=== PATIENT | female | born 1955 | race Caucasian/White ===

== ENCOUNTER → 2018-04-02 09:08 | Outpatient (CLI) | payer OTHER, SELFPAY ==
--- NOTE | 2018-04-02 09:13 | DI.RAD.S_ITS ---
PROCEDURE: [place] CATHETER PATENCY COMPARISON: [facility], , [place] CATHETER PATENCY, 03/19/2018, 10:13. INDICATIONS: MALIGNANT NEOPLASM OF BRONCHUS OR LUNG FINDINGS: Following administration of Isovue-300 into the patient's left chest port, there is redemonstration of large fibrin sheath measuring at least 8-9 cm in length along the distal catheter which projects within a persistent left SVC. This appears unchanged since the prior study dated 03/19/18. No evidence of catheter leakage IMPRESSION: Large fibrin sheath, as before with no definite interval change Dictated by: Joey Ramon M.D. on 04/02/2018 at 10:29 Approved by: Joey Ramon M.D. on 04/02/2018 at 10:31
== END ==
PROVIDERS: Family Provider Family Medicine; PCP Family Medicine; Visit Provider Nurse Practitioner Gerontology
DX: Z45.2 Encounter for adjustment and management of vascular access device (principal); C34.90 Malignant neoplasm of unspecified part of unspecified bronchus or lung
CPT/HCPCS: 76000

== ENCOUNTER 2018-04-21 11:19 | Day surgery (SDC) | payer OTHER, SELFPAY ==
[2018-04-14 10:21] VITALS: BMI 30.7
[2018-04-21] VITALS (8 sets, daily range): BP systolic 119–166; BP diastolic 69–84; PULSE 82–103; RESP 13–20; TEMP 35.9–36.2; O2SAT 94–97; BMI 30.7
[2018-04-21] MEDS: LACTATED RINGERS 1,000 ML 42 ML IV (11:50)
--- NOTE | 2018-04-21 12:31 | SUR.PREOP ---
Pt is ready for OR at this time. PIV in place, IVF at [facility], Nursing Admission Database is complete, and INFORMATION ASSISTANT and Dr Sofia have seen Pt. Anesthesia will see Pt prior to going back to the OR. Pt will have assistance at home from housemate and daughter will be staying with her for while today.
--- NOTE | 2018-04-21 12:33 | PM.PREOP ---
Pre-operative Note Interval Note Pre-op Check: History & Physical Reviewed by Physician
[2018-04-21] MEDS: CEFAZOLIN 2 GM/100 ML FROZ.PIGGY IV (12:55)
[2018-04-21] MEDS: SODIUM CHLORIDE 0.9% FLUSH 10 ML IV (13:11)
[2018-04-21] MEDS: LIDOCAINE 1% W/EPI INJ 20 ML INJ (13:11)
[2018-04-21] MEDS: BUPIVACAINE 0.5% (PF) 30 ML VIAL INJ (13:12)
--- NOTE | 2018-04-21 13:15 | SUR.OPER ---
Supine on padded OR bed, head on gel donut, right arm padded and tucked at side, left arm secured on padded armboard legs uncrossed, safety belt at thigh, tape over blanket over lower legs .
--- NOTE | 2018-04-21 13:46 | P.OP_ITS ---
Operative Date/Time/Diagnoses - Date of procedure: 04/21/18 Time of procedure: 13:41 Pre-op diagnosis: Power port in the left arm in the setting of a left arm DVT. Port no longer functioning for hematology due to fibrin sheath. Post-op diagnosis: same Procedure & Clinicians Procedure: Right subclavian power port placement and removal of left subclavian power port Same procedure as scheduled: Yes Indications: Nonfunctioning left subclavian PowerPort in the setting of a left arm DVT. The patient has stage IV malignancy and requires ongoing central chemotherapy as well as frequent hematologic studies. Surgeon: Abi Sofia Anesthesia Type: General and Local Operative Notes Findings: 1. Very minimal bleeding at either site-either insertion or removal site 2. Right subclavian power port in good position in the superior vena cava Closure Type: primary Specimen(s): none sent Applied: implant(s) (Low profile right subclavian power port) Estimated Blood Loss (mL): 10 Procedure in detail: After obtaining informed consent, the patient was brought to the operating room and placed in the supine position on the operating table. Following successful induction of general endotracheal anesthesia, appropriate padding of all bony prominences, and placement of appropriate monitors, the right chest was prepped and draped in a standard surgical fashion. A timeout was held per SCOAP protocol. A mixture of local anesthetics was infiltrated in the deltopectoral groove on the right side. The right subclavian vein was accessed via the Seldinger technique and a wire was gently placed into the vein. Fluoroscopy was used to verify position of the wire in the subclavian vein. We next created a pocket of approximately 2 cm inferior to the access site of the vein. This was checked for size and found to fit the port nicely. The included tunneling device was used to place the tubing and the pocket connecting it to the access site of the subclavian vein. The tubing was trimmed to an appropriate length and connected to the Port-A-Cath. The Port-A-Cath was sewn into place in the pocket using interrupted Prolene sutures. The pocket was closed in 2 layers. The dilator and introducer were then gently passed over the wire and into the subclavian vein. The wire and dilator were removed leaving only the introducer. The tubing was then placed in the introducer and the introducer removed per group leader semiconductor processing's directions. The port was then flushed with saline solution and found to be functional and in good position. It was then hep- locked with 2000 units of heparin. The incision was closed in 2 layers with Vicryl and Monocryl sutures. Dermabond was applied to the skin. We now turned our attention to removal of the left subclavian port. Following infiltration with local anesthetic to create a field block, the existing healed incision on the left side was repeated. This was carried down through the skin and subcutaneous tissue to reveal the tubing of the implanted central venous device. The tubing was carefully dissected free from surrounding structures and delivered into the field. Pressure was held at the deltopectoral groove to prevent air embolus and backbleeding. After 5 minutes time, we continued with dissection of the remaining portion of the port. The reservoir itself remained in the pocket and has been incorporated into the tissue. This was carefully dissected free with judicious use of a scalpel. It was delivered into the field as a single piece with tubing attached. The incision was checked for hemostasis and irrigated with warm saline solution. Once we were satisfied that all was clean and dry, it was closed in 2 layers with Vicryl Monocryl sutures. Dermabond was applied to the skin incision. All sponge, needle, and instrument counts were correct at the conclusion of the case. The patient was allowed to awaken from sedation without difficulty and taken to the post anesthesia care unit in good condition. Complications: none Condition: stable Disposition: PACU Plan for aftercare: 1. Discharge to home 2. The port is ready for use
--- NOTE | 2018-04-21 14:00 | DI.RAD.S_ITS ---
PROCEDURE: XR CHEST 1V INDICATIONS: 62-year-old female with Port-A-Cath replacement. TECHNIQUE: One view of the chest was acquired. COMPARISON: [facility], CT, PE STUDY (CTA CHEST), 02/10/2018, 11:45. [facility], CR, XR CHEST 1V, 03/16/2018, 16:41. [facility], CR, CHEST 2 VIEW, 02/15/2018, 16:29. [facility], CR, CHEST 2 VIEW, 02/09/2018, 11:54. FINDINGS: Surgical changes and devices: Left chest wall Port-A-Cath has been removed. Right chest wall Port-A-Cath is now present, with tip in the upper superior vena cava. Lungs and pleura: No pleural effusions or pneumothorax. Left upper lung nodule now measures 2.4 cm (previously 1.9 cm). Mediastinum: Mediastinal contours appear normal. Heart size is normal. Bones and chest wall: No suspicious bony lesions. Overlying soft tissues appear unremarkable. IMPRESSION: 1. New right chest wall Port-A-Cath is in expected position. No pneumothorax. 2. Apparent size increase of left upper lung nodule up to 2.4 cm may reflect magnification differences between AP and PA projections. As such, consider more accurate confirmation of any interval size change with chest CT. Dictated by: David Crenshaw M.D. on 04/21/2018 at 14:10 Approved by: David Crenshaw M.D. on 04/21/2018 at 14:13
--- NOTE | 2018-04-21 14:14 | SUR.PHASEI ---
PT TRANSFERED TO OPD IN STABLE CONDITION, VSS. BEDSIDE REPORT GIVEN TO BENNY ESPARZA. TRANSFERED CARE OF PT TO BENNY ESPARZA AT THIS TIME. PT ALERT AND TALKING TO RN.
== END 2018-04-21 14:53 | disposition home or self-care (01) ==
PROVIDERS: PCP Family Medicine; Visit Provider Surgery
PROC: (CPT 36590; principal; 2018-04-21 12:45)
PROC: (CPT 36561; 2018-04-21 12:45)
DX: Z45.2 Encounter for adjustment and management of vascular access device (principal); C34.90 Malignant neoplasm of unspecified part of unspecified bronchus or lung; I82.722 Chronic embolism and thrombosis of deep veins of left upper extremity; E03.9 Hypothyroidism, unspecified; E78.00 Pure hypercholesterolemia, unspecified; I10 Essential (primary) hypertension; F41.9 Anxiety disorder, unspecified
CPT/HCPCS: 36561; 36590; 71045; 76001; C1788; J0690; J1100; J1644; J2250; J2405; J2704; J3010

== ENCOUNTER → 2018-05-07 12:32 | Outpatient (CLI) | payer OTHER, SELFPAY ==
--- NOTE | 2018-05-07 12:34 | DI.MRI.S_ITS ---
PROCEDURE: MR HEAD/BRAIN WO/W CON INDICATIONS: METASTATIC LUNG CANCER TECHNIQUE: Noncontrast axial T1 spin echo, axial T2 fast spin echo, sagittal and axial FLAIR, coronal T2 fast spin echo, axial gradient echo, axial diffusion and ADC through the brain. After the administration of contrast, axial and coronal T1 spin echo with fat saturation through the brain. COMPARISON: [facility], CR, XR CHEST 1V, 04/21/2018, 13:53. [facility], CT, HEAD WITHOUT CONTRAST, 11/10/2017, 15:37. FINDINGS: Image quality: Excellent. CSF spaces: Basal cisterns are patent. No extra-axial fluid collections. Ventricles are normal in size and shape. Brain: The previously seen right parieto-occipital mass has been resected. A resection cavity is seen, which demonstrates mild gliotic change and hemosiderin deposition along its margins. There is a minimal to mild amount of enhancement seen along the resection cavity margins. No midline shift. There is cerebral volume loss for age. There is periventricular white matter chronic small vessel ischemic change. The brainstem appears normal. Diffusion-weighted images demonstrate no acute ischemic insults. No chronic ischemic insults. Normal intravascular flow voids are present. Skull and face: Right posterior craniotomy changes are seen. Calvarial marrow is normal in signal. Orbits appear normal. Sinuses: Moderate to prominent bilateral vascular spots can be seen. No significant paranasal sinus disease is seen. IMPRESSION: Right parieto-occipital resection cavity, with minimal to mild enhancement seen along the resection cavity bed. This is felt most likely to be within postoperative limits. However, please consider a short term followup study in 3-6 months for further evaluation. Dictated by: Gennaro Castanon M.D. on 05/07/2018 at 13:40 Approved by: Gennaro Castanon M.D. on 05/07/2018 at 13:45
== END ==
PROVIDERS: PCP Family Medicine; Visit Provider Nurse Practitioner Gerontology
DX: C79.9 Secondary malignant neoplasm of unspecified site (principal); C34.90 Malignant neoplasm of unspecified part of unspecified bronchus or lung
CPT/HCPCS: 70553; A9579

== ENCOUNTER → 2018-07-01 06:27 | Outpatient (CLI) | payer OTHER, SELFPAY ==
--- NOTE | 2018-07-01 08:27 | DI.CT.S_ITS ---
PROCEDURE: CT SOFT TISSUE NECK W CON INDICATIONS: follow up NSLC TECHNIQUE: After the administration of intravenous contrast, 3.0 mm axial sections acquired from the sella to the aortic arch. Additional oblique axial 3.0 mm sections acquired through the pharynx. 3 mm thick coronal and sagittal reformats were generated. For radiation dose reduction, the following was used: automated exposure control. COMPARISON: [facility], CT, CHEST/ABD/PEL WITH CONTRAST, 02/01/2018, 10:02. [facility], CT, PE STUDY (CTA CHEST), 02/10/2018, 11:45. FINDINGS: Image quality: Excellent. Lymph nodes: Borderline enlarged lymph node measures 0.9 x 1.2 cm in size is seen in left supraclavicular region. Prominent 2.2 x 1.7 x 2.8 cm lymph node is noted in left infraclavicular region posterior to the level of sternoclavicular junction, not seen on previous chest CT. No other enlarged lymph nodes seen throughout the neck. Vessels: Visualized vasculature appears patent. Neck spaces: The oropharynx, nasopharynx, and pharynx demonstrate no mucosal lesions. The vocal cords, false vocal cords, pyriform sinuses, epiglottis, vallecula, and tongue base all appear normal. Extramucosal spaces appear unremarkable. Glands: The parotid and submandibular glands appear normal. Mildly enlarged right thyroid lobe with mildly heterogeneous contrast enhancement and coarse calcification is seen, which may represent nodular goiter. Miscellaneous: Visualized brain and orbits appear normal. Right chest wall Port-A-Cath tip is seen in the region of SVC. Previously described 1.6 cm lobulated left upper lobe mass with spiculated margin has increased in size, now measures approximately 2.1 x 1.7 cm in size. Right lung apex is clear. Bones: No suspicious bony lesions. Visualized sinuses and mastoids appear unremarkable. Postsurgical changes in left occipital calvarium are seen. IMPRESSION: 1. Prominent 2.2 x 1.7 x 2.8 cm lymph nodes seated left infraclavicular space posterior to the level of left sternoclavicular junction and left anterior first rib. This is new since previous CT angiogram of chest study dated 2017. Borderline enlarged left supraclavicular lymph node measures 9 x 12 mm in size. No other enlarged lymph nodes are seen in bilateral neck soft tissue. 2. Airway is patent. Normal appearing bilateral parotid glands and submandibular glands. 3. Mildly enlarged right thyroid lobe with heterogeneous enhancement and a benign appearing calcification which may represent nodular goiter. 4. Suggestion of interval increase in size of patient's known left upper lobe nodule, please correlate with CT of chest, abdomen and pelvis findings. Dictated by: Gian Costa M.D. on 07/01/2018 at 9:14 Approved by: Gian Costa M.D. on 07/01/2018 at 9:32
--- NOTE | 2018-07-01 08:27 | DI.CT.S_ITS ---
PROCEDURE: CT CHEST ABD PEL W CON INDICATIONS: follow up NSLC TECHNIQUE: After the administration of oral and intravenous contrast, 5 mm thick sections acquired from the lung apices to the symphysis. 5 mm coronal and sagittal reformats were performed, with additional 7 mm coronal MIP reformats through the lungs. For radiation dose reduction, the following was used: automated exposure control, adjustment of mA and/or kV according to patient size. COMPARISON: [facility], CT, CHEST/ABD/PEL WITH CONTRAST, 02/01/2018, 10:02. FINDINGS: Image quality: Excellent. CHEST: Lungs and pleura: Biapical scarring is seen. Patient is known lobulated 1.5 cm mass seen on previous studies now measures 2.4 x 2.3 cm in size and with spiculated margin. No other pulmonary nodule or mass is seen. No pleural effusions or pneumothorax. Central and peripheral airways appear patent and normal in caliber. Mediastinum: Heart size is normal. No pericardial effusion. Enlarged left infraclavicular lymph node posterior to left sternoclavicular junction and left anterior first rib is noted and measures 1.6 x 2.1 x 2.6 cm in its largest AP, transverse, and craniocaudal dimensions. Multiple enlarged superior mediastinal lymph nodes are again seen, now measures up to 3.3 x 3.4 x 2.9 cm in its largest AP, transverse, and clinical dimensions. This has increased in size compared to 2.8 x 1.5 cm on the previous study. Mildly prominent precarinal lymph node measures 1 cm in size is seen. Prominent left hilar lymph node measures 1.1 cm in short axis diameter is also noted. Both nodes are unchanged or slightly smaller in size compared to previous study. Thoracic aorta and central pulmonary arteries are normal in size. Esophagus is normal in caliber. There is a small hiatal hernia. Chest wall: Right chest wall Port-A-Cath tip is in the region of SVC. 1 cm left axillary lymph node is seen. A mildly prominent left supraclavicular lymph node is noted and measures up to 9 mm in short axis diameter. Thyroid gland is not well evaluated on the current study. Please refer to CT of neck soft tissue findings. ABDOMEN: Solid organs: Liver is normal in size and enhancement. Gallbladder is within normal limits. Biliary system is non dilated. Pancreas enhances normally. Spleen is normal in size and enhancement. No adrenal nodules. Kidneys demonstrate normal size and enhancement, without hydronephrosis. Left renal cyst is unchanged in size and appearance. Peritoneum and bowel: Bowel loops demonstrate normal wall thickness and caliber. No free fluid or air. Nodes and vessels: No retroperitoneal or mesenteric adenopathy by size criteria. Aorta and inferior vena cava are normal in size. Miscellaneous: No ventral hernias. There is 1.2 x 0.8 cm nodular thickening of left diaphragmatic crura, not seen on previous study. Focal 1 x 1.4 cm area of nodular thickening involving right diaphragmatic crura is also seen. PELVIS: Genitourinary: Bladder wall thickness is normal. Previously described soft tissue fullness involving left adnexal region is again seen, now measures up to 5.1 x 4.9 x 4 cm in its largest transverse, AP, and craniocaudal dimensions, increased in size compared to previous study which measured approximately 4 x 3.5 cm in size. Heterogeneous contrast enhancement in this lesion is seen. There is also suggestion of multiple uterine fibroids, not significantly changed from prior study. Miscellaneous: No inguinal hernias or adenopathy. Bones: No suspicious bony lesions. No vertebral body compression fractures. IMPRESSION: 1. Interval increase in size of patient's known left upper lobe nodule, now measures 2.3 x 2.4 cm in size with spiculated margins, which may indicate progression of disease. 2. Interval development of borderline enlarged left axillary lymph node, left supraclavicular lymph node as well as a markedly enlarged left infraclavicular lymph node suspicious for metastatic lymphadenopathy. 3. Interval increase in size of patient's known left superior mediastinum adenopathy. Mildly prominent mediastinal and left hilar lymph nodes are also seen. 4. Interval development of nonspecific nodular thickening involving bilateral diaphragmatic crura. No gross abdominal or pelvic adenopathy. 5. Interval increase in size of patient's known left adnexal mass with similar enhancement appearance. Consider ultrasound of pelvis for further evaluation. Dictated by: Gian Costa M.D. on 07/01/2018 9:33 Approved by: Gian Costa M.D. on 07/01/2018 at 11:22
--- NOTE | 2018-07-05 11:40 | ONC.NAV ---
Description: Patient Temporary Transfer Activity: PERSONNEL RESEARCH PSYCHOLOGIST called patient to explain that we do not have an Oncologist provider that can take [place] at this time, and that this is being actively worked on by the hospital, that we should have this in place within the next few weeks. Explained our need to transfer her care temporarily, and that she could see Dr. Flores or Dr. Sawyer at [facility], then continue on with the same physician here once we have [place] again. She expressed understanding and was okay with this. Notified Sakina (pharmacy scheduler) and Suad at [facility] via secure email, faxed ONC records to [facility].
== END ==
PROVIDERS: Family Provider Family Medicine; PCP Family Medicine; Visit Provider Nurse Practitioner Gerontology
DX: C34.90 Malignant neoplasm of unspecified part of unspecified bronchus or lung (principal); R59.0 Localized enlarged lymph nodes
CPT/HCPCS: 70491; 71260; 74177; Q9967

== ENCOUNTER → 2018-07-14 11:14 | Outpatient (CLI) | payer OTHER, SELFPAY ==
[2018-07-14 11:40] LABS: INR 2.6 (0.9-1.3); Prothrombin Time 28.4 SECONDS (10.1-12.7)
[2018-07-14] MEDS: SODIUM CHLORIDE 0.9% 1,000 ML 1000 ML IV (11:51)
[2018-07-14 12:20] VITALS: BP 120/59; PULSE 91; RESP 18; TEMP 36.5; O2SAT 97
--- NOTE | 2018-07-14 12:21 | PC.NURSE ---
Pt seen in clinic today, received IV fluids. Reports diarrhea for two weeks now. Cdiff pending. Denies N/V. Reports good appetite, I eat good, everything just goes right through me. Denies pain. Denies SOB and chest discomfort. PT tearful at times, states they switched my anti depressant medication and I don't think the new one is working. Pt see Dr. Leong tomorrow states I'm going to talk to him about it. Listen to pt voice concerns, provided reassurance. RR equal and unlabored.
[2018-07-14 13:13] LABS: Clostridium Difficile Tox PCR Negative for C. diff
== END ==
PROVIDERS: Family Provider Family Medicine; PCP Family Medicine; Visit Provider Nurse Practitioner Gerontology
DX: C34.90 Malignant neoplasm of unspecified part of unspecified bronchus or lung (principal); R19.7 Diarrhea, unspecified; Z79.01 Long term (current) use of anticoagulants
CPT/HCPCS: 36415; 85610; 87493; 96360

== ENCOUNTER → 2018-07-28 08:33 | Outpatient (CLI) | payer MEDICARE, OTHER, SELFPAY ==
--- NOTE | 2018-07-28 08:35 | DI.MRI.S_ITS ---
PROCEDURE: MR BRAIN (IAC) WWO CON INDICATIONS: LUNG CANCER TECHNIQUE: Noncontrast sagittal T1 spin echo, axial FLAIR, axial gradient echo, axial diffusion and ADC through the brain. Axial thin-slice 3D CISS, coronal TruFISP, axial T1 spin echo with fat saturation through the internal auditory canals. After the administration of contrast, thin slice axial and coronal T1 spin echo with fat saturation through the internal auditory canals, and axial T1 spin echo with fat saturation through the brain. COMPARISON: [facility], MR, MR HEAD/BRAIN WO/W CON, 05/07/2018, 12:39. [facility], CT, CT SOFT TISSUE NECK W CON, 07/01/2018, 7:49. FINDINGS: Image quality: Excellent. Cerebellopontine angles: No cerebellopontine angle masses. The inner ear structures appear normally formed. No suspicious enhancement in the internal auditory canal or along the courses of the 7th and 8th cranial nerves. No holly vascular loops are seen into the internal auditory canals. CSF spaces: Ventricles are normal in size and shape. No extra-axial fluid collections. Basal cisterns are patent. Brain: A right parieto-occipital resection cavity is again seen. Gliotic changes are seen along the margins of the resection cavity. Minimal enhancement can be seen along the margins of the resection cavity, which overall appear slightly less prominent than on the prior MRI dated 05/07/18. No new masses are seen. No additional abnormal enhancement can be seen. No intracranial bleeds or mass effects. Faulkner-white matter interface is intact. No abnormal intracranial enhancement. Diffusion weighted images demonstrate no acute ischemic insults. Brainstem appears normal. Normal intravascular flow voids are present. Skull and face: Calvarial marrow signal is normal. Orbits appear normal. Sinuses: Sinuses and mastoids are clear. IMPRESSION: No suspicious masses are seen. No findings of additional metastatic disease are seen. Right parieto-occipital resection cavity, with minimal enhancement along the margins of the resection cavity, which is slightly improved compared to the prior examination. Dictated by: Gennaro Castanon M.D. on 07/28/2018 at 9:54 Approved by: Gennaro Castanon M.D. on 07/28/2018 at 9:58
== END ==
PROVIDERS: Family Provider Family Medicine; PCP Family Medicine; Visit Provider Internal Medicine Hematology & Oncology
DX: C34.90 Malignant neoplasm of unspecified part of unspecified bronchus or lung (principal); C79.31 Secondary malignant neoplasm of brain
CPT/HCPCS: 36592; 70553; 80053; 84443; 85025

== ENCOUNTER 2018-07-28 10:30 | Outpatient (RCR) | payer MEDICARE, OTHER, SELFPAY ==
[2018-06-09 15:27] VITALS: BP 130/70; BP 90/70
--- NOTE | 2018-06-10 14:24 | PT.OIE ---
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) Secondary malignant neoplasm of brain (Chronic) Hyperlipidemia (Chronic) Chronic major depressive disorder (Chronic) Current smoker (Chronic 06/15/14) Essential hypertension (Chronic 01/28/17) 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) Weakness of left lower extremity (Chronic 11/25/17) Non-small cell carcinoma of lung (Chronic 02/11/18) Anxiety (Acute) Chronic back pain (Acute) Depression (Acute) Dyspnea (Acute) History of anemia (Acute) History of headache (Acute) Hypertension (Acute) Hypothyroidism (Acute) Peripheral vision loss (Acute) Port-a-cath in place (Acute) Postmenopausal (Acute) Recurrent sinusitis (Acute) Thrombus (Acute) Worsening headaches (Acute) Hyperlipidemia (Chronic) Chicken pox (Resolved) Measles (Resolved) Past Surgical History (Last Reviewed 05/12/18 @ 16:11 by Nava Sutherland LPN) Status post tubal ligation Provider Visit Care Team Role Provider Type Dank Leong MD Attending Provider Physician Primary Care Provider Specialty: [facility] Practice Address: [address] [place] [address], [facility] Email: [email or web address] Physical Therapy Initial Evaluation PT-OP-A Visit Information Start: 06/09/18 15:24 Freq: Status: Active Protocol: Document 06/09/18 15:27 EA (Rec: 06/09/18 15:47 EA [id number]) Out-Patient Physical Therapy Visit Information Visit Information Visit Type Initial Evaluation Visit Start Time 10:30 Visit Stop Time 11:15 Total Visit Minutes 45 Visit Number 1 Evaluation Information Evaluation Date 06/09/18 PT-OP-B Current Condition Start: 06/09/18 15:24 Freq: Status: Active Protocol: Document 06/09/18 15:27 EA (Rec: 06/09/18 15:47 EA [id number]) Current Condition History of Current Condition Onset Date 7 months ago Current Complaints General body weakness, balance and gait instability, multiple falls History of Current Condition Patient reports present condition started right after head surgery and cancer medical treatment. Patient states multiple falls usually happens when she abruptly stood up from sitting and as well when she is standing up with vertical head movement. Pt believes her dizziness is the reason of her fall. 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 Prior Treatments and Tests Ongoing cancer medical treatment since 10/2017. Ongoing left arm blood clots treatment. Future Testing and Treatments Planned Ongoing cancer medical treatment since 10/2017. Ongoing left arm blood clots treatment. Treatment Goals Patient/Caregiver Goals Patient wants to improve general body strength to prevent falls, improve endurance. Prior Functional Status Baseline Function- ADL's Independent Baseline Function- Mobility Independent Current Functional Impairments (Reported) Functional Limitations- ADL's Indep with moderate difficulty due to low endurance and weakness Functional Limitations- Mobility/Gait Gait intability that requires cane for out side amb Functional Limitations- Other Diffficulty of climbing stairs at home with total 19 steps Personal Factors Other Personal Factors That May Effect Current problems: Ongoing Therapy/Recovery cancer treatment, depression, multiple falls, Dizziness, sligt memory loss, vision problem. PT-OP-C Subjective Start: 06/09/18 15:24 Freq: Status: Active Protocol: Document 06/09/18 15:27 EA (Rec: 06/09/18 15:47 EA [id number]) OP-PT Subjective Patient Comments Patient Comments Patient wants to improve general body strength to prevent falls, improve endurance Patient Reported Progress Same PT-OP-D Balance Start: 06/09/18 15:24 Freq: Status: Active Protocol: Document 06/09/18 15:27 EA (Rec: 06/09/18 15:47 EA [id number]) OP-PT Balance Assessment Standing Balance Static Standing Balance Ability Normal Dynamic Standing Balance Ability Good Balance Tests Functional Reach Functional Reach Impairment Rating 1 to <20% Impaired (Score 9) Single Limb Standing Single Limb- Right <3 secs Single Limb- Left < 3 secs Tandem Tandem Standing < 5 sec Lopez Fall Scale Copyright Permission John RUANO, John RM, [place] S[place]. Development of a scale to identify the fall- prone patient. Can J Aging 1989;8;366-7. Navneet Lopez (2009). Preventing patient falls. (2nd ed). Nance: Salcedo. PT-OP-E Functional Tests Start: 06/09/18 15:24 Freq: Status: Active Protocol: Document 06/09/18 15:27 EA (Rec: 06/09/18 16:16 EA [id number]) Functional Tests Dynamic Gait Index (DGI) DGI Impairment Rating 20 to <40% Impaired (Score 15- 19) PT-OP-H Neuro Start: 06/09/18 15:24 Freq: Status: Active Protocol: Document 06/09/18 15:27 EA (Rec: 06/09/18 16:16 EA [id number]) Coordination Evaluation Upper Extremity Tests Left Finger to Nose Test Normal Performance Finger to Therapist's Finger Test Normal Performance Pronation/Supination Test Normal Performance Right Finger to Nose Test Normal Performance Finger to Therapist's Finger Test Normal Performance Finger to Finger Test Normal Performance Lower Extremity Tests Left Alternate Heel to Knee; Heel to Toe Test Normal Performance Heel on Westfall Test Normal Performance Right Alternate Heel to Knee; Heel to Toe Test Normal Performance Heel on [place]fall Test Normal Performance Deep Tendon Reflex & Clonus Assessment Deep Tendon Reflex Patellar Deep Tendon Reflex 2+ Normal Vital Signs Blood Pressure Standing Blood Pressure (90/60-120/80 mmHg) 90/70 Blood Pressure Source Manual Cuff Right Upper Extremity Sitting Blood Pressure (90/60-120/80 mmHg) 130/70 H Blood Pressure Source Manual Cuff Right Upper Extremity Comments Vital Signs Comments Blood pressure drops more 20 mmHg from sitting to abrupt standing: Patient dizzines could be realted to Orthostatic hypotension PT-OP-M Strength Start: 06/09/18 15:24 Freq: Status: Active Protocol: Document 06/09/18 15:27 EA (Rec: 06/09/18 16:16 EA [id number]) Trunk Strength Trunk Manual Muscle Testing Flexion 3+ Fair+ Extension 3+ Fair+ Rotation Left 4- Good- Rotation Right 4- Good- Lateral Flexion Left 4- Good- Lateral Flexion Right 4- Good- Shoulder Strength Shoulder Manual Muscle Testing Left Comments Both UE's major muscle group grossly graded 4/5 Hip Strength Hip Manual Muscle Testing Left Comments Both LE major muscle group grossly graded 4/5 Right Comments Both LE's shirlene muscle group grossly graded 4/5 PT-OP-Q Treatments Start: 06/09/18 15:24 Freq: Status: Active Protocol: Document 06/09/18 15:27 EA (Rec: 06/09/18 16:16 EA [id number]) Self-Care/Home Management Treatment Education Patient Education Fall Risk Safety Other Education Sitting to standing strategies to prevent hypotension; safety ambulating outside. PT-OP-T Assessment and Plan Start: 06/09/18 15:24 Freq: Status: Active Protocol: Document 06/09/18 15:27 YANET (Rec: 06/09/18 16:16 EA [id number]) Physical Therapy Assessment Rehab Potential Rehabilitation Potential Fair Evaluation Complexity Number of Personal Factors/Comorbidities 3 or More Number of Body Systems Impaired 4 or More Clinical Presentation at Evaluation Unstable Impairments Impairments Activity Tolerance Balance Gait Strength Other Concerns Fall Risk yes Barriers to Rehabilitation Orthostatic hypotension, Ongoing cancer medical treatment, Depression stage Goals Three Impairment Impaired standing dynamic balance that led to 3 falls in 1 month Shelter Goal (LTG) Patient will record no falls in 1 month LTG Duration 4 wks Two Impairment Dynamic gait index score of 18 (Fall risk) Conical Mixer Goal (LTG) Patient have DGI score of 24 to prevent falls. LTG Duration 4 wks One Impairment Increase SOB at > 200 ft Shelter Goal (LTG) Patient will ambulate > 500 ft with min to no SOB LTG Duration 4 wks Assessment Summary Assessment Pleasant 62 y/o F patient who was currently diagnosed with matastasized lung cancer with ongoing medical treatment with current problems of general body deconditioning and gait instability. Today functional test reveals that patient is fall risk. General body weakness/fatigue accompanied with SOB noted during gait tests. Due to current medical condition, patient is a fair candidate to skilled PT. Pt will benefit with skilled PT to enhance or maintain current functional level. Physical Therapy Plan Frequency and Duration Frequency of Treatment 2x/Week Plan of Care Start Date 06/09/18 Plan of Care End Date 07/28/18 Therapeutic Interventions Therapeutic Interventions Balance Training Gait Training Home Exercise Program Neuromuscular Re-education Patient/Caregiver Education Self-Care/Home Management Therapeutic Activities Therapeutic Exercises Vestibular Rehabilitation Other Referrals/Consults Referrals/Consults Recommended To refer back to Cancer doctor for left arm blood clots clearance for exercises. To refer back to her primary physician for possible medication review due unstable blood pressure. Next Visit Focus/Plan Next Note Type Treatment Note Next Visit Plan 1. cardio: light intensity 2. General Body light weight high reps resistance exercise 3. Standing dynamic balance training with head/neck challenges 4. Functional sit to stand training
--- NOTE | 2018-06-10 14:27 | PT.OPPOC ---
Current Diagnoses Weakness (06/09/18) Provider Visit Care Team Role Provider Type Dank Leong MD Attending Provider Physician Primary Care Provider Specialty: Family Practice Address: [address] [place] [address], [id number] Email: [email or web address] Plan Of Care PT-OP-T Assessment and Plan Start: 06/09/18 15:24 Freq: Status: Active Protocol: Document 06/09/18 15:27 EA (Rec: 06/09/18 16:16 EA [id number]) Physical Therapy Assessment Rehab Potential Rehabilitation Potential Fair Evaluation Complexity Number of Personal Factors/Comorbidities 3 or More Number of Body Systems Impaired 4 or More Clinical Presentation at Evaluation Unstable Impairments Impairments Activity Tolerance Balance Gait Strength Other Concerns Fall Risk yes Barriers to Rehabilitation Orthostatic hypotension, Ongoing cancer medical treatment, Depression stage Goals Three Impairment Impaired standing dynamic balance that led to 3 falls in 1 month Penitentiary Goal (LTG) Patient will record no falls in 1 month LTG Duration 4 wks Two Impairment Dynamic gait index score of 18 (Fall risk) Penitentiary Goal (LTG) Patient have DGI score of 24 to prevent falls. LTG Duration 4 wks One Impairment Increase SOB at > 200 ft Penitentiary Goal (LTG) Patient will ambulate > 500 ft with min to no SOB LTG Duration 4 wks Assessment Summary Assessment Pleasant 62 y/o F patient who was currently diagnosed with matastasized lung cancer with ongoing medical tretament with current problems of general body deconditioning and gait instability. Today functional test reveals that patient is fall risk. General body weakness/fatigue accompanied with SOB noted during gait tests. Due to current medical condition, patient is a fair candidate to skilled PT. Pt will benefit with skilled PT to enhance or maintain current functional level. Physical Therapy Plan Frequency and Duration Frequency of Treatment 2x/Week Plan of Care Start Date 06/09/18 Plan of Care End Date 07/28/18 Therapeutic Interventions Therapeutic Interventions Balance Training Gait Training Home Exercise Program Neuromuscular Re-education Patient/Caregiver Education Self-Care/Home Management Therapeutic Activities Therapeutic Exercises Vestibular Rehabilitation Other Referrals/Consults Referrals/Consults Recommended To refer back to Cancer doctor for left arm blood clots clearance for exercises. To refer back to her primary physician for possible medication review due unstabble blood pressure. Next Visit Focus/Plan Next Note Type Treatment Note Next Visit Plan 1. cardio: light intensity 2. General Body light weight high reps resistance exercise 3. Standing dynamic balance training with head/neck challenges 4. Functional sit to stand training Plan of Care Dates Plan of Care Start Date 06/09/18 Plan of Care End Date 07/28/18 Please Sign and Return: I have reviewed this Plan of Care and certify that the skilled therapy services above are required to meet the patient?s needs. Physician Signature Date Printed Name and Credentials Clinical Instructor Signature Printed Name and Credentials
--- NOTE | 2018-06-14 10:58 | PT.OTN ---
Current Diagnoses Weakness (06/14/18) Physical Therapy Treatment Note PT-OP-A Visit Information Start: 06/09/18 15:24 Freq: Status: Active Protocol: Document 06/14/18 09:50 SAK (Rec: 06/14/18 10:44 SAK [id number]) Out-Patient Physical Therapy Visit Information Visit Information Visit Type Treatment Note Visit Start Time 09:45 Visit Stop Time 10:30 Total Visit Minutes 45 Visit Number 2 Number of [employer]AM[employer] CONSULTANT Visits 0 Evaluation Information Evaluation Date 06/09/18 PT-OP-B Current Condition Start: 06/09/18 15:24 Freq: Status: Active Protocol: Document 06/09/18 15:27 EA (Rec: 06/09/18 15:47 EA [id number]) Current Condition History of Current Condition Onset Date 7 months ago Current Complaints General body weakness, balance and gait instability, multiple falls History of Current Condition Patient reports present condition started right after head surgery and cancer medical treatment. Patient states multiple falls usually happens when she abruptly stood up from sitting and as well when she is standing up with vertical head movement. Pt believes her dizziness is the reason of her fall. 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 Prior Treatments and Tests Ongoing cancer medical treatment since 10/2017. Ongoing left arm blood clots treatment. Future Testing and Treatments Planned Ongoing cancer medical treatment since 10/2017. Ongoing left arm blood clots treatment. Treatment Goals Patient/Caregiver Goals Patient wants to improve general body strength to prevent falls, improve endurance. Prior Functional Status Baseline Function- ADL's Independent Baseline Function- Mobility Independent Current Functional Impairments (Reported) Functional Limitations- ADL's Indep with moderate difficulty due to low endurance and weakness Functional Limitations- Mobility/Gait Gait intability that requires cane for out side amb Functional Limitations- Other Diffficulty of climbing stairs at home with total 19 steps Personal Factors Other Personal Factors That May Effect Current problems: Ongoing Therapy/Recovery cancer treatment, depression, multiple falls, Dizziness, sligt memory loss, vision problem. PT-OP-C Subjective Start: 06/09/18 15:24 Freq: Status: Active Protocol: Document 06/14/18 09:50 SAK (Rec: 06/14/18 10:44 SAK [id number]) OP-PT Subjective Patient Comments Patient Comments Reports feeling a little nauseous which is nbot unusual PT-OP-D Balance Start: 06/09/18 15:24 Freq: Status: Active Protocol: Document 06/09/18 15:27 EA (Rec: 06/09/18 15:47 EA [id number]) OP-PT Balance Assessment Standing Balance Static Standing Balance Ability Normal Dynamic Standing Balance Ability Good Balance Tests Functional Reach Functional Reach Impairment Rating 1 to <20% Impaired (Score 9) Single Limb Standing Single Limb- Right <3 secs Single Limb- Left < 3 secs Tandem Tandem Standing < 5 sec Lopez Fall Scale Copyright Permission John JM, John RM, Teto SJ. Development of a scale to identify the fall- prone patient. Can J Aging 1989;8;366-7. Navneet Lopez (2009). Preventing patient falls. (2nd ed). [place]: Salcedo. PT-OP-E Functional Tests Start: 06/09/18 15:24 Freq: Status: Active Protocol: Document 06/09/18 15:27 EA (Rec: 06/09/18 16:16 EA [id number]) Functional Tests Dynamic Gait Index (DGI) DGI Impairment Rating 20 to <40% Impaired (Score 15- 19) PT-OP-H Neuro Start: 06/09/18 15:24 Freq: Status: Active Protocol: Document 06/09/18 15:27 EA (Rec: 06/09/18 16:16 EA [id number]) Coordination Evaluation Upper Extremity Tests Left Finger to Nose Test Normal Performance Finger to Therapist's Finger Test Normal Performance Pronation/Supination Test Normal Performance Right Finger to Nose Test Normal Performance Finger to Therapist's Finger Test Normal Performance Finger to Finger Test Normal Performance Lower Extremity Tests Left Alternate Heel to Knee; Heel to Toe Test Normal Performance Heel on [place] Test Normal Performance Right Alternate Heel to Knee; Heel to Toe Test Normal Performance Heel on [place] Test Normal Performance Deep Tendon Reflex & Clonus Assessment Deep Tendon Reflex Patellar Deep Tendon Reflex 2+ Normal Vital Signs Blood Pressure Standing Blood Pressure (90/60-120/80 mmHg) 90/70 Blood Pressure Source Manual Cuff Right Upper Extremity Sitting Blood Pressure (90/60-120/80 mmHg) 130/70 H Blood Pressure Source Manual Cuff Right Upper Extremity Comments Vital Signs Comments Blood pressure drops more 20 mmHg from sitting to abrupt standing: Patient dizzines could be realted to Orthostatic hypotension PT-OP-M Strength Start: 06/09/18 15:24 Freq: Status: Active Protocol: Document 06/09/18 15:27 EA (Rec: 06/09/18 16:16 EA [id number]) Trunk Strength Trunk Manual Muscle Testing Flexion 3+ Fair+ Extension 3+ Fair+ Rotation Left 4- Good- Rotation Right 4- Good- Lateral Flexion Left 4- Good- Lateral Flexion Right 4- Good- Shoulder Strength Shoulder Manual Muscle Testing Left Comments Both UE's major muscle group grossly graded 4/5 Hip Strength Hip Manual Muscle Testing Left Comments Both LE major muscle group grossly graded 4/5 Right Comments Both LE's shirlene muscle group grossly graded 4/5 PT-OP-Q Treatments Start: 06/09/18 15:24 Freq: Status: Active Protocol: Document 06/14/18 09:50 SAK (Rec: 06/14/18 10:44 SAK [id number]) Cardio Equipment Recumbent Elliptical ([employer]) Duration (Minutes) 6 Resistance 2 Seat Position 10 Recumbent Bicycle Duration (Minutes) 2 Resistance 2 Therapeutic Exercises Standing Exercises 1 Standing Exercise Name heel raise, march, backwrd walk, sidestep, squat Side bilateral Reps/Minutes 10x ea Therapeutic Activity Therapeutic Activity 1 Name sit to/from stand Comments cues for alignment, sequencing . Tends to put knees together when sitting to brace. Neuro Re-Education Treatment Balance Activities 1 Details SLS, tandem stand, tiltboard fwd/bck and side to side bal and wt shift, Equipment parallel bars for UE support PRN Reps/Duration 15 min Comments also stand with EC Self-Care/Home Management Treatment Education Patient Education Home Exercise Program Other Education issued written program PT-OP-T Assessment and Plan Start: 06/09/18 15:24 Freq: Status: Active Protocol: Document 06/14/18 10:53 SAK (Rec: 06/14/18 10:57 SAK [id number]) Physical Therapy Assessment Assessment Summary Assessment Patient requires frequent rests, had 2 episodes of emesis at end of session; reports due to probably drinking too much water as offered by PT during session. Requires verbal and manual cues with ex, is not safe without UE support for ex; stressed HEP be challenging but safe with patient performing at counter for UE support. Unsteady and dizzy with head and neck movement during ex Physical Therapy Plan Frequency and Duration Frequency of Treatment 2x/Week Plan of Care Start Date 06/09/18 Plan of Care End Date 07/28/18 Therapeutic Interventions Therapeutic Interventions Balance Training Gait Training Home Exercise Program Neuromuscular Re-education Patient/Caregiver Education Self-Care/Home Management Therapeutic Activities Therapeutic Exercises Vestibular Rehabilitation Next Visit Focus/Plan Next Note Type Treatment Note Next Visit Plan Shuttle balance, shuttle leg press next session. Progress with dynamic balance activities. Encourage small sips of water throughout session
--- NOTE | 2018-06-16 12:15 | PT.OTN ---
Current Diagnoses Weakness (06/16/18) Physical Therapy Treatment Note PT-OP-A Visit Information Start: 06/09/18 15:24 Freq: Status: Active Protocol: Document 06/16/18 10:33 EA (Rec: 06/16/18 11:16 EA [id number]) Out-Patient Physical Therapy Visit Information Visit Information Visit Type Treatment Note Visit Start Time 10:30 Visit Stop Time 11:15 Total Visit Minutes 40 Visit Number 3 Number of ENVIRONMENTAL EMERGENCIES ASSISTANT Visits 0 PT-OP-B Current Condition Start: 06/09/18 15:24 Freq: Status: Active Protocol: Document 06/09/18 15:27 EA (Rec: 06/09/18 15:47 EA [id number]) Current Condition History of Current Condition Onset Date 7 months ago Current Complaints General body weakness, balance and gait instability, multiple falls History of Current Condition Patient reports present condition started right after head surgery and cancer medical treatment. Patient states multiple falls usually happens when she abruptly stood up from sitting and as well when she is standing up with vertical head movement. Pt believes her dizziness is the reason of her fall. 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 Prior Treatments and Tests Ongoing cancer medical treatment since 10/2017. Ongoing left arm blood clots treatment. Future Testing and Treatments Planned Ongoing cancer medical treatment since 10/2017. Ongoing left arm blood clots treatment. Treatment Goals Patient/Caregiver Goals Patient wants to improve general body strength to prevent falls, improve endurance. Prior Functional Status Baseline Function- ADL's Independent Baseline Function- Mobility Independent Current Functional Impairments (Reported) Functional Limitations- ADL's Indep with moderate difficulty due to low endurance and weakness Functional Limitations- Mobility/Gait Gait intability that requires cane for out side amb Functional Limitations- Other Diffficulty of climbing stairs at home with total 19 steps Personal Factors Other Personal Factors That May Effect Current problems: Ongoing Therapy/Recovery cancer treatment, depression, multiple falls, Dizziness, sligt memory loss, vision problem. PT-OP-C Subjective Start: 06/09/18 15:24 Freq: Status: Active Protocol: Document 06/16/18 10:33 EA (Rec: 06/16/18 11:16 EA [id number]) OP-PT Subjective Patient Comments Patient Comments Pt reports had emises last session;states it might be from drinking too much water. Patient also report she will be having treatment for dehydration after today's treatment. Patient Reported Progress Same PT-OP-D Balance Start: 06/09/18 15:24 Freq: Status: Active Protocol: Document 06/09/18 15:27 EA (Rec: 06/09/18 15:47 EA [id number]) OP-PT Balance Assessment Standing Balance Static Standing Balance Ability Normal Dynamic Standing Balance Ability Good Balance Tests Functional Reach Functional Reach Impairment Rating 1 to <20% Impaired (Score 9) Single Limb Standing Single Limb- Right <3 secs Single Limb- Left < 3 secs Tandem Tandem Standing < 5 sec Lopez Fall Scale Copyright Permission John RUANO, John RM, Teto SJ. Development of a scale to identify the fall- prone patient. Can J Aging 1989;8;366-7. Navneet Lopez (2009). Preventing patient falls. (2nd ed). [place]: Salcedo. PT-OP-E Functional Tests Start: 06/09/18 15:24 Freq: Status: Active Protocol: Document 06/09/18 15:27 EA (Rec: 06/09/18 16:16 EA [id number]) Functional Tests Dynamic Gait Index (DGI) DGI Impairment Rating 20 to <40% Impaired (Score 15- 19) PT-OP-H Neuro Start: 06/09/18 15:24 Freq: Status: Active Protocol: Document 06/09/18 15:27 EA (Rec: 06/09/18 16:16 EA [id number]) Coordination Evaluation Upper Extremity Tests Left Finger to Nose Test Normal Performance Finger to Therapist's Finger Test Normal Performance Pronation/Supination Test Normal Performance Right Finger to Nose Test Normal Performance Finger to Therapist's Finger Test Normal Performance Finger to Finger Test Normal Performance Lower Extremity Tests Left Alternate Heel to Knee; Heel to Toe Test Normal Performance Heel on [place] Test Normal Performance Right Alternate Heel to Knee; Heel to Toe Test Normal Performance Heel on [place] Test Normal Performance Deep Tendon Reflex & Clonus Assessment Deep Tendon Reflex Patellar Deep Tendon Reflex 2+ Normal Vital Signs Blood Pressure Standing Blood Pressure (90/60-120/80 mmHg) 90/70 Blood Pressure Source Manual Cuff Right Upper Extremity Sitting Blood Pressure (90/60-120/80 mmHg) 130/70 H Blood Pressure Source Manual Cuff Right Upper Extremity Comments Vital Signs Comments Blood pressure drops more 20 mmHg from sitting to abrupt standing: Patient dizzines could be realted to Orthostatic hypotension PT-OP-M Strength Start: 06/09/18 15:24 Freq: Status: Active Protocol: Document 06/09/18 15:27 EA (Rec: 06/09/18 16:16 EA [id number]) Trunk Strength Trunk Manual Muscle Testing Flexion 3+ Fair+ Extension 3+ Fair+ Rotation Left 4- Good- Rotation Right 4- Good- Lateral Flexion Left 4- Good- Lateral Flexion Right 4- Good- Shoulder Strength Shoulder Manual Muscle Testing Left Comments Both UE's major muscle group grossly graded 4/5 Hip Strength Hip Manual Muscle Testing Left Comments Both LE major muscle group grossly graded 4/5 Right Comments Both LE's shirlene muscle group grossly graded 4/5 PT-OP-Q Treatments Start: 06/09/18 15:24 Freq: Status: Active Protocol: Document 06/16/18 10:33 EA (Rec: 06/16/18 11:16 EA [id number]) Cardio Equipment Recumbent Stepper ([employer]) Duration (Minutes) 6 Resistance 1.5 Seat Position 13 Gym Equipment Cable Column (Body Solid) Rows Resistance x 2-3plates Reps/Time x 15 reps Leg Extension Resistance 2-3 plates Reps/Time x 15 reps x 2 Lat Pull Down Resistance 2 plates Reps/Time x 15 reps Hip Adduction Resistance 1-2 plates Reps/Time 15 reps x 2 Hip Abduction Resistance 1-2 plates Reps/Time x 15 x 2sets Shuttle Recovery Bilateral Squats Resistance 2 cords Reps/Time 15 reps x 1 Therapeutic Exercises Standing Exercises 2 Standing Exercise Name sit to stand with head turing Reps/Minutes x 10 reps x 2 Neuro Re-Education Treatment Balance Activities 2 Details Shuttle balance: NBOS/ stagarred stance 1 Details SLS, tandem stand, tiltboard fwd/bck and side to side bal and wt shift, Equipment parallel bars for UE support PRN Reps/Duration 15 min Comments also stand with EC PT-OP-T Assessment and Plan Start: 06/09/18 15:24 Freq: Status: Active Protocol: Document 06/16/18 10:33 EA (Rec: 06/16/18 11:16 EA [id number]) Physical Therapy Assessment Assessment Summary Assessment Patient tolerated treatment well. No episodes of nauseated feeling. Patient requires cues during exercises. Physical Therapy Plan Next Visit Focus/Plan Next Visit Plan Cont with current plan.
--- NOTE | 2018-06-21 10:36 | PT.OTN ---
Current Diagnoses Weakness (06/21/18) Physical Therapy Treatment Note PT-OP-A Visit Information Start: 06/09/18 15:24 Freq: Status: Active Protocol: Document 06/21/18 09:54 EA (Rec: 06/21/18 10:33 EA [id number]) Out-Patient Physical Therapy Visit Information Visit Information Visit Type Treatment Note Visit Start Time 09:45 Visit Stop Time 10:30 Total Visit Minutes 40 Visit Number 4 Number of [employer] AND FORMER Visits 0 PT-OP-B Current Condition Start: 06/09/18 15:24 Freq: Status: Active Protocol: Document 06/09/18 15:27 EA (Rec: 06/09/18 15:47 EA [id number]) Current Condition History of Current Condition Onset Date 7 months ago Current Complaints General body weakness, balance and gait instability, multiple falls History of Current Condition Patient reports present condition started right after head surgery and cancer medical treatment. Patient states multiple falls usually happens when she abruptly stood up from sitting and as well when she is standing up with vertical head movement. Pt believes her dizziness is the reason of her fall. 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 Prior Treatments and Tests Ongoing cancer medical treatment since 10/2017. Ongoing left arm blood clots treatment. Future Testing and Treatments Planned Ongoing cancer medical treatment since 10/2017. Ongoing left arm blood clots treatment. Treatment Goals Patient/Caregiver Goals Patient wants to improve general body strength to prevent falls, improve endurance. Prior Functional Status Baseline Function- ADL's Independent Baseline Function- Mobility Independent Current Functional Impairments (Reported) Functional Limitations- ADL's Indep with moderate difficulty due to low endurance and weakness Functional Limitations- Mobility/Gait Gait intability that requires cane for out side amb Functional Limitations- Other Diffficulty of climbing stairs at home with total 19 steps Personal Factors Other Personal Factors That May Effect Current problems: Ongoing Therapy/Recovery cancer treatment, depression, multiple falls, Dizziness, sligt memory loss, vision problem. PT-OP-C Subjective Start: 06/09/18 15:24 Freq: Status: Active Protocol: Document 06/21/18 09:54 EA (Rec: 06/21/18 10:33 EA [id number]) OP-PT Subjective Patient Comments Patient Comments Pt reports general body sores after 2 days after last session; states she is much feeling better at this time. PT-OP-D Balance Start: 06/09/18 15:24 Freq: Status: Active Protocol: Document 06/09/18 15:27 EA (Rec: 06/09/18 15:47 EA [id number]) OP-PT Balance Assessment Standing Balance Static Standing Balance Ability Normal Dynamic Standing Balance Ability Good Balance Tests Functional Reach Functional Reach Impairment Rating 1 to <20% Impaired (Score 9) Single Limb Standing Single Limb- Right <3 secs Single Limb- Left < 3 secs Tandem Tandem Standing < 5 sec Lopez Fall Scale Copyright Permission John RUANO, John RM, Teto SJ. Development of a scale to identify the fall- prone patient. Can J Aging 1989;8;366-7. Navneet Lopez (2009). Preventing patient falls. (2nd ed). [place]: Salcedo. PT-OP-E Functional Tests Start: 06/09/18 15:24 Freq: Status: Active Protocol: Document 06/09/18 15:27 EA (Rec: 06/09/18 16:16 EA [id number]) Functional Tests Dynamic Gait Index (DGI) DGI Impairment Rating 20 to <40% Impaired (Score 15- 19) PT-OP-H Neuro Start: 06/09/18 15:24 Freq: Status: Active Protocol: Document 06/09/18 15:27 EA (Rec: 06/09/18 16:16 EA [id number]) Coordination Evaluation Upper Extremity Tests Left Finger to Nose Test Normal Performance Finger to Therapist's Finger Test Normal Performance Pronation/Supination Test Normal Performance Right Finger to Nose Test Normal Performance Finger to Therapist's Finger Test Normal Performance Finger to Finger Test Normal Performance Lower Extremity Tests Left Alternate Heel to Knee; Heel to Toe Test Normal Performance Heel on [place] Test Normal Performance Right Alternate Heel to Knee; Heel to Toe Test Normal Performance Heel on [place] Test Normal Performance Deep Tendon Reflex & Clonus Assessment Deep Tendon Reflex Patellar Deep Tendon Reflex 2+ Normal Vital Signs Blood Pressure Standing Blood Pressure (90/60-120/80 mmHg) 90/70 Blood Pressure Source Manual Cuff Right Upper Extremity Sitting Blood Pressure (90/60-120/80 mmHg) 130/70 H Blood Pressure Source Manual Cuff Right Upper Extremity Comments Vital Signs Comments Blood pressure drops more 20 mmHg from sitting to abrupt standing: Patient dizzines could be realted to Orthostatic hypotension PT-OP-M Strength Start: 06/09/18 15:24 Freq: Status: Active Protocol: Document 06/09/18 15:27 EA (Rec: 06/09/18 16:16 EA [id number]) Trunk Strength Trunk Manual Muscle Testing Flexion 3+ Fair+ Extension 3+ Fair+ Rotation Left 4- Good- Rotation Right 4- Good- Lateral Flexion Left 4- Good- Lateral Flexion Right 4- Good- Shoulder Strength Shoulder Manual Muscle Testing Left Comments Both UE's major muscle group grossly graded 4/5 Hip Strength Hip Manual Muscle Testing Left Comments Both LE major muscle group grossly graded 4/5 Right Comments Both LE's shirlene muscle group grossly graded 4/5 PT-OP-Q Treatments Start: 06/09/18 15:24 Freq: Status: Active Protocol: Document 06/21/18 09:54 EA (Rec: 06/21/18 10:33 EA [id number]) Cardio Equipment Recumbent Bicycle Duration (Minutes) 10 Resistance 4 Seat Position 5 Other Somewhat hard RPE Gym Equipment Cable Column (Body Solid) Rows Resistance x 2-3plates Reps/Time x 15 reps Leg Extension Resistance 2-3 plates Reps/Time x 15 reps x 2 Lat Pull Down Resistance 2 plates Reps/Time x 15 reps Hip Adduction Resistance 1-2 plates Reps/Time 15 reps x 2 Hip Abduction Resistance 1-2 plates Reps/Time x 15 x 2sets Shuttle Recovery Bilateral Squats Resistance 2 cords Reps/Time 15 reps x 1 Therapeutic Exercises Standing Exercises 2 Standing Exercise Name sit to stand with head turing Reps/Minutes x 10 reps x 2 Neuro Re-Education Treatment Balance Activities 2 Details Shuttle balance: NBOS/ staggared stance 1 Details SLS, tandem stand, tiltboard fwd/bck and side to side bal and wt shift, Equipment parallel bars for UE support PRN Reps/Duration 15 min Comments also stand with EC PT-OP-T Assessment and Plan Start: 06/09/18 15:24 Freq: Status: Active Protocol: Document 06/21/18 09:54 EA (Rec: 06/21/18 10:33 EA [id number]) Physical Therapy Assessment Assessment Summary Assessment Patient tolerated treatment well. Cont with current plan Physical Therapy Plan Next Visit Focus/Plan Next Note Type Treatment Note Next Visit Plan Cont with the plan
--- NOTE | 2018-06-23 11:15 | PT.OTN ---
Current Diagnoses Weakness (06/23/18) Physical Therapy Treatment Note PT-OP-A Visit Information Start: 06/09/18 15:24 Freq: Status: Active Protocol: Document 06/23/18 10:39 EA (Rec: 06/23/18 11:14 EA [id number]) Out-Patient Physical Therapy Visit Information Visit Information Visit Type Treatment Note Visit Start Time 10:30 Visit Stop Time 11:15 Total Visit Minutes 40 Visit Number 4 Number of UNDERCOLLAR BASTER Visits 0 PT-OP-B Current Condition Start: 06/09/18 15:24 Freq: Status: Active Protocol: Document 06/09/18 15:27 EA (Rec: 06/09/18 15:47 EA [id number]) Current Condition History of Current Condition Onset Date 7 months ago Current Complaints General body weakness, balance and gait instability, multiple falls History of Current Condition Patient reports present condition started right after head surgery and cancer medical treatment. Patient states multiple falls usually happens when she abruptly stood up from sitting and as well when she is standing up with vertical head movement. Pt believes her dizziness is the reason of her fall. 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 Prior Treatments and Tests Ongoing cancer medical treatment since 10/2017. Ongoing left arm blood clots treatment. Future Testing and Treatments Planned Ongoing cancer medical treatment since 10/2017. Ongoing left arm blood clots treatment. Treatment Goals Patient/Caregiver Goals Patient wants to improve general body strength to prevent falls, improve endurance. Prior Functional Status Baseline Function- ADL's Independent Baseline Function- Mobility Independent Current Functional Impairments (Reported) Functional Limitations- ADL's Indep with moderate difficulty due to low endurance and weakness Functional Limitations- Mobility/Gait Gait intability that requires cane for out side amb Functional Limitations- Other Diffficulty of climbing stairs at home with total 19 steps Personal Factors Other Personal Factors That May Effect Current problems: Ongoing Therapy/Recovery cancer treatment, depression, multiple falls, Dizziness, sligt memory loss, vision problem. PT-OP-C Subjective Start: 06/09/18 15:24 Freq: Status: Active Protocol: Document 06/23/18 10:39 EA (Rec: 06/23/18 11:14 EA [id number]) OP-PT Subjective Patient Comments Patient Comments Pt reports able to wlak a bit more distance at this time; states instability is quite less also. Patient requested to have more visits as she feels it helping her. PT-OP-D Balance Start: 06/09/18 15:24 Freq: Status: Active Protocol: Document 06/09/18 15:27 EA (Rec: 06/09/18 15:47 EA [id number]) OP-PT Balance Assessment Standing Balance Static Standing Balance Ability Normal Dynamic Standing Balance Ability Good Balance Tests Functional Reach Functional Reach Impairment Rating 1 to <20% Impaired (Score 9) Single Limb Standing Single Limb- Right <3 secs Single Limb- Left < 3 secs Tandem Tandem Standing < 5 sec Lopez Fall Scale Copyright Permission John JM, John RM, Teto SJ. Development of a scale to identify the fall- prone patient. Can J Aging 1989;8;366-7. Navneet Lopez (2009). Preventing patient falls. (2nd ed). [place]: [place]. PT-OP-E Functional Tests Start: 06/09/18 15:24 Freq: Status: Active Protocol: Document 06/09/18 15:27 EA (Rec: 06/09/18 16:16 EA [id number]) Functional Tests Dynamic Gait Index (DGI) DGI Impairment Rating 20 to <40% Impaired (Score 15- 19) PT-OP-H Neuro Start: 06/09/18 15:24 Freq: Status: Active Protocol: Document 06/09/18 15:27 EA (Rec: 06/09/18 16:16 EA [id number]) Coordination Evaluation Upper Extremity Tests Left Finger to Nose Test Normal Performance Finger to Therapist's Finger Test Normal Performance Pronation/Supination Test Normal Performance Right Finger to Nose Test Normal Performance Finger to Therapist's Finger Test Normal Performance Finger to Finger Test Normal Performance Lower Extremity Tests Left Alternate Heel to Knee; Heel to Toe Test Normal Performance Heel on [place]fall Test Normal Performance Right Alternate Heel to Knee; Heel to Toe Test Normal Performance Heel on [place] Test Normal Performance Deep Tendon Reflex & Clonus Assessment Deep Tendon Reflex Patellar Deep Tendon Reflex 2+ Normal Vital Signs Blood Pressure Standing Blood Pressure (90/60-120/80 mmHg) 90/70 Blood Pressure Source Manual Cuff Right Upper Extremity Sitting Blood Pressure (90/60-120/80 mmHg) 130/70 H Blood Pressure Source Manual Cuff Right Upper Extremity Comments Vital Signs Comments Blood pressure drops more 20 mmHg from sitting to abrupt standing: Patient dizzines could be realted to Orthostatic hypotension PT-OP-M Strength Start: 06/09/18 15:24 Freq: Status: Active Protocol: Document 06/09/18 15:27 EA (Rec: 06/09/18 16:16 EA [id number]) Trunk Strength Trunk Manual Muscle Testing Flexion 3+ Fair+ Extension 3+ Fair+ Rotation Left 4- Good- Rotation Right 4- Good- Lateral Flexion Left 4- Good- Lateral Flexion Right 4- Good- Shoulder Strength Shoulder Manual Muscle Testing Left Comments Both UE's major muscle group grossly graded 4/5 Hip Strength Hip Manual Muscle Testing Left Comments Both LE major muscle group grossly graded 4/5 Right Comments Both LE's shirlene muscle group grossly graded 4/5 PT-OP-Q Treatments Start: 06/09/18 15:24 Freq: Status: Active Protocol: Document 06/23/18 10:39 EA (Rec: 06/23/18 11:14 EA [id number]) Cardio Equipment Recumbent Bicycle Duration (Minutes) 10 Resistance 4 Seat Position 5 Other Somewhat hard RPE Gym Equipment Cable Column (Body Solid) Rows Resistance x 2-3plates Reps/Time x 15 reps Leg Extension Resistance 2-3 plates Reps/Time x 15 reps x 2 Lat Pull Down Resistance 2 plates Reps/Time x 15 reps Hip Adduction Resistance 1-2 plates Reps/Time 15 reps x 2 Hip Abduction Resistance 1-2 plates Reps/Time x 15 x 2sets Therapeutic Exercises Standing Exercises 2 Standing Exercise Name sit to stand with head turning Reps/Minutes x 10 reps x 2 1 Standing Exercise Name heel raise, march, backward walk, sidestep, squat Side bilateral Reps/Minutes 10x ea Neuro Re-Education Treatment Balance Activities 2 Details Shuttle balance: NBOS/ stagarred stance PT-OP-T Assessment and Plan Start: 06/09/18 15:24 Freq: Status: Active Protocol: Document 06/23/18 10:39 EA (Rec: 06/23/18 11:14 EA [id number]) Physical Therapy Assessment Assessment Summary Assessment Patient has improved endurance today. cont. with current plan. Physical Therapy Plan Next Visit Focus/Plan Next Visit Plan Cont with current plan.
--- NOTE | 2018-06-28 12:12 | PT.OTN ---
Current Diagnoses Weakness (06/28/18) Physical Therapy Treatment Note PT-OP-A Visit Information Start: 06/09/18 15:24 Freq: Status: Active Protocol: Document 06/28/18 09:54 EA (Rec: 06/28/18 10:28 EA [id number]) Out-Patient Physical Therapy Visit Information Visit Information Visit Type Treatment Note Visit Start Time 09:45 Visit Stop Time 10:30 Total Visit Minutes 40 Visit Number 6 Number of TRACK MECHANIC Visits 0 PT-OP-B Current Condition Start: 06/09/18 15:24 Freq: Status: Active Protocol: Document 06/09/18 15:27 EA (Rec: 06/09/18 15:47 EA [id number]) Current Condition History of Current Condition Onset Date 7 months ago Current Complaints General body weakness, balance and gait instability, multiple falls History of Current Condition Patient reports present condition started right after head surgery and cancer medical treatment. Patient states multiple falls usually happens when she abruptly stood up from sitting and as well when she is standing up with vertical head movement. Pt believes her dizziness is the reason of her fall. 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 Prior Treatments and Tests Ongoing cancer medical treatment since 10/2017. Ongoing left arm blood clots treatment. Future Testing and Treatments Planned Ongoing cancer medical treatment since 10/2017. Ongoing left arm blood clots treatment. Treatment Goals Patient/Caregiver Goals Patient wants to improve general body strength to prevent falls, improve endurance. Prior Functional Status Baseline Function- ADL's Independent Baseline Function- Mobility Independent Current Functional Impairments (Reported) Functional Limitations- ADL's Indep with moderate difficulty due to low endurance and weakness Functional Limitations- Mobility/Gait Gait intability that requires cane for out side amb Functional Limitations- Other Diffficulty of climbing stairs at home with total 19 steps Personal Factors Other Personal Factors That May Effect Current problems: Ongoing Therapy/Recovery cancer treatment, depression, multiple falls, Dizziness, sligt memory loss, vision problem. PT-OP-C Subjective Start: 06/09/18 15:24 Freq: Status: Active Protocol: Document 06/28/18 09:54 EA (Rec: 06/28/18 10:28 EA [id number]) OP-PT Subjective Patient Comments Patient Comments Pty reports no fatigue but a little tired; states no falls in the past. Reports initial standing dizziness is less frequent at this time. Denies fall in the past. PT-OP-D Balance Start: 06/09/18 15:24 Freq: Status: Active Protocol: Document 06/09/18 15:27 EA (Rec: 06/09/18 15:47 EA [id number]) OP-PT Balance Assessment Standing Balance Static Standing Balance Ability Normal Dynamic Standing Balance Ability Good Balance Tests Functional Reach Functional Reach Impairment Rating 1 to <20% Impaired (Score 9) Single Limb Standing Single Limb- Right <3 secs Single Limb- Left < 3 secs Tandem Tandem Standing < 5 sec Lopez Fall Scale Copyright Permission John RUANO, John RM, Teto SJ. Development of a scale to identify the fall- prone patient. Can J Aging 1989;8;366-7. Navneet Lopez (2009). Preventing patient falls. (2nd ed). [place]: [place]. PT-OP-E Functional Tests Start: 06/09/18 15:24 Freq: Status: Active Protocol: Document 06/09/18 15:27 EA (Rec: 06/09/18 16:16 EA [id number]) Functional Tests Dynamic Gait Index (DGI) DGI Impairment Rating 20 to <40% Impaired (Score 15- 19) PT-OP-H Neuro Start: 06/09/18 15:24 Freq: Status: Active Protocol: Document 06/09/18 15:27 EA (Rec: 06/09/18 16:16 EA [id number]) Coordination Evaluation Upper Extremity Tests Left Finger to Nose Test Normal Performance Finger to Therapist's Finger Test Normal Performance Pronation/Supination Test Normal Performance Right Finger to Nose Test Normal Performance Finger to Therapist's Finger Test Normal Performance Finger to Finger Test Normal Performance Lower Extremity Tests Left Alternate Heel to Knee; Heel to Toe Test Normal Performance Heel on [place] Test Normal Performance Right Alternate Heel to Knee; Heel to Toe Test Normal Performance Heel on [place] Test Normal Performance Deep Tendon Reflex & Clonus Assessment Deep Tendon Reflex Patellar Deep Tendon Reflex 2+ Normal Vital Signs Blood Pressure Standing Blood Pressure (90/60-120/80 mmHg) 90/70 Blood Pressure Source Manual Cuff Right Upper Extremity Sitting Blood Pressure (90/60-120/80 mmHg) 130/70 H Blood Pressure Source Manual Cuff Right Upper Extremity Comments Vital Signs Comments Blood pressure drops more 20 mmHg from sitting to abrupt standing: Patient dizzines could be realted to Orthostatic hypotension PT-OP-M Strength Start: 06/09/18 15:24 Freq: Status: Active Protocol: Document 06/09/18 15:27 EA (Rec: 06/09/18 16:16 EA [id number]) Trunk Strength Trunk Manual Muscle Testing Flexion 3+ Fair+ Extension 3+ Fair+ Rotation Left 4- Good- Rotation Right 4- Good- Lateral Flexion Left 4- Good- Lateral Flexion Right 4- Good- Shoulder Strength Shoulder Manual Muscle Testing Left Comments Both UE's major muscle group grossly graded 4/5 Hip Strength Hip Manual Muscle Testing Left Comments Both LE major muscle group grossly graded 4/5 Right Comments Both LE's shirlene muscle group grossly graded 4/5 PT-OP-Q Treatments Start: 06/09/18 15:24 Freq: Status: Active Protocol: Document 06/28/18 09:54 EA (Rec: 06/28/18 10:28 EA [id number]) Cardio Equipment Recumbent Bicycle Duration (Minutes) 10 Resistance 4 Seat Position 5 Other Somewhat hard RPE Gym Equipment Cable Column (Body Solid) Leg Extension Resistance 2-3 plates Reps/Time x 15 reps x 2 Lat Pull Down Resistance 2 plates Reps/Time x 15 reps Hip Adduction Resistance 1-2 plates Reps/Time 15 reps x 2 Shuttle Recovery Bilateral Squats Resistance 2 cords Reps/Time 15 reps x 1 Therapeutic Exercises Standing Exercises 2 Standing Exercise Name sit to stand with head turing Reps/Minutes x 10 reps x 2 Neuro Re-Education Treatment Balance Activities 2 Details Shuttle balance: NBOS/ stagarred stance PT-OP-T Assessment and Plan Start: 06/09/18 15:24 Freq: Status: Active Protocol: Document 06/28/18 09:54 EA (Rec: 06/28/18 10:28 EA [id number]) Physical Therapy Assessment Assessment Summary Assessment Tolerated treatment well; requires cues during side step squat as patient tends to bend on the spine. BP taken from seating to abrupt quick standing and 20mmHG dropped noted. Advised patient to stand still or waiting before walking when abrupt standing is made. Physical Therapy Plan Next Visit Focus/Plan Next Note Type Treatment Note Next Visit Plan Progress as tolerated.
--- NOTE | 2018-07-07 14:25 | PT.OTN ---
Current Diagnoses Weakness (07/07/18) Physical Therapy Treatment Note PT-OP-A Visit Information Start: 06/09/18 15:24 Freq: Status: Active Protocol: Document 07/07/18 10:42 EA (Rec: 07/07/18 11:12 EA [id number]) Out-Patient Physical Therapy Visit Information Visit Information Visit Type Treatment Note Visit Start Time 10:30 Visit Stop Time 11:15 Total Visit Minutes 40 Visit Number 7 Number of FISH FARMER Visits 0 PT-OP-B Current Condition Start: 06/09/18 15:24 Freq: Status: Active Protocol: Document 06/09/18 15:27 EA (Rec: 06/09/18 15:47 EA [id number]) Current Condition History of Current Condition Onset Date 7 months ago Current Complaints General body weakness, balance and gait instability, multiple falls History of Current Condition Patient reports present condition started right after head surgery and cancer medical treatment. Patient states multiple falls usually happens when she abruptly stood up from sitting and as well when she is standing up with vertical head movement. Pt believes her dizziness is the reason of her fall. 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 Prior Treatments and Tests Ongoing cancer medical treatment since 10/2017. Ongoing left arm blood clots treatment. Future Testing and Treatments Planned Ongoing cancer medical treatment since 10/2017. Ongoing left arm blood clots treatment. Treatment Goals Patient/Caregiver Goals Patient wants to improve general body strength to prevent falls, improve endurance. Prior Functional Status Baseline Function- ADL's Independent Baseline Function- Mobility Independent Current Functional Impairments (Reported) Functional Limitations- ADL's Indep with moderate difficulty due to low endurance and weakness Functional Limitations- Mobility/Gait Gait intability that requires cane for out side amb Functional Limitations- Other Diffficulty of climbing stairs at home with total 19 steps Personal Factors Other Personal Factors That May Effect Current problems: Ongoing Therapy/Recovery cancer treatment, depression, multiple falls, Dizziness, sligt memory loss, vision problem. PT-OP-C Subjective Start: 06/09/18 15:24 Freq: Status: Active Protocol: Document 07/07/18 10:42 EA (Rec: 07/07/18 11:12 EA [id number]) OP-PT Subjective Patient Comments Patient Comments Pt reports unable to come last session sched due to LBM. Pt reports quite a bit dehydrated today. PT-OP-D Balance Start: 06/09/18 15:24 Freq: Status: Active Protocol: Document 06/09/18 15:27 EA (Rec: 06/09/18 15:47 EA [id number]) OP-PT Balance Assessment Standing Balance Static Standing Balance Ability Normal Dynamic Standing Balance Ability Good Balance Tests Functional Reach Functional Reach Impairment Rating 1 to <20% Impaired (Score 9) Single Limb Standing Single Limb- Right <3 secs Single Limb- Left < 3 secs Tandem Tandem Standing < 5 sec Lopez Fall Scale Copyright Permission John RUANO, John RM, [place] S[place]. Development of a scale to identify the fall- prone patient. Can J Aging 1989;8;366-7. Navneet Lopez (2009). Preventing patient falls. (2nd ed). [place]: [place]. PT-OP-E Functional Tests Start: 06/09/18 15:24 Freq: Status: Active Protocol: Document 06/09/18 15:27 EA (Rec: 06/09/18 16:16 EA [id number]) Functional Tests Dynamic Gait Index (DGI) DGI Impairment Rating 20 to <40% Impaired (Score 15- 19) PT-OP-H Neuro Start: 06/09/18 15:24 Freq: Status: Active Protocol: Document 06/09/18 15:27 EA (Rec: 06/09/18 16:16 EA [id number]) Coordination Evaluation Upper Extremity Tests Left Finger to Nose Test Normal Performance Finger to Therapist's Finger Test Normal Performance Pronation/Supination Test Normal Performance Right Finger to Nose Test Normal Performance Finger to Therapist's Finger Test Normal Performance Finger to Finger Test Normal Performance Lower Extremity Tests Left Alternate Heel to Knee; Heel to Toe Test Normal Performance Heel on Westfall Test Normal Performance Right Alternate Heel to Knee; Heel to Toe Test Normal Performance Heel on Westfall Test Normal Performance Deep Tendon Reflex & Clonus Assessment Deep Tendon Reflex Patellar Deep Tendon Reflex 2+ Normal Vital Signs Blood Pressure Standing Blood Pressure (90/60-120/80 mmHg) 90/70 Blood Pressure Source Manual Cuff Right Upper Extremity Sitting Blood Pressure (90/60-120/80 mmHg) 130/70 H Blood Pressure Source Manual Cuff Right Upper Extremity Comments Vital Signs Comments Blood pressure drops more 20 mmHg from sitting to abrupt standing: Patient dizzines could be realted to Orthostatic hypotension PT-OP-M Strength Start: 06/09/18 15:24 Freq: Status: Active Protocol: Document 06/09/18 15:27 EA (Rec: 06/09/18 16:16 EA [id number]) Trunk Strength Trunk Manual Muscle Testing Flexion 3+ Fair+ Extension 3+ Fair+ Rotation Left 4- Good- Rotation Right 4- Good- Lateral Flexion Left 4- Good- Lateral Flexion Right 4- Good- Shoulder Strength Shoulder Manual Muscle Testing Left Comments Both UE's major muscle group grossly graded 4/5 Hip Strength Hip Manual Muscle Testing Left Comments Both LE major muscle group grossly graded 4/5 Right Comments Both LE's shirlene muscle group grossly graded 4/5 PT-OP-Q Treatments Start: 06/09/18 15:24 Freq: Status: Active Protocol: Document 07/07/18 10:42 EA (Rec: 07/07/18 11:12 EA [id number]) Cardio Equipment Recumbent Bicycle Duration (Minutes) 12 Resistance 3 Seat Position 5 Other Somewhat hard RPE Gym Equipment Cable Column (Body Solid) Leg Extension Resistance 2plates Reps/Time x 15 reps x 2 Hip Adduction Resistance 1-2 plates Reps/Time 15 reps x 2 Hip Abduction Resistance 1-2 plates Reps/Time x 15 x 2sets Shuttle Recovery Bilateral Squats Resistance 2 cords Reps/Time 15 reps x 2 Therapeutic Exercises Standing Exercises 2 Standing Exercise Name sit to stand with head turing Reps/Minutes x 10 reps x 2 Neuro Re-Education Treatment Balance Activities 2 Details Shuttle balance: NBOS/ stagarred stance PT-OP-T Assessment and Plan Start: 06/09/18 15:24 Freq: Status: Active Protocol: Document 07/07/18 12:11 EA (Rec: 07/07/18 12:12 EA [id number]) Physical Therapy Assessment Assessment Summary Assessment Patient requires frequent rest at this time due to SOB and fatigue,. Exercises were tolerated well. Recommends patient to cancel appointment if she feels fatigue prior to next schedule. Physical Therapy Plan Next Visit Focus/Plan Next Note Type Treatment Note Next Visit Plan Progress as tolerated.
--- NOTE | 2018-07-08 15:25 | PC.NURSE ---
Tried call pt to leave msg regarding dose change on her warfarin but her mailbox was full. After several attempts I called her DTR and gave the dosing information to her. New dose as follows: 5mg // then 6mg //sat/sun. Rx called [facility] 5mg tabs #60 and 1 mg tabs #30 to cover this and any other dose adjustments needed in the future
[2018-07-28 16:14] VITALS: BP 130/70; BP 90/70
--- NOTE | 2018-07-28 16:35 | PT.OTRE ---
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) Weakness of left lower extremity (Chronic 11/25/17) Non-small cell carcinoma of lung (Chronic 02/11/18) Anxiety (Acute) Chronic back pain (Acute) Depression (Acute) Dyspnea (Acute) History of anemia (Acute) History of headache (Acute) Hypertension (Acute) Hypothyroidism (Acute) Peripheral vision loss (Acute) Port-a-cath in place (Acute) Postmenopausal (Acute) Recurrent sinusitis (Acute) Thrombus (Acute) Worsening headaches (Acute) Hyperlipidemia (Chronic) Chicken pox (Resolved) Measles (Resolved) Surgical History (Last Reviewed 07/15/18 @ 11:27 by Nava Sutherland LPN) Status post tubal ligation Provider Visit Care Team Role Provider Type Dank Leong MD Attending Provider Physician Primary Care Provider Specialty: Family Practice Address: [address] [place] [address], [facility] Email: [email or web address] Physical Therapy Re-Evaluation PT-OP-A Visit Information Start: 06/09/18 15:24 Freq: Status: Active Protocol: Document 07/28/18 16:14 EA (Rec: 07/28/18 16:35 EA [id number]) Out-Patient Physical Therapy Visit Information Visit Information Visit Type Treatment Note Visit Start Time 10:30 Visit Stop Time 11:15 Total Visit Minutes 40 Visit Number 8 Number of WEB DEVELOPMENT INTERN Visits 0 PT-OP-B Current Condition Start: 06/09/18 15:24 Freq: Status: Active Protocol: Document 07/28/18 16:14 EA (Rec: 07/28/18 16:35 EA [id number]) Current Condition History of Current Condition Onset Date 7 months ago Current Complaints General body weakness, balance and gait instability, multiple falls History of Current Condition Patient reports present condition started right after head surgery and cancer medical treatment. Patient states multiple falls usually happens when she abruptly stood up from sitting and as well when she is standing up with vertical head movement. Pt believes her dizziness is the reason of her fall. 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 Prior Treatments and Tests Ongoing cancer medical treatment since 10/2017. Ongoing left arm blood clots treatment. Future Testing and Treatments Planned Ongoing cancer medical treatment since 10/2017. Ongoing left arm blood clots treatment. Treatment Goals Patient/Caregiver Goals Patient wants to improve general body strength to prevent falls, improve endurance. Prior Functional Status Baseline Function- ADL's Independent Baseline Function- Mobility Independent Current Functional Impairments (Reported) Functional Limitations- ADL's Indep with moderate difficulty due to low endurance and weakness Functional Limitations- Mobility/Gait Gait intability that requires cane for out side amb Functional Limitations- Other Diffficulty of climbing stairs at home with total 19 steps Personal Factors Other Personal Factors That May Effect Current problems: Ongoing Therapy/Recovery cancer treatment, depression, multiple falls, Dizziness, sligt memory loss, vision problem. PT-OP-C Subjective Start: 06/09/18 15:24 Freq: Status: Active Protocol: Document 07/28/18 16:14 EA (Rec: 07/28/18 16:35 EA [id number]) OP-PT Subjective Patient Comments Patient Comments Patient reports she has been sikck in thepast weeks due to dehydration; states that she feels her strength and endurance was quite less and feel dehydration is the reason . PT-OP-D Balance Start: 06/09/18 15:24 Freq: Status: Active Protocol: Document 07/28/18 16:14 EA (Rec: 07/28/18 16:35 EA [id number]) OP-PT Balance Assessment Standing Balance Static Standing Balance Ability Normal Dynamic Standing Balance Ability Good Balance Tests Functional Reach Functional Reach Impairment Rating 1 to <20% Impaired (Score 9) Single Limb Standing Single Limb- Right <3 secs Single Limb- Left < 3 secs Tandem Tandem Standing < 5 sec Lopez Fall Scale Copyright Permission John RUANO, John RM, [place] SJ. Development of a scale to identify the fall- prone patient. Can J Aging 1989;8;366-7. Navneet Lopez (2009). Preventing patient falls. (2nd ed). [place]: [place]. PT-OP-E Functional Tests Start: 06/09/18 15:24 Freq: Status: Active Protocol: Document 07/28/18 16:14 EA (Rec: 07/28/18 16:35 EA [id number]) Functional Tests Dynamic Gait Index (DGI) DGI Impairment Rating 20 to <40% Impaired (Score 15- 19) PT-OP-H Neuro Start: 06/09/18 15:24 Freq: Status: Active Protocol: Document 07/28/18 16:14 EA (Rec: 07/28/18 16:35 EA [id number]) Coordination Evaluation Upper Extremity Tests Left Finger to Nose Test Normal Performance Finger to Therapist's Finger Test Normal Performance Pronation/Supination Test Normal Performance Right Finger to Nose Test Normal Performance Finger to Therapist's Finger Test Normal Performance Finger to Finger Test Normal Performance Lower Extremity Tests Left Alternate Heel to Knee; Heel to Toe Test Normal Performance Heel on [place]fall Test Normal Performance Right Alternate Heel to Knee; Heel to Toe Test Normal Performance Heel on [place]fall Test Normal Performance Vital Signs Blood Pressure Standing Blood Pressure (90/60-120/80 mmHg) 90/70 Blood Pressure Source Manual Cuff Right Upper Extremity Sitting Blood Pressure (90/60-120/80 mmHg) 130/70 H Blood Pressure Source Manual Cuff Right Upper Extremity Comments Vital Signs Comments Blood pressure drops more 20 mmHg from sitting to abrupt standing: Patient dizzines could be realted to Orthostatic hypotension PT-OP-M Strength Start: 06/09/18 15:24 Freq: Status: Active Protocol: Document 07/28/18 16:14 EA (Rec: 07/28/18 16:35 EA [id number]) Trunk Strength Trunk Manual Muscle Testing Flexion 3+ Fair+ Extension 3+ Fair+ Rotation Left 4- Good- Rotation Right 4- Good- Lateral Flexion Left 4- Good- Lateral Flexion Right 4- Good- Shoulder Strength Shoulder Manual Muscle Testing Left Comments Both UE's major muscle group grossly graded 4/5 Hip Strength Hip Manual Muscle Testing Left Comments Both LE major muscle group grossly graded 4/5 Right Comments Both LE's shirlene muscle group grossly graded 4/5 PT-OP-Q Treatments Start: 06/09/18 15:24 Freq: Status: Active Protocol: Document 07/28/18 16:14 EA (Rec: 07/28/18 16:35 EA [id number]) Cardio Equipment Recumbent Elliptical (Biodex) Duration (Minutes) 6 Resistance 2 Seat Position 10 Recumbent Stepper (Sci-Fit) Duration (Minutes) 6 Resistance 1.5 Seat Position 13 Recumbent Bicycle Duration (Minutes) 12 Resistance 2 Seat Position 5 Other Somewhat hard RPE Gym Equipment Cable Column (Body Solid) Rows Resistance x 2plates Reps/Time x 15 reps Leg Extension Resistance 1plate Reps/Time x 15 reps x 2 Lat Pull Down Resistance 2 plates Reps/Time x 15 reps Hip Adduction Resistance 1-2 plates Reps/Time 15 reps x 2 Hip Abduction Resistance 1-2 plates Reps/Time x 15 x 2sets Shuttle Recovery Bilateral Squats Resistance 2 cords Reps/Time 15 reps x 2 Therapeutic Exercises Standing Exercises 2 Standing Exercise Name sit to stand with head turing Reps/Minutes x 10 reps x 2 1 Standing Exercise Name heel raise, march, backwrd walk, sidestep, squat Side bilateral Reps/Minutes 10x ea Neuro Re-Education Treatment Balance Activities 2 Details Shuttle balance: NBOS/ stagarred stance PT-OP-T Assessment and Plan Start: 06/09/18 15:24 Freq: Status: Active Protocol: Document 07/28/18 16:14 EA (Rec: 07/28/18 16:35 EA [id number]) Physical Therapy Assessment Rehab Potential Rehabilitation Potential Fair Evaluation Complexity Number of Personal Factors/Comorbidities 3 or More Number of Body Systems Impaired 4 or More Clinical Presentation at Evaluation Unstable Impairments Impairments Activity Tolerance Balance Gait Strength Other Concerns Fall Risk yes Barriers to Rehabilitation Orthostatic hypotension, Ongoing cancer medical treatment, Depression stage Goals Three Impairment Impaired standing dynamic balance that led to 3 falls in 1 month [facility] Goal (LTG) Patient will record no falls in 1 month LTG Duration 4 wks Two Impairment Dynamic gait index score of 18 (Fall risk) Power System Engineer Goal (LTG) Patient have DGI score of 24 to prevent falls. LTG Duration 4 wks One Impairment Increase SOB at > 200 ft [facility] Goal (LTG) Patient will ambulate > 500 ft with min to no SOB LTG Duration 4 wks Progress Towards Goals Progress Towards Goals Slow Progress due to Medical Issues Assessment Summary Assessment Pleasant 62 y/o F patient who has been under my care in the past 6 weeks and has been seen 8 visits since started. Today patient presented with increased general body fatigue that requires frequent rest between bout of exercises. Patient progress is low at this time due to existing medical condition and dehydration issues in the past week. In my professional opinion, patient would continue to benefit with skilled PT to improve strength , prevent falls and enhance quality of life. Physical Therapy Plan Frequency and Duration Frequency of Treatment 2x/Week Plan of Care Start Date 05/27/18 Plan of Care End Date 09/22/18 Therapeutic Interventions Therapeutic Interventions Balance Training Gait Training Home Exercise Program Neuromuscular Re-education Patient/Caregiver Education Self-Care/Home Management Therapeutic Activities Therapeutic Exercises Vestibular Rehabilitation Next Visit Focus/Plan Next Note Type Treatment Note Next Visit Plan Progress as tolerated.
--- NOTE | 2018-07-28 16:37 | PT.OPPOC ---
Current Diagnoses Weakness (07/28/18) Provider Visit Care Team Role Provider Type Dank Leong MD Attending Provider Physician Primary Care Provider Specialty: Family Practice Address: [address] [place] [address], [id number] Email: [email or web address] Plan Of Care PT-OP-T Assessment and Plan Start: 06/09/18 15:24 Freq: Status: Active Protocol: Document 07/28/18 16:14 EA (Rec: 07/28/18 16:35 EA [id number]) Physical Therapy Assessment Rehab Potential Rehabilitation Potential Fair Evaluation Complexity Number of Personal Factors/Comorbidities 3 or More Number of Body Systems Impaired 4 or More Clinical Presentation at Evaluation Unstable Impairments Impairments Activity Tolerance Balance Gait Strength Other Concerns Fall Risk yes Barriers to Rehabilitation Orthostatic hypotension, Ongoing cancer medical treatment, Depression stage Goals Three Impairment Impaired standing dynamic balance that led to 3 falls in 1 month Senior Living Goal (LTG) Patient will record no falls in 1 month LTG Duration 4 wks Two Impairment Dynamic gait index score of 18 (Fall risk) Senior Living Goal (LTG) Patient have DGI score of 24 to prevent falls. LTG Duration 4 wks One Impairment Increase SOB at > 200 ft Senior Living Goal (LTG) Patient will ambulate > 500 ft with min to no SOB LTG Duration 4 wks Progress Towards Goals Progress Towards Goals Slow Progress due to Medical Issues Assessment Summary Assessment Pleasant 62 y/o F patient who has been under my care in the past 6 weeks and has been seen 8 visits since started. Today patient presented with increased general body fatigue that requires frequent rest between bout of exercises. Patient progress is low at this time due to existing medical condition and dehydration issues in the past week. In my professional opinion, patient would continue to benefit with skilled PT to improve strength , prevent falls and enhance quality of life. Physical Therapy Plan Frequency and Duration Frequency of Treatment 2x/Week Plan of Care Start Date 07/28/18 Plan of Care End Date 09/22/18 Therapeutic Interventions Therapeutic Interventions Balance Training Gait Training Home Exercise Program Neuromuscular Re-education Patient/Caregiver Education Self-Care/Home Management Therapeutic Activities Therapeutic Exercises Vestibular Rehabilitation Next Visit Focus/Plan Next Note Type Treatment Note Next Visit Plan Progress as tolerated. Plan of Care Dates Plan of Care Start Date 09/12/18 Plan of Care End Date 09/22/18 Please Sign and Return: I have reviewed this Plan of Care and certify that the skilled therapy services above are required to meet the patient?s needs. Physician Signature Date Printed Name and Credentials Clinical Instructor Signature Printed Name and Credentials
--- NOTE | 2018-09-07 11:08 | PT.OPDS ---
Current Diagnoses Weakness (07/28/18) Provider Visit Care Team Role Provider Type Dank Leong MD Attending Provider Physician Primary Care Provider Specialty: [facility] Practice Address: [address] [place] [address], [id number] Email: [email or web address] Visit Number Visit Number 8 Discharge Summary PT-OP-B Current Condition Start: 06/09/18 15:24 Freq: Status: Active Protocol: Document 07/28/18 16:14 EA (Rec: 07/28/18 16:35 EA [id number]) Current Condition History of Current Condition Onset Date 7 months ago Current Complaints General body weakness, balance and gait instability, multiple falls History of Current Condition Patient reports present condition started right after head surgery and cancer medical treatment. Patient states multiple falls usually happens when she abruptly stood up from sitting and as well when she is standing up with vertical head movement. Pt believes her dizziness is the reason of her fall. 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 Prior Treatments and Tests Ongoing cancer medical treatment since 10/2017. Ongoing left arm blood clots treatment. Future Testing and Treatments Planned Ongoing cancer medical treatment since 10/2017. Ongoing left arm blood clots treatment. Treatment Goals Patient/Caregiver Goals Patient wants to improve general body strength to prevent falls, improve endurance. Prior Functional Status Baseline Function- ADL's Independent Baseline Function- Mobility Independent Current Functional Impairments (Reported) Functional Limitations- ADL's Indep with moderate difficulty due to low endurance and weakness Functional Limitations- Mobility/Gait Gait intability that requires cane for out side amb Functional Limitations- Other Diffficulty of climbing stairs at home with total 19 steps Personal Factors Other Personal Factors That May Effect Current problems: Ongoing Therapy/Recovery cancer treatment, depression, multiple falls, Dizziness, sligt memory loss, vision problem. PT-OP-C Subjective Start: 06/09/18 15:24 Freq: Status: Active Protocol: Document 09/07/18 11:03 EA (Rec: 09/07/18 11:07 EA [id number]) OP-PT Subjective Patient Comments Patient Comments At 09/07/18, message from PT patient coordinator front desk that px's daughter called and cancelled all sceheduled PT appoinment as patient is currently having PT at [facility]. PT-OP-D Balance Start: 06/09/18 15:24 Freq: Status: Active Protocol: Document 07/28/18 16:14 EA (Rec: 07/28/18 16:35 EA [id number]) OP-PT Balance Assessment Standing Balance Static Standing Balance Ability Normal Dynamic Standing Balance Ability Good Balance Tests Functional Reach Functional Reach Impairment Rating 1 to <20% Impaired (Score 9) Single Limb Standing Single Limb- Right <3 secs Single Limb- Left < 3 secs Tandem Tandem Standing < 5 sec Lopez Fall Scale Copyright Permission John JM, John RM, Teto SJ. Development of a scale to identify the fall- prone patient. Can J Aging 1989;8;366-7. Navneet Lopez (2009). Preventing patient falls. (2nd ed). [place]: [place]. PT-OP-E Functional Tests Start: 06/09/18 15:24 Freq: Status: Active Protocol: Document 07/28/18 16:14 EA (Rec: 07/28/18 16:35 EA [id number]) Functional Tests Dynamic Gait Index (DGI) DGI Impairment Rating 20 to <40% Impaired (Score 15- 19) PT-OP-H Neuro Start: 06/09/18 15:24 Freq: Status: Active Protocol: Document 07/28/18 16:14 EA (Rec: 07/28/18 16:35 EA [id number]) Coordination Evaluation Upper Extremity Tests Left Finger to Nose Test Normal Performance Finger to Therapist's Finger Test Normal Performance Pronation/Supination Test Normal Performance Right Finger to Nose Test Normal Performance Finger to Therapist's Finger Test Normal Performance Finger to Finger Test Normal Performance Lower Extremity Tests Left Alternate Heel to Knee; Heel to Toe Test Normal Performance Heel on [place] Test Normal Performance Right Alternate Heel to Knee; Heel to Toe Test Normal Performance Heel on [place] Test Normal Performance Vital Signs Blood Pressure Standing Blood Pressure (90/60-120/80 mmHg) 90/70 Blood Pressure Source Manual Cuff Right Upper Extremity Sitting Blood Pressure (90/60-120/80 mmHg) 130/70 H Blood Pressure Source Manual Cuff Right Upper Extremity Comments Vital Signs Comments Blood pressure drops more 20 mmHg from sitting to abrupt standing: Patient dizzines could be realted to Orthostatic hypotension PT-OP-M Strength Start: 06/09/18 15:24 Freq: Status: Active Protocol: Document 07/28/18 16:14 EA (Rec: 07/28/18 16:35 EA [id number]) Trunk Strength Trunk Manual Muscle Testing Flexion 3+ Fair+ Extension 3+ Fair+ Rotation Left 4- Good- Rotation Right 4- Good- Lateral Flexion Left 4- Good- Lateral Flexion Right 4- Good- Shoulder Strength Shoulder Manual Muscle Testing Left Comments Both UE's major muscle group grossly graded 4/5 Hip Strength Hip Manual Muscle Testing Left Comments Both LE major muscle group grossly graded 4/5 Right Comments Both LE's shirlene muscle group grossly graded 4/5 PT-OP-T Assessment and Plan Start: 06/09/18 15:24 Freq: Status: Active Protocol: Document 09/07/18 11:03 EA (Rec: 09/07/18 11:07 EA [id number]) Physical Therapy Assessment Assessment Summary Assessment Pt is disharge from skilled PT . Physical Therapy Plan Discharge Physical Therapy Discharge Reasons No Longer Attending PT Discharge Comments Patient's daughter work
== END 2018-10-15 09:32 ==
LOC: PHYS 10:30
PROVIDERS: PCP Family Medicine; Visit Provider Family Medicine
DX: R53.1 Weakness (principal)
CPT/HCPCS: 96523; 97110; 97112; 97163; 97535

== ENCOUNTER 2018-08-04 18:54 | Emergency (ER) | payer MEDICARE, OTHER, SELFPAY ==
[2018-08-04 19:05] VITALS: BP 97/62; PULSE 101; RESP 17; TEMP 36.3; O2SAT 97
--- NOTE | 2018-08-04 19:48 | ED_ITS ---
HPI - Neuro Symptoms/Deficit General Chief Complaint: Neuro Symptoms/Deficit Stated Complaint: increasing confusion Time Seen by Provider: 08/04/18 19:47 Source: patient and family Mode of arrival: ambulatory Limitations: no limitations History of Present Illness HPI Narrative: Patient is a 63-year-old female with a known history of lung cancer with metastasis to the brain who just got her 1st dose of a new chemotherapy medication 3 days ago by the port in her right upper chest. Patient is here with her daughter who states that over the past couple days the patient has been seeing things that are not there. The daughter reports that last evening the patient was stating that she saw a parade in the middle of the road. Has also been reports that the patient was complaining seeing other objects on around her car. Patient does not seem to be disturbed by this. Patient does state that she did see these objects. Patient and daughter deny any other symptoms. On Anticoagulants: Yes Related Data Home Medications Medication Instructions Recorded Confirmed calcium citrate-vitamin D3 1 tab PO QDAY #0 12/03/16 07/15/18 [Citracal Regular] ranitidine HCl 75 mg PO QDAY #0 12/10/17 07/15/18 docusate sodium [Colace] 100 mg PO QDAY #0 01/05/18 07/15/18 albuterol sulfate [Ventolin HFA] 2 puff INH Q4HP PRN 03/16/18 07/15/18 benzonatate [Tessalon Perles] 100 mg PO Q6HP PRN 03/16/18 07/15/18 lidocaine-prilocaine 1 mindy TOPICAL PRN PRN 03/16/18 07/15/18 ondansetron HCl [Zofran] 8 mg PO Q6HP PRN 03/16/18 07/15/18 melatonin 3 mg PO BEDTIME PRN 04/26/18 07/15/18 warfarin 5 mg PO DAILY 06/29/18 07/15/18 ondansetron 8 mg PO TID PRN 08/02/18 08/02/18 Previous Rx's Medication Instructions Recorded cetirizine 10 mg PO QDAY #30 tab 01/27/17 levetiracetam [Keppra] 500 mg PO BID #60 12/10/17 [address]ing Permit ea #1 12/24/17 bupropion HCl [Wellbutrin SR] 150 mg PO BID #180 tab 04/14/18 alprazolam 0.25 mg PO PRN PRN #10 tab 04/26/18 levothyroxine 175 mcg tablet 175 mcg PO QAM #120 tab 07/14/18 venlafaxine ER 75 mg 75 mg PO DAILY #30 cap 07/15/18 capsule,extended release 24 hr folic acid 1 mg PO DAILY #90 tab 07/29/18 Allergies Allergy/AdvReac Type Severity Reaction Status Date / Time bacitracin Allergy Mild ITCHING Verified 07/15/18 11:29 [From NEOSPORIN ([id number])] neomycin Allergy Mild ITCHING Verified 07/15/18 11:29 [From NEOSPORIN ([id number])] polymyxin B Allergy Mild ITCHING Verified 07/15/18 11:29 [From NEOSPORIN ([id number])] diphenhydramine AdvReac Mild ELEVATED Verified 07/15/18 11:29 [DIPHENHYDRAMINE] HEART RATE erythromycin base AdvReac Mild Difficulty Verified 07/15/18 11:29 [ERYTHROMYCIN BASE] Breathing caffeine [From CAFERGOT] AdvReac Unknown ELEVATED Verified 07/15/18 11:29 HR, MIGRAINE ergotamine [From CAFERGOT] AdvReac Unknown ELEVATED Verified 07/15/18 11:29 HR, MIGRAINE Review of Systems Constitutional Denies fever(s) and Denies headache(s) ENT Ears, Nose, Mouth, and Throat: Denies vertigo, Denies dizziness and Denies headache(s) Cardiovascular Denies chest pain and Denies dyspnea Respiratory Denies dyspnea Gastrointestinal Gastrointestinal: Denies abdominal pain, Denies nausea and Denies vomiting Genitourinary Reports dysuria Comments: Dark and foul smelling urine Musculoskeletal Reports back pain (Chronic back pain), Denies myalgias and Denies arthralgias Integumentary/Breasts Denies lesions and Denies rash Neurologic Reports behavioral changes, Reports confusion, Denies vertigo, Denies dizziness and Denies headache(s) Psychiatric Reports behavioral changes, Reports confusion, Reports visual hallucinations, Reports hallucinations and Denies tactile hallucinations Hematologic/Lymphatic Reports easy bleeding (On Coumadin) and Denies easy bruising PFSH Medical History Lung cancer metastatic to brain (Chronic) Hypoxia (Chronic) Lung cancer (Chronic) 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) Secondary malignant neoplasm of brain (Chronic) Hyperlipidemia (Chronic) Chronic major depressive disorder (Chronic) Current smoker (Chronic 06/15/14) Essential hypertension (Chronic 01/28/17) 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) Weakness of left lower extremity (Chronic 11/25/17) Non-small cell carcinoma of lung (Chronic 02/11/18) Anxiety (Acute) Chronic back pain (Acute) Depression (Acute) Dyspnea (Acute) History of anemia (Acute) History of headache (Acute) Hypertension (Acute) Hypothyroidism (Acute) Peripheral vision loss (Acute) Port-a-cath in place (Acute) Postmenopausal (Acute) Recurrent sinusitis (Acute) Thrombus (Acute) Worsening headaches (Acute) Hyperlipidemia (Chronic) Chicken pox (Resolved) Measles (Resolved) Surgical History Status post tubal ligation Family History Brother Age: 63 Heart disease Diabetes mellitus Father Age: 91 Hypertension Hyperlipidemia Obese Diabetes mellitus Sister Age: 59 Leukemia Hong's thyroiditis Diabetes mellitus Social History marital status: Smoking Status: Former smoker alcohol intake: never substance use type: does not use Exam Initial Vital Signs Initial Vital Signs: Vital Signs Temperature 97.4 F L 08/04/18 19:05 Pulse Rate 101 H 08/04/18 19:05 Respiratory Rate 17 08/04/18 19:05 Blood Pressure 97/62 08/04/18 19:05 Pulse Oximetry 97 08/04/18 19:05 Const General: cooperative, healthy appearing, comfortable, well developed, well groomed and No acute distress Orientation: alert, awake and oriented x3 HENMT Head: normal to inspection and normocephalic Resp Effort & Inspection: normal respiratory effort Auscultation: clear to auscultation bilaterally Cardio Rate: regular rate Rhythm: regular rhythm Pulses: radial pulses present GI Inspection: non-distended Palpation: soft and No tender Skin Lesions: no lesions Rashes: no rashes Neuro General: alert, awake and oriented x3 Cranial Nerves: CN's II-XI intact bilaterally Cognition: normal cognition Speech: speech normal Gait: normal gait Motor: muscle tone normal throughout Sensory Exam: no sensory deficits noted Extrem General: normal to inspection, capillary refill normal and no pedal edema Psych Appearance: grossly normal and well kempt Speech and Movement: speech and movement normal Mood: congruent mood Affect: normal affect Attitude: cooperative Thought Process: normal Thought Content: normal Course Orders Ordered: ED Orders 08/04/18 19:51 CT head/brain wo con Stat 08/04/18 20:05 Acetaminophen Stat B Type Natriuretic Peptide Stat Complete Blood Count AUTO DIFF Stat Comprehensive Metabolic Panel Stat Ethanol (ETOH) Stat Lactate (Lactic Acid) Stat Lipase Stat Partial Thromboplastin Time Stat Prothrombin Time INR Stat Thyroid Stimulating Hormone Stat 08/04/18 20:43 Blood Culture Stat 08/04/18 20:52 Ammonia (NH3) Stat 08/04/18 22:21 Urine Drug Screen, Rapid Stat Urine Microscopic Stat Discontinued Medications Sodium Chloride (Normal Saline 0.9%) 1,000 mls @ 1,000 mls/hr IV BOLUS ONE Stop: 08/04/18 20:49 Last Admin: 08/04/18 20:15 Dose: 1,000 mls/hr Vital Signs - 8 hr 08/04/18 19:05 08/04/18 20:36 08/04/18 21:30 Temperature 97.4 F L Pulse Rate 101 H 100 H 80 Respiratory Rate 17 18 Blood Pressure 97/62 Blood Pressure [Right Arm] 118/67 126/90 Pulse Oximetry 97 100 96 08/04/18 22:45 Temperature Pulse Rate 76 Respiratory Rate 20 Blood Pressure Blood Pressure [Right Arm] 124/96 H Pulse Oximetry 96 MDM - Neuro Symptoms/Deficit Medical Records Attestation: I reviewed the patient's medical records. Lab Data Attestation: I reviewed the patient's lab results. Result diagrams: 08/04/18 20:05 08/04/18 20:05 Lab Results 08/04/18 08/04/18 08/04/18 Range/Units 20:05 20:05 20:05 WBC 6.3 (4.5-11.0) X10^3/uL RBC 3.66 L (4.0-5.2) X10^6/uL Hgb 11.9 L (12.0-16.0) g/dL Hct 35.1 L (36-46) % MCV 95.8 (80-100) fL MCH 32.4 (26-34) PG MCHC 33.8 (30-36) % RDW 13.0 (11.6-14.8) % Plt Count 230 (150-400) X10^3/uL Neut % (Auto) 65.8 (50-75) % Lymph % (Auto) 29.0 (25-40) % Donley % (Auto) 4.9 (3-14) % Eos % (Auto) 0.0 L (2-4) % Baso % (Auto) 0.3 (0-2) % Neut # (Auto) 4200 (0297-8188) /uL PT (10.1-12.7) SECONDS INR (0.9-1.3) APTT (26.4-36.2) SECONDS Sodium 145 (137-145) mmol/L Potassium 3.6 (3.4-5.1) mmol/L Chloride 104 (98-107) mmol/L Carbon Dioxide 29 (22-32) mmol/L BUN 24 H (7-17) mg/dL Creatinine 1.00 (0.52-1.04) mg/dL Estimated GFR 55.6 L (>60) mL/min BUN/Creatinine Ratio 24.0 H (6-22) Glucose 102 (80-110) mg/dL Lactate 1.0 (0.7-2.1) mmol/L Calcium 9.3 (8.4-10.2) mg/dL Total Bilirubin 0.6 (0.2-1.3) mg/dL AST 31 (14-36) IU/L ALT 23 (9-52) IU/L Alkaline Phosphatase 48 (38-126) U/L Ammonia (9-30) umol/L B-Natriuretic Peptide < 100.0 (<100) Total Protein 6.5 (6.3-8.2) g/dL Albumin 3.9 (3.5-5.0) g/dL Globulin 2.6 (1.7-4.1) g/dL Albumin/Globulin Ratio 1.5 (1.0-2.8) Lipase 54 (23-300) U/L TSH (0.47-4.68) uIU/mL Urine RBC (0-5/HPF) Urine WBC (0-5/HPF) Ur Squamous Epith Cells Uric Acid Crystals Urine Bacteria (None) Granular Casts (None) Ur Culture Indicated? Micro UA Comment Urine Opiates Screen (Negative) Ur Oxycodone Screen (Negative) Urine Methadone Screen (Negative) Acetaminophen < 10 L (10-30) ug/mL Ur Barbiturates Screen (Negative) U Tricyclic Antidepress (Negative) Ur Phencyclidine Scrn (Negative) Ur Amphetamines Screen (Negative) U Methamphetamines Scrn (Negative) Ur MDMA Scrn (Ecstasy) (Negative) U Benzodiazepines Scrn (Negative) Urine Cocaine Screen (Negative) U Marijuana (THC) Screen (Negative) Ethyl Alcohol < 10 mg/dL 08/04/18 08/04/18 08/04/18 Range/Units 20:05 20:05 20:52 WBC (4.5-11.0) X10^3/uL RBC (4.0-5.2) X10^6/uL Hgb (12.0-16.0) g/dL Hct (36-46) % MCV (80-100) fL MCH (26-34) PG MCHC (30-36) % RDW (11.6-14.8) % Plt Count (150-400) X10^3/uL Neut % (Auto) (50-75) % Lymph % (Auto) (25-40) % Donley % (Auto) (3-14) % Eos % (Auto) (2-4) % Baso % (Auto) (0-2) % Neut # (Auto) (3746-4227) /uL PT 33.9 H (10.1-12.7) SECONDS INR 3.1 H (0.9-1.3) APTT 41 H (26.4-36.2) SECONDS Sodium (137-145) mmol/L Potassium (3.4-5.1) mmol/L Chloride (98-107) mmol/L Carbon Dioxide (22-32) mmol/L BUN (7-17) mg/dL Creatinine (0.52-1.04) mg/dL Estimated GFR (>60) mL/min BUN/Creatinine Ratio (6-22) Glucose (80-110) mg/dL Lactate (0.7-2.1) mmol/L Calcium (8.4-10.2) mg/dL Total Bilirubin (0.2-1.3) mg/dL AST (14-36) IU/L ALT (9-52) IU/L Alkaline Phosphatase (38-126) U/L Ammonia < 9.0 L (9-30) umol/L B-Natriuretic Peptide (<100) Total Protein (6.3-8.2) g/dL Albumin (3.5-5.0) g/dL Globulin (1.7-4.1) g/dL Albumin/Globulin Ratio (1.0-2.8) Lipase (23-300) U/L TSH < 0.02 L (0.47-4.68) uIU/mL Urine RBC (0-5/HPF) Urine WBC (0-5/HPF) Ur Squamous Epith Cells Uric Acid Crystals Urine Bacteria (None) Granular Casts (None) Ur Culture Indicated? Micro UA Comment Urine Opiates Screen (Negative) Ur Oxycodone Screen (Negative) Urine Methadone Screen (Negative) Acetaminophen (10-30) ug/mL Ur Barbiturates Screen (Negative) U Tricyclic Antidepress (Negative) Ur Phencyclidine Scrn (Negative) Ur Amphetamines Screen (Negative) U Methamphetamines Scrn (Negative) Ur MDMA Scrn (Ecstasy) (Negative) U Benzodiazepines Scrn (Negative) Urine Cocaine Screen (Negative) U Marijuana (THC) Screen (Negative) Ethyl Alcohol mg/dL 08/04/18 08/04/18 Range/Units 22:21 22:21 WBC (4.5-11.0) X10^3/uL RBC (4.0-5.2) X10^6/uL Hgb (12.0-16.0) g/dL Hct (36-46) % MCV (80-100) fL MCH (26-34) PG MCHC (30-36) % RDW (11.6-14.8) % Plt Count (150-400) X10^3/uL Neut % (Auto) (50-75) % Lymph % (Auto) (25-40) % Donley % (Auto) (3-14) % Eos % (Auto) (2-4) % Baso % (Auto) (0-2) % Neut # (Auto) (0689-1258) /uL PT (10.1-12.7) SECONDS INR (0.9-1.3) APTT (26.4-36.2) SECONDS Sodium (137-145) mmol/L Potassium (3.4-5.1) mmol/L Chloride (98-107) mmol/L Carbon Dioxide (22-32) mmol/L BUN (7-17) mg/dL Creatinine (0.52-1.04) mg/dL Estimated GFR (>60) mL/min BUN/Creatinine Ratio (6-22) Glucose (80-110) mg/dL Lactate (0.7-2.1) mmol/L Calcium (8.4-10.2) mg/dL Total Bilirubin (0.2-1.3) mg/dL AST (14-36) IU/L ALT (9-52) IU/L Alkaline Phosphatase (38-126) U/L Ammonia (9-30) umol/L B-Natriuretic Peptide (<100) Total Protein (6.3-8.2) g/dL Albumin (3.5-5.0) g/dL Globulin (1.7-4.1) g/dL Albumin/Globulin Ratio (1.0-2.8) Lipase (23-300) U/L TSH (0.47-4.68) uIU/mL Urine RBC 0-1/hpf (0-5/HPF) Urine WBC 0-1/hpf (0-5/HPF) Ur Squamous Epith Cells 0-1 /hpf Uric Acid Crystals Few Urine Bacteria Occasional (0-1) (None) Granular Casts 0-1/lpf (None) Ur Culture Indicated? Cult not indicated Micro UA Comment Not Reportable Urine Opiates Screen Negative (Negative) Ur Oxycodone Screen Negative (Negative) Urine Methadone Screen Negative (Negative) Acetaminophen (10-30) ug/mL Ur Barbiturates Screen Negative (Negative) U Tricyclic Antidepress Negative (Negative) Ur Phencyclidine Scrn Negative (Negative) Ur Amphetamines Screen Negative (Negative) U Methamphetamines Scrn Negative (Negative) Ur MDMA Scrn (Ecstasy) Negative (Negative) U Benzodiazepines Scrn Positive H (Negative) Urine Cocaine Screen Negative (Negative) U Marijuana (THC) Screen Negative (Negative) Ethyl Alcohol mg/dL Urine Dip Bedside Urine Glucose Negative Bedside Urine Bilirubin - Negative Bedside Urine Ketone - Negative Urine Specific [place] 1.030 Bedside Urine Occult Blood +/- Bedside Urine pH 5.5 Bedside Urine Protein - Negative Bedside Urine Urobilinogen - Negative Bedside Urine Nitrite - Negative Bedside Urine Leukocytes - Negative Esterase Imaging Data CT scan - head: Radiologist's impression: [address] [address] [address] Scan Report Signed Patient: Luz Elena Willett LMR#: [id number] : 3Acct:[id number] Age/Sex: 63 / FDate of Service: 08/04/18 Loc: ED Accession Number: [id number] Procedure: CT head/brain wo con Ordering Provider: Arturo Bourgeois D.O. PROCEDURE: CT HEAD/BRAIN WO CON INDICATIONS: hx of brain mets and has AMS TECHNIQUE: Noncontrast 4.5 mm thick angled axial sections acquired from the foramen magnum to the vertex, with coronal and sagittal reformats. For radiation dose reduction, the following was used: automated exposure control, adjustment of mA and/or kV according to patient size. COMPARISON: None. FINDINGS: Image quality: Excellent. CSF spaces: Basal cisterns are patent. No extra-axial fluid collections. The ventricles are symmetric in size and shape. Brain: No intracranial bleeds or masses. Again noted is prior right parieto- occipital resection cavity, unchanged from previous study. There is cerebral volume loss for age, with resultant ventricular and sulcal prominence. There are periventricular and deep white matter chronic small vessel ischemic changes. There is intracranial internal carotid artery atherosclerosis. Skull and face: Postcraniotomy changes in right parieto-occipital calvarium are again seen without suspicious lesions. No acute calvarial fracture. Sinuses: Visualized sinuses and mastoids are clear. IMPRESSION: No CT evidence of acute intracranial pathology. Stable postsurgical changes in right parieto-occipital region from prior mass resection. Dictated by: Gian Costa M.D. on 08/04/2018 at 20:33 Approved by: Gian Costa M.D. on 08/04/2018 at 20:35 [facility] Narrative Medical decision making narrative: Patient with a normal workup here in the emergency department. No signs of new pathology on the head CT. No signs of head bleed. Her urine was also unremarkable. Patient was calm and comfortable here in the ER. Had a discussion with the patient and her daughter who is at bedside regarding her symptoms. After this discussion we felt that admission to the hospital was not warranted and that follow up with her primary care doctor and also her oncologist is not unreasonable as an outpatient. We did discuss return precautions. The patient and the daughter both felt comfortable with the patient going home. They expressed understanding and agreement with plan. Discharge Plan Departure Patient Disposition: Home Clinical Impression: Episodes of formed visual hallucinations, Lung cancer Discharge Date/Time: 08/04/18 23:15 Interventions: ED Discharge Assessment Last Done: 08/04/18 23:30 Activity Restrictions/Additional Instructions: recommend that you continue all of your medications. Contact your oncologist and also your primary care doctor for a follow-up. Return to the emergency department for any new or worsening symptoms Prescriptions: No Action calcium citrate-vitamin D3 [Citracal Regular] 250 MG/200 IU tablet 1 tab PO QDAY Qty: 0 RF: 0 cetirizine 10 MG tablet 10 mg PO QDAY Qty: 30 RF: 3 ranitidine HCl 75 MG tablet 75 mg PO QDAY Qty: 0 RF: 0 levetiracetam [Keppra] 500 MG tablet 500 mg PO BID Qty: 60 RF: 9 Disabled Parking Permit Qty: 1 RF: 0 docusate sodium [Colace] 100 MG capsule 100 mg PO QDAY Qty: 0 RF: 0 bupropion HCl [Wellbutrin SR] 150 mg tablet extended release 12 hr 150 mg PO BID Qty: 180 RF: 2 levothyroxine [Synthroid] 175 mcg tablet 175 mcg PO QAM Qty: 120 RF: 2 venlafaxine [Effexor XR] 75 mg capsule,extended release 24hr 75 mg PO DAILY Qty: 30 RF: 3 benzonatate [Tessalon Perles] 100 MG capsule 100 mg PO Q6HP PRN (Reason: Cough) RF: 0 albuterol sulfate [Ventolin HFA] 90 MCG/PUFF HFA aerosol inhaler 2 puff INH Q4HP PRN (Reason: Adequate Ventilation) RF: 0 ondansetron HCl [Zofran] 8 MG tablet 8 mg PO Q6HP PRN (Reason: Nausea) RF: 0 lidocaine-prilocaine 2.5 %/2.5 % cream 1 mindy Topical PRN PRN (Reason: Skin Irritation) RF: 0 melatonin 3 mg Tablet 3 mg PO BEDTIME PRN (Reason: Agitation) RF: 0 alprazolam 0.25 mg Tablet 0.25 mg PO PRN PRN (Reason: Anxiety) Qty: 10 RF: 0 warfarin 5 mg Tablet 5 mg PO DAILY RF: 0 folic acid 1 mg Tablet 1 mg PO DAILY Qty: 90 RF: 1 ondansetron 8 mg Tablet,Disintegrating 8 mg PO TID PRN (Reason: Nausea) RF: 0
--- NOTE | 2018-08-04 19:51 | DI.CT.S_ITS ---
PROCEDURE: CT HEAD/BRAIN WO CON INDICATIONS: hx of brain mets and has AMS TECHNIQUE: Noncontrast 4.5 mm thick angled axial sections acquired from the foramen magnum to the vertex, with coronal and sagittal reformats. For radiation dose reduction, the following was used: automated exposure control, adjustment of mA and/or kV according to patient size. COMPARISON: None. FINDINGS: Image quality: Excellent. CSF spaces: Basal cisterns are patent. No extra-axial fluid collections. The ventricles are symmetric in size and shape. Brain: No intracranial bleeds or masses. Again noted is prior right parieto-occipital resection cavity, unchanged from previous study. There is cerebral volume loss for age, with resultant ventricular and sulcal prominence. There are periventricular and deep white matter chronic small vessel ischemic changes. There is intracranial internal carotid artery atherosclerosis. Skull and face: Postcraniotomy changes in right parieto-occipital calvarium are again seen without suspicious lesions. No acute calvarial fracture. Sinuses: Visualized sinuses and mastoids are clear. IMPRESSION: No CT evidence of acute intracranial pathology. Stable postsurgical changes in right parieto-occipital region from prior mass resection. Dictated by: Gian Costa M.D. on 08/04/2018 at 20:33 Approved by: Gian Costa M.D. on 08/04/2018 at 20:35
[2018-08-04] MEDS: SODIUM CHLORIDE 0.9% 1,000 ML 1000 ML IV (20:15)
[2018-08-04 20:29] LABS: Add Manual Diff / Slide Review NO; Basophils Percent Auto 0.3 % (0-2); Hematocrit 35.1 % (36-46); Hemoglobin 11.9 g/dL (12.0-16.0); Mean Corpuscular HGB Conc 33.8 % (30-36); Mean Corpuscular Hemoglobin 32.4 PG (26-34); Mean Corpuscular Volume 95.8 fL (80-100); Monocytes Percent Auto 4.9 % (3-14); Neutrophils Absolute Auto 4200 /uL (3000-5900); Neutrophils Percent Auto 65.8 % (50-75); Platelet Count 230 X10^3/uL (150-400); Red Blood Cell Count 3.66 X10^6/uL (4.0-5.2); White Blood Cell Count 6.3 X10^3/uL (4.5-11.0)
[2018-08-04 20:30] LABS: INR 3.1 (0.9-1.3); Prothrombin Time 33.9 SECONDS (10.1-12.7)
[2018-08-04 20:32] LABS: PTT Partial Thromboplastin Tim 41 SECONDS (26.4-36.2)
[2018-08-04 20:36] VITALS: BP 118/67; PULSE 100; O2SAT 100
[2018-08-04 20:41] LABS: Acetaminophen < 10 ug/mL (10-30); Alanine Aminotransferase 23 IU/L (9-52); Albumin 3.9 g/dL (3.5-5.0); Albumin Globulin Ratio 1.5 (1.0-2.8); Alkaline Phosphatase 48 U/L (38-126); Aspartate Aminotransferase 31 IU/L (14-36); B Type Natriuretic Peptide < 100.0 (<100); Bilirubin Total 0.6 mg/dL (0.2-1.3); Blood Urea Nitrogen 24 mg/dL (7-17); Calcium 9.3 mg/dL (8.4-10.2); Carbon Dioxide 29 mmol/L (22-32); Chloride 104 mmol/L (98-107); Estimated Glomerular Filt Rate 55.6 mL/min (>60); Ethanol (ETOH) < 10 mg/dL; Globulin 2.6 g/dL (1.7-4.1); Glucose 102 mg/dL (80-110); HEMOLYSIS < 15 (0-50); Lipase 54 U/L (23-300); Potassium 3.6 mmol/L (3.4-5.1); Sodium 145 mmol/L (137-145); Total Protein 6.5 g/dL (6.3-8.2)
[2018-08-04 21:08] LABS: Ammonia (NH3) < 9.0 umol/L (9-30)
[2018-08-04 21:24] LABS: Thyroid Stimulating Hormone < 0.02 uIU/mL (0.47-4.68)
[2018-08-04 21:30] VITALS: BP 126/90; PULSE 80; RESP 18; O2SAT 96
[2018-08-04 22:44] LABS: Urine Amphetamines Negative (Negative); Urine Barbiturates Negative (Negative); Urine Benzodiazepines Positive (Negative); Urine Cocaine Negative (Negative); Urine MDMA Negative (Negative); Urine Methadone Negative (Negative); Urine Methamphetamines Negative (Negative); Urine Morphine/Opi cutoff 2000 Negative (Negative); Urine Oxycodone Negative (Negative); Urine Phencyclidine Negative (Negative); Urine Tetrahydrocannabinol Negative (Negative); Urine Tricyclic Antidepressant Negative (Negative)
[2018-08-04 22:45] VITALS: BP 124/96; PULSE 76; RESP 20; O2SAT 96
[2018-08-04 23:02] LABS: Bacteria Urine Occasional (0-1); Granular Casts Urine 0-1/LPF; RBC Urine 0-1/HPF (0-5/HPF); Squamous Epithelial Cell Urine 0-1 /HPF; Uric Acid Crystals Urine Few; WBC Urine 0-1/HPF (0-5/HPF)
[2018-08-04 23:03] LABS: Culture Indicated Urine Cult Not Indicated
== END 2018-08-04 23:15 | disposition home or self-care (01) ==
PROVIDERS: Emergency Provider Emergency Medicine; Family Provider Family Medicine; PCP Family Medicine
DX: R44.1 Visual hallucinations (principal); C34.90 Malignant neoplasm of unspecified part of unspecified bronchus or lung
CPT/HCPCS: 36415; 36591; 70450; 80053; 80305; 80320; 80329; 81003; 81015; 82140; 83605; 83690; 83880; 84443; 85025; 85610; 85730; 87040; 96360; 99283; 99284; 99291; G0480

== ENCOUNTER 2018-08-29 16:45 | Inpatient (IN) | payer MEDICARE, OTHER, SELFPAY ==
[2018-08-29 16:52] VITALS: TEMP 36.2; BMI 26.1
--- NOTE | 2018-08-29 16:52 | DI.CT.S_ITS ---
PROCEDURE: CT HEAD/BRAIN WO CON INDICATIONS: fall, head injury, on coumadin TECHNIQUE: Noncontrast 4.5 mm thick angled axial sections acquired from the foramen magnum to the vertex, with coronal and sagittal reformats. For radiation dose reduction, the following was used: automated exposure control, adjustment of mA and/or kV according to patient size. COMPARISON: [facility], CT, CT HEAD/BRAIN WO CON, 08/04/2018, 20:17. FINDINGS: Image quality: Excellent. CSF spaces: Basal cisterns are patent. No extra-axial fluid collections. The ventricles are symmetric in size and shape. Brain: No intracranial bleeds or masses. Right parietal resection cavity is present , as before. There is cerebral volume loss for age, with resultant ventricular and sulcal prominence. There are periventricular and deep white matter chronic small vessel ischemic changes. There is intracranial internal carotid artery atherosclerosis. Skull and face: Right parietal craniotomy has been performed. Calvarium and visualized facial bones otherwise appear intact, without suspicious lesions. Sinuses: Visualized sinuses and mastoids are clear. IMPRESSION: No acute process. Stable postsurgical sequelae. Dictated by: Alfa Sanches M.D. on 08/29/2018 at 17:15 Approved by: Alfa Sanches M.D. on 08/29/2018 at 17:17
[2018-08-29 17:00] LABS: Add Manual Diff / Slide Review NO; Eosinophils Percent Auto 0.8 % (2-4); Hematocrit 34.7 % (36-46); Hemoglobin 11.7 g/dL (12.0-16.0); Lymphocytes Percent Auto 40.8 % (25-40); Mean Corpuscular HGB Conc 33.7 % (30-36); Mean Corpuscular Hemoglobin 32.2 PG (26-34); Mean Corpuscular Volume 95.5 fL (80-100); Monocytes Percent Auto 11.5 % (3-14); Neutrophils Absolute Auto 2300 /uL (3000-5900); Neutrophils Percent Auto 44.9 % (50-75); Platelet Count 297 X10^3/uL (150-400); Red Blood Cell Count 3.64 X10^6/uL (4.0-5.2); Red Cell Distribution Width 13.3 % (11.6-14.8); White Blood Cell Count 5.1 X10^3/uL (4.5-11.0)
[2018-08-29 17:06] LABS: BUN Creatinine Ratio 13.3 (6-22); Blood Urea Nitrogen 12 mg/dL (7-17); Calcium 9.5 mg/dL (8.4-10.2); Carbon Dioxide 22 mmol/L (22-32); Chloride 103 mmol/L (98-107); Estimated Glomerular Filt Rate > 60.0 mL/min (>60); Glucose 75 mg/dL (80-110); HEMOLYSIS < 15 (0-50); Potassium 3.3 mmol/L (3.4-5.1); Sodium 142 mmol/L (137-145)
[2018-08-29 17:18] LABS: INR 8.3 (0.9-1.3); Prothrombin Time 94.3 SECONDS (10.1-12.7)
--- NOTE | 2018-08-29 17:18 | ED.FALL ---
HPI - Fall General Chief Complaint: Fall Stated Complaint: GLF, on blood thinners Time Seen by Provider: 08/29/18 16:46 Source: patient and EMS Mode of arrival: EMS Limitations: altered mental status History of Present Illness HPI Narrative: 63-year-old former smoker with widespread metastatic disease presents by EMS for evaluation of generalized weakness and a fall. The patient denies any injuries and states she is pretty much at her baseline but family stresses she is quite a poor historian. She has been recently seen by her primary care provider and is being treated for oral candidiasis. She has a decreased appetite presumably due to chronic underlying medical problems as well as new thrush. Her most recent chemo was about 3 weeks ago. She wishes to continue treatment of her cancer but is a DNR. Patient has been eating minimally for quite some time, often less than 200 kilocalorie is per day but it has been significantly less over the past 5 days. She is really eating and drinking very minimally. At her last visit with Oncology she was started prednisone to help increase her appetite but this was unsuccessful. MD complaint: fall Onset (ago): minute(s) Fall witnessed: no Place fall occurred: home Loss of consciousness: none Related Data Home Medications Medication Instructions Recorded Confirmed calcium citrate-vitamin D3 1 tab PO QDAY #0 12/03/16 08/25/18 [Citracal Regular] ranitidine HCl 75 mg PO QDAY #0 12/10/17 08/25/18 docusate sodium [Colace] 100 mg PO QDAY #0 01/05/18 08/25/18 albuterol sulfate [Ventolin HFA] 2 puff INH Q4HP PRN 03/16/18 08/25/18 benzonatate [Tessalon Perles] 100 mg PO Q6HP PRN 03/16/18 08/25/18 lidocaine-prilocaine 1 mindy TOPICAL PRN PRN 03/16/18 08/25/18 melatonin 3 mg PO BEDTIME PRN 04/26/18 08/25/18 warfarin 5 mg PO DAILY 06/29/18 08/25/18 ondansetron 8 mg PO TID PRN 08/02/18 08/25/18 Previous Rx's Medication Instructions Recorded cetirizine 10 mg PO QDAY #30 tab 01/27/17 levetiracetam [Keppra] 500 mg PO BID #60 12/10/17 Dis[address]ing Permit ea #1 12/24/17 bupropion HCl [Wellbutrin SR] 150 mg PO BID #180 tab 04/14/18 alprazolam 0.25 mg PO PRN PRN #10 tab 04/26/18 venlafaxine ER 75 mg 75 mg PO DAILY #30 cap 07/15/18 capsule,extended release 24 hr folic acid 1 mg PO DAILY #90 tab 07/29/18 levothyroxine [Unithroid] 150 mcg PO DAILY 90 Days #90 tab 08/23/18 nystatin 5 ml PO QID #100 ml 08/23/18 prednisone 5 mg PO DAILY #30 tab 08/23/18 fluconazole 200 mg tablet 200 mg PO DAILY #10 tab 08/25/18 Allergies Allergy/AdvReac Type Severity Reaction Status Date / Time bacitracin Allergy Mild ITCHING Verified 08/25/18 10:33 [From NEOSPORIN ([id number])] neomycin Allergy Mild ITCHING Verified 08/25/18 10:33 [From NEOSPORIN ([id number])] polymyxin B Allergy Mild ITCHING Verified 08/25/18 10:33 [From NEOSPORIN ([id number])] diphenhydramine AdvReac Mild ELEVATED Verified 08/25/18 10:33 [DIPHENHYDRAMINE] HEART RATE erythromycin base AdvReac Mild Difficulty Verified 08/25/18 10:33 [ERYTHROMYCIN BASE] Breathing caffeine [From CAFERGOT] AdvReac Unknown ELEVATED Verified 08/25/18 10:33 HR, MIGRAINE ergotamine [From CAFERGOT] AdvReac Unknown ELEVATED Verified 08/25/18 10:33 HR, MIGRAINE Review of Systems Review of Systems All systems reviewed & are unremarkable except as noted in HPI and below Constitutional Denies chills, Denies fever(s), Denies lethargy and Reports weakness Eyes Denies change in vision, Denies eye discharge, Denies irritation and Denies loss of vision ENT Ears, Nose, Mouth, and Throat: Denies change in voice, Denies neck pain and Denies sore throat Cardiovascular Denies chest pain, Denies irregular heart rhythm, Denies lightheadedness, Denies palpitations, Denies dyspnea, Denies dyspnea on exertion and Denies orthopnea Respiratory Denies cough, Denies dyspnea, Denies dyspnea on exertion and Denies wheezing Gastrointestinal Gastrointestinal: Denies abdominal pain, Denies change in bowel habits, Denies diarrhea, Denies nausea and Denies vomiting Genitourinary Denies hematuria, Denies flank pain, Denies urinary incontinence and Denies urinary urgency Musculoskeletal Denies neck pain Integumentary/Breasts Denies pruritus, Denies erythema, Denies rash and Denies wounds Neurologic Denies confusion, Denies loss of vision and Reports weakness Psychiatric Denies anxiety, Denies confusion, Denies depression, Denies homicidal ideation and Denies suicidal ideation Endocrine Denies palpitations Hematologic/Lymphatic Denies easy bruising Allergic/Immunologic Denies wheezing Exam Narrative Exam Narrative: GENERAL: 63-year-old chronically ill patient appears unwell. Clearly dehydrated with dry mucous membranes HEAD: Atraumatic. Normocephalic. No temporal or scalp tenderness. EYES: Pupils equal round and reactive. Extraocular motions intact. No scleral icterus. No injection or drainage. ENT: Nose without bleeding, purulent drainage or septal hematoma. Throat without erythema, tonsillar hypertrophy or exudate. Uvula midline. Airway patent. NECK: Trachea midline. No JVD or lymphadenopathy. Supple, nontender, no meningeal signs. CARDIOVASCULAR: Regular rate and rhythm without murmurs, gallops, or rubs. RESPIRATORY: Clear to auscultation. Breath sounds equal bilaterally. No wheezes, rales, or rhonchi. GASTROINTESTINAL: Abdomen soft, non-tender, nondistended. No hepato-splenomegaly, or palpable masses. No guarding. EXTREMITIES: No clubbing, cyanosis, or edema. No joint tenderness, effusion, or edema noted. BACK: Nontender without deformity or crepitance. No flank tenderness. NEURO: Alert, awake, pleasantly confused. No focal findings. SKIN: Dry, poor turgor. 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) Hyperlipidemia (Chronic) Chronic major depressive disorder (Chronic) Current smoker (Chronic 06/15/14) Essential hypertension (Chronic 01/28/17) 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) Weakness of left lower extremity (Chronic 11/25/17) Non-small cell carcinoma of lung (Chronic 02/11/18) Anxiety (Acute) Chronic back pain (Acute) Depression (Acute) Dyspnea (Acute) History of anemia (Acute) History of headache (Acute) Hypertension (Acute) Hypothyroidism (Acute) Peripheral vision loss (Acute) Port-a-cath in place (Acute) Postmenopausal (Acute) Recurrent sinusitis (Acute) Thrombus (Acute) Worsening headaches (Acute) Hyperlipidemia (Chronic) Chicken pox (Resolved) Measles (Resolved) Surgical History Status post tubal ligation Family History Brother Age: 63 Heart disease Diabetes mellitus Father Age: 91 Hypertension Hyperlipidemia Obese Diabetes mellitus Sister Age: 59 Leukemia Hong's thyroiditis Diabetes mellitus Social History marital status: Smoking Status: Former smoker alcohol intake: never substance use type: does not use Course Orders Ordered: ED Orders 08/29/18 16:52 CT head/brain wo con Stat Sodium Chloride (Normal Saline 0.9%) 1,000 mls @ 150 mls/hr IV CONT VALENTINE Last Admin: 08/29/18 17:25 Dose: 150 mls/hr Discontinued Medications Potassium Chloride (Potassium Chloride) 40 meq PO NOW ONE Stop: 08/29/18 18:21 Vital Signs - 8 hr 08/29/18 16:52 08/29/18 18:00 Temperature 97.1 F L Pulse Rate 85 Respiratory Rate 15 Blood Pressure [Right Arm] 128/76 Pulse Oximetry 95 MDM - Fall Medical Records Attestation: I reviewed the patient's medical records. Lab Data Result diagrams: 08/29/18 Unknown 08/29/18 Unknown Lab Results 08/29/18 08/29/18 08/29/18 Range/Units Unknown Unknown Unknown WBC 5.1 (4.5-11.0) X10^3/uL RBC 3.64 L (4.0-5.2) X10^6/uL Hgb 11.7 L (12.0-16.0) g/dL Hct 34.7 L (36-46) % MCV 95.5 (80-100) fL MCH 32.2 (26-34) PG MCHC 33.7 (30-36) % RDW 13.3 (11.6-14.8) % Plt Count 297 (150-400) X10^3/uL Neut % (Auto) 44.9 L (50-75) % Lymph % (Auto) 40.8 H (25-40) % [place] % (Auto) 11.5 (3-14) % Eos % (Auto) 0.8 L (2-4) % Baso % (Auto) 2.0 (0-2) % Neut # (Auto) 2300 L (9827-2378) /uL PT 94.3 H D (10.1-12.7) SECONDS INR 8.3 H* (0.9-1.3) APTT 90 H* D (26.4-36.2) SECONDS Sodium 142 (137-145) mmol/L Potassium 3.3 L (3.4-5.1) mmol/L Chloride 103 (98-107) mmol/L Carbon Dioxide 22 (22-32) mmol/L BUN 12 (7-17) mg/dL Creatinine 0.90 (0.52-1.04) mg/dL Estimated GFR > 60.0 (>60) mL/min BUN/Creatinine Ratio 13.3 (6-22) Glucose 75 L (80-110) mg/dL Calcium 9.5 (8.4-10.2) mg/dL Imaging Data CT scan - head: Radiologist's impression: [place] [address] CT Scan Report Signed Patient: Luz Elena Willett LMR#: [id number] : [id number]:[id number] Age/Sex: 63 / FDate of Service: 08/29/18 Loc: ED Accession Number: [id number] Procedure: CT head/brain wo con Ordering Provider: Manuel Bryson D.O. PROCEDURE: CT HEAD/BRAIN WO CON INDICATIONS: fall, head injury, on coumadin TECHNIQUE: Noncontrast 4.5 mm thick angled axial sections acquired from the foramen magnum to the vertex, with coronal and sagittal reformats. For radiation dose reduction, the following was used: automated exposure control, adjustment of mA and/or kV according to patient size. COMPARISON: [facility], CT, CT HEAD/BRAIN WO JANIE, 08/04/2018, 20:17. FINDINGS: Image quality: Excellent. CSF spaces: Basal cisterns are patent. No extra-axial fluid collections. The ventricles are symmetric in size and shape. Brain: No intracranial bleeds or masses. Right parietal resection cavity is present , as before. There is cerebral volume loss for age, with resultant ventricular and sulcal prominence. There are periventricular and deep white matter chronic small vessel ischemic changes. There is intracranial internal carotid artery atherosclerosis. Skull and face: Right parietal craniotomy has been performed. Calvarium and visualized facial bones otherwise appear intact, without suspicious lesions. Sinuses: Visualized sinuses and mastoids are clear. IMPRESSION: No acute process. Stable postsurgical sequelae. Dictated by: Alfa Sanches M.D. on 08/29/2018 at 17:15 Approved by: Alfa Sanches M.D. on 08/29/2018 at 17:17 MDM Narrative Medical decision making narrative: Patient is chronically ill and has taken a significant turn for the worse in the past 5 days. She has little to no oral intake given chronic illness and the addition of thrush. She is profoundly weak and clinically dehydrated and a significant fall risk, this exceeds the ability of her family and caregivers to help her at home, additionally her supratherapeutic INR put her at significant risk should she fall again. Discharge Plan Departure Patient Disposition: Admitted as Observation Clinical Impression: Adult failure to thrive, Acute dehydration, Supratherapeutic INR Admit Date/Time: 08/29/18 18:29 Admit Provider: Jim Maloney
[2018-08-29 17:19] LABS: PTT Partial Thromboplastin Tim 90 SECONDS (26.4-36.2)
--- NOTE | 2018-08-29 17:21 | ED_ITS ---
HPI - Fall General Chief Complaint: Fall Stated Complaint: GLF, on blood thinners Time Seen by Provider: 08/29/18 16:46 Source: patient and EMS Mode of arrival: EMS Limitations: altered mental status History of Present Illness HPI Narrative: 63-year-old former smoker with widespread metastatic disease presents by EMS for evaluation of generalized weakness and a fall. The patient denies any injuries and states she is pretty much at her baseline but family stresses she is quite a poor historian. She has been recently seen by her primary care provider and is being treated for oral candidiasis. She has a decreased appetite presumably due to chronic underlying medical problems as well as new thrush. Her most recent chemo was about 3 weeks ago. She wishes to continue treatment of her cancer but is a DNR. Patient has been eating minimally for quite some time, often less than 200 kilocalorie is per day but it has been significantly less over the past 5 days. She is really eating and drinking very minimally. At her last visit with Oncology she was started prednisone to help increase her appetite but this was unsuccessful. MD complaint: fall Onset (ago): minute(s) Fall witnessed: no Place fall occurred: home Loss of consciousness: none Related Data Home Medications Medication Instructions Recorded Confirmed calcium citrate-vitamin D3 1 tab PO QDAY #0 12/03/16 08/25/18 [Citracal Regular] ranitidine HCl 75 mg PO QDAY #0 12/10/17 08/25/18 docusate sodium [Colace] 100 mg PO QDAY #0 01/05/18 08/25/18 albuterol sulfate [Ventolin HFA] 2 puff INH Q4HP PRN 03/16/18 08/25/18 benzonatate [Tessalon Perles] 100 mg PO Q6HP PRN 03/16/18 08/25/18 lidocaine-prilocaine 1 mindy TOPICAL PRN PRN 03/16/18 08/25/18 melatonin 3 mg PO BEDTIME PRN 04/26/18 08/25/18 warfarin 5 mg PO DAILY 06/29/18 08/25/18 ondansetron 8 mg PO TID PRN 08/02/18 08/25/18 Previous Rx's Medication Instructions Recorded cetirizine 10 mg PO QDAY #30 tab 01/27/17 levetiracetam [Keppra] 500 mg PO BID #60 12/10/17 Disabled Parking Permit ea #1 12/24/17 bupropion HCl [Wellbutrin SR] 150 mg PO BID #180 tab 04/14/18 alprazolam 0.25 mg PO PRN PRN #10 tab 04/26/18 venlafaxine ER 75 mg 75 mg PO DAILY #30 cap 07/15/18 capsule,extended release 24 hr folic acid 1 mg PO DAILY #90 tab 07/29/18 levothyroxine [Unithroid] 150 mcg PO DAILY 90 Days #90 tab 08/23/18 nystatin 5 ml PO QID #100 ml 08/23/18 prednisone 5 mg PO DAILY #30 tab 08/23/18 fluconazole 200 mg tablet 200 mg PO DAILY #10 tab 08/25/18 Allergies Allergy/AdvReac Type Severity Reaction Status Date / Time bacitracin Allergy Mild ITCHING Verified 08/25/18 10:33 [From NEOSPORIN ([id number])] neomycin Allergy Mild ITCHING Verified 08/25/18 10:33 [From NEOSPORIN ([id number])] polymyxin B Allergy Mild ITCHING Verified 08/25/18 10:33 [From NEOSPORIN ([id number])] diphenhydramine AdvReac Mild ELEVATED Verified 08/25/18 10:33 [DIPHENHYDRAMINE] HEART RATE erythromycin base AdvReac Mild Difficulty Verified 08/25/18 10:33 [ERYTHROMYCIN BASE] Breathing caffeine [From CAFERGOT] AdvReac Unknown ELEVATED Verified 08/25/18 10:33 HR, MIGRAINE ergotamine [From CAFERGOT] AdvReac Unknown ELEVATED Verified 08/25/18 10:33 HR, MIGRAINE Review of Systems Review of Systems All systems reviewed & are unremarkable except as noted in HPI and below Constitutional Denies chills, Denies fever(s), Denies lethargy and Reports weakness Eyes Denies change in vision, Denies eye discharge, Denies irritation and Denies loss of vision ENT Ears, Nose, Mouth, and Throat: Denies change in voice, Denies neck pain and Denies sore throat Cardiovascular Denies chest pain, Denies irregular heart rhythm, Denies lightheadedness, Denies palpitations, Denies dyspnea, Denies dyspnea on exertion and Denies orthopnea Respiratory Denies cough, Denies dyspnea, Denies dyspnea on exertion and Denies wheezing Gastrointestinal Gastrointestinal: Denies abdominal pain, Denies change in bowel habits, Denies diarrhea, Denies nausea and Denies vomiting Genitourinary Denies hematuria, Denies flank pain, Denies urinary incontinence and Denies urinary urgency Musculoskeletal Denies neck pain Integumentary/Breasts Denies pruritus, Denies erythema, Denies rash and Denies wounds Neurologic Denies confusion, Denies loss of vision and Reports weakness Psychiatric Denies anxiety, Denies confusion, Denies depression, Denies homicidal ideation and Denies suicidal ideation Endocrine Denies palpitations Hematologic/Lymphatic Denies easy bruising Allergic/Immunologic Denies wheezing Exam Narrative Exam Narrative: GENERAL: 63-year-old chronically ill patient appears unwell. Clearly dehydrated with dry mucous membranes HEAD: Atraumatic. Normocephalic. No temporal or scalp tenderness. EYES: Pupils equal round and reactive. Extraocular motions intact. No scleral icterus. No injection or drainage. ENT: Nose without bleeding, purulent drainage or septal hematoma. Throat without erythema, tonsillar hypertrophy or exudate. Uvula midline. Airway patent. NECK: Trachea midline. No JVD or lymphadenopathy. Supple, nontender, no meningeal signs. CARDIOVASCULAR: Regular rate and rhythm without murmurs, gallops, or rubs. RESPIRATORY: Clear to auscultation. Breath sounds equal bilaterally. No wheezes , rales, or rhonchi. GASTROINTESTINAL: Abdomen soft, non-tender, nondistended. No hepato-splenomegaly , or palpable masses. No guarding. EXTREMITIES: No clubbing, cyanosis, or edema. No joint tenderness, effusion, or edema noted. BACK: Nontender without deformity or crepitance. No flank tenderness. NEURO: Alert, awake, pleasantly confused. No focal findings. SKIN: Dry, poor turgor. 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) Secondary malignant neoplasm of brain (Chronic) Hyperlipidemia (Chronic) Chronic major depressive disorder (Chronic) Current smoker (Chronic 06/15/14) Essential hypertension (Chronic 01/28/17) 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) Weakness of left lower extremity (Chronic 11/25/17) Non-small cell carcinoma of lung (Chronic 02/11/18) Anxiety (Acute) Chronic back pain (Acute) Depression (Acute) Dyspnea (Acute) History of anemia (Acute) History of headache (Acute) Hypertension (Acute) Hypothyroidism (Acute) Peripheral vision loss (Acute) Port-a-cath in place (Acute) Postmenopausal (Acute) Recurrent sinusitis (Acute) Thrombus (Acute) Worsening headaches (Acute) Hyperlipidemia (Chronic) Chicken pox (Resolved) Measles (Resolved) Surgical History Status post tubal ligation Family History Brother Age: 63 Heart disease Diabetes mellitus Father Age: 91 Hypertension Hyperlipidemia Obese Diabetes mellitus Sister Age: 59 Leukemia Hong's thyroiditis Diabetes mellitus Social History marital status: Smoking Status: Former smoker alcohol intake: never substance use type: does not use Course Orders Ordered: ED Orders 08/29/18 16:52 CT head/brain wo con Stat Sodium Chloride (Normal Saline 0.9%) 1,000 mls @ 150 mls/hr IV CONT VALENTINE Last Admin: 08/29/18 17:25 Dose: 150 mls/hr Discontinued Medications Potassium Chloride (Potassium Chloride) 40 meq PO NOW ONE Stop: 08/29/18 18:21 Vital Signs - 8 hr 08/29/18 16:52 08/29/18 18:00 Temperature 97.1 F L Pulse Rate 85 Respiratory Rate 15 Blood Pressure [Right Arm] 128/76 Pulse Oximetry 95 MDM - Fall Medical Records Attestation: I reviewed the patient's medical records. Lab Data Result diagrams: 08/29/18 Unknown 08/29/18 Unknown Lab Results 08/29/18 08/29/18 08/29/18 Range/Units Unknown Unknown Unknown WBC 5.1 (4.5-11.0) X10^3/uL RBC 3.64 L (4.0-5.2) X10^6/uL Hgb 11.7 L (12.0-16.0) g/dL Hct 34.7 L (36-46) % MCV 95.5 (80-100) fL MCH 32.2 (26-34) PG MCHC 33.7 (30-36) % RDW 13.3 (11.6-14.8) % Plt Count 297 (150-400) X10^3/uL Neut % (Auto) 44.9 L (50-75) % Lymph % (Auto) 40.8 H (25-40) % [place] % (Auto) 11.5 (3-14) % Eos % (Auto) 0.8 L (2-4) % Baso % (Auto) 2.0 (0-2) % Neut # (Auto) 2300 L (4193-1709) /uL PT 94.3 H D (10.1-12.7) SECONDS INR 8.3 H* (0.9-1.3) APTT 90 H* D (26.4-36.2) SECONDS Sodium 142 (137-145) mmol/L Potassium 3.3 L (3.4-5.1) mmol/L Chloride 103 (98-107) mmol/L Carbon Dioxide 22 (22-32) mmol/L BUN 12 (7-17) mg/dL Creatinine 0.90 (0.52-1.04) mg/dL Estimated GFR > 60.0 (>60) mL/min BUN/Creatinine Ratio 13.3 (6-22) Glucose 75 L (80-110) mg/dL Calcium 9.5 (8.4-10.2) mg/dL Imaging Data CT scan - head: Radiologist's impression: [place] [address] CT Scan Report Signed Patient: Luz Elena Willett LMR#: [id number] : [id number]:[id number] Age/Sex: 63 / FDate of Service: 08/29/18 Loc: ED Accession Number: [id number] Procedure: CT head/brain wo con Ordering Provider: Manuel Bryson D.O. PROCEDURE: CT HEAD/BRAIN WO CON INDICATIONS: fall, head injury, on coumadin TECHNIQUE: Noncontrast 4.5 mm thick angled axial sections acquired from the foramen magnum to the vertex, with coronal and sagittal reformats. For radiation dose reduction, the following was used: automated exposure control, adjustment of mA and/or kV according to patient size. COMPARISON: [facility], CT, CT HEAD/BRAIN WO JANIE, 08/04/2018, 20:17. FINDINGS: Image quality: Excellent. CSF spaces: Basal cisterns are patent. No extra-axial fluid collections. The ventricles are symmetric in size and shape. Brain: No intracranial bleeds or masses. Right parietal resection cavity is present , as before. There is cerebral volume loss for age, with resultant ventricular and sulcal prominence. There are periventricular and deep white matter chronic small vessel ischemic changes. There is intracranial internal carotid artery atherosclerosis. Skull and face: Right parietal craniotomy has been performed. Calvarium and visualized facial bones otherwise appear intact, without suspicious lesions. Sinuses: Visualized sinuses and mastoids are clear. IMPRESSION: No acute process. Stable postsurgical sequelae. Dictated by: Alfa Sanches M.D. on 08/29/2018 at 17:15 Approved by: Alfa Sanches M.D. on 08/29/2018 at 17:17 MDM Narrative Medical decision making narrative: Patient is chronically ill and has taken a significant turn for the worse in the past 5 days. She has little to no oral intake given chronic illness and the addition of thrush. She is profoundly weak and clinically dehydrated and a significant fall risk, this exceeds the ability of her family and caregivers to help her at home, additionally her supratherapeutic INR put her at significant risk should she fall again. Discharge Plan Departure Patient Disposition: Admitted as Observation Clinical Impression: Adult failure to thrive, Acute dehydration, Supratherapeutic INR Admit Date/Time: 08/29/18 18:29 Admit Provider: Jim Maloney
[2018-08-29] MEDS: SODIUM CHLORIDE 0.9% 1,000 ML 150 ML IV (17:25)
[2018-08-29 18:00] VITALS: BP 128/76; PULSE 85; RESP 15; O2SAT 95
[2018-08-29 18:30] VITALS: BP 126/68; PULSE 84; RESP 16; O2SAT 97
[2018-08-29] MEDS: POTASSIUM CHLORIDE 20 MEQ/15 ML UDC 40 MEQ PO (18:46)
[2018-08-29 19:30] VITALS: BP 138/76; PULSE 89; RESP 19; TEMP 36.6; O2SAT 96
[2018-08-29 19:36] VITALS: BMI 24.4
--- NOTE | 2018-08-29 19:59 | PC.NURSE ---
PT to acute care from ER. Transferred via stretcher/slider board to bed. Daughter and caregiver/friend present for admission. Pt alert, intermittently disoriented, denies pain. Daughter reports lower legs/feet very sensitive and can be painful to the touch. Bed alarm on. Meds/History verified with daughter.
[2018-08-29] MEDS: levETIRAcetam 250 MG TABLET 500 MG PO (20:10)
[2018-08-29] MEDS: SODIUM CHLORIDE 0.9% 1,000 ML 125 ML IV (20:21)
[2018-08-29 21:11] LABS: Blood Urea Nitrogen 12 mg/dL (7-17); Calcium 9.1 mg/dL (8.4-10.2); Carbon Dioxide 24 mmol/L (22-32); Chloride 105 mmol/L (98-107); Estimated Glomerular Filt Rate > 60.0 mL/min (>60); Glucose 68 mg/dL (80-110); HEMOLYSIS 16 (0-50); Potassium 3.4 mmol/L (3.4-5.1); Sodium 142 mmol/L (137-145)
[2018-08-29 21:15] LABS: Add Manual Diff / Slide Review NO; Basophils Percent Auto 1.1 % (0-2); Eosinophils Percent Auto 0.8 % (2-4); Hematocrit 33.1 % (36-46); Hemoglobin 11.3 g/dL (12.0-16.0); Lymphocytes Percent Auto 31.8 % (25-40); Mean Corpuscular Hemoglobin 32.3 PG (26-34); Monocytes Percent Auto 13.1 % (3-14); Neutrophils Absolute Auto 3400 /uL (3000-5900); Neutrophils Percent Auto 53.2 % (50-75); Platelet Count 252 X10^3/uL (150-400); Red Blood Cell Count 3.48 X10^6/uL (4.0-5.2); Red Cell Distribution Width 13.3 % (11.6-14.8); White Blood Cell Count 6.4 X10^3/uL (4.5-11.0)
[2018-08-30] VITALS (8 sets, daily range): BP systolic 127–139; BP diastolic 63–76; PULSE 82–93; RESP 17–22; TEMP 36.3–36.7; O2SAT 92–98; BMI 24.5
[2018-08-30] MEDS: SODIUM CHLORIDE 0.9% 1,000 ML 125 ML IV (00:22)
--- NOTE | 2018-08-30 07:40 | PM.HP.1 ---
History of Present Illness Date Patient Seen: 08/30/18 Time Patient Seen: 07:40 Chief complaint: GLF, on blood thinners Narrative: 63-year-old female patient with stage IV lung cancer with metastatic disease to lymph node and brain. She has been undergoing aggressive chemotherapy treatment. Her last chemotherapy was a number of weeks ago. This was a new chemo regimen for her. She was post have a no other dose last week. Since her 1st toe she has not been feeling well. She has had persistent nauseousness and weakness. She has not been eating and has had a gradual slow decline. Her daughter is a nurse is her primary whiting machine operator and her historian as she is unable to provide a reliable history. She was seen and evaluated in the office a few days before admission because of ongoing weakness and concerns in regard to not wanting to eat. Her oral candidiasis as well as persistent weight loss and not feeling well. We reviewed her care treatment plans and options she was discussed that time that there ongoing care and concerns she is in no code status. But she still wants to treat aggressively her cancer. Her symptoms progressed over the weekend. With increasing weakness and falls and difficulty with the taking care of the patient at home. There was concerns for infection weakness and ongoing and worsening disease she was brought to the emergency department for evaluation. On my examination patient is a difficult historian with confusion. She is not exactly sure why she is here in the hospital but she does state she says she is weak she is not hungry. She has been having falls. She says she has intermittent headache. Intermittent blurry vision. She says she has a horrible taste in her mouth. And a sore mouth and dry mouth. She is not complaining of abdominal pain. She is having bowel movements and no dysuria. 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) Weakness of left lower extremity (Chronic 11/25/17) Non-small cell carcinoma of lung (Chronic 02/11/18) Anxiety (Acute) Chronic back pain (Acute) Depression (Acute) Dyspnea (Acute) History of anemia (Acute) History of headache (Acute) Hypertension (Acute) Hypothyroidism (Acute) Peripheral vision loss (Acute) Port-a-cath in place (Acute) Postmenopausal (Acute) Recurrent sinusitis (Acute) Thrombus (Acute) Worsening headaches (Acute) Hyperlipidemia (Chronic) Chicken pox (Resolved) Measles (Resolved) Surgical History History of brain surgery (Acute) Status post tubal ligation Family & Social History Family History: Reviewed 08/30/18 by Dank Leong MD Social History: household members friend(s),caregiver Prior Living Arrangements House Safety & Behavioral: Feels Safe in Current Yes Environment Been Physically Hurt or No Threatened By a Person Suicidal Ideation Description None Tobacco & Substance use: Smoking Status Former smoker alcohol intake never alcohol intake frequency 0-2 drinks per day Substance Use Type marijuana Meds Home Medications Medication Instructions Recorded Confirmed Type calcium citrate-vitamin D3 1 tab PO QDAY #0 12/03/16 08/29/18 History [Citracal Regular] cetirizine 10 mg PO QDAY #30 tab 01/27/17 08/29/18 Rx levetiracetam [Keppra] 500 mg PO BID #60 12/10/17 08/29/18 Rx ranitidine HCl 75 mg PO QDAY #0 12/10/17 08/29/18 History docusate sodium [Colace] 100 mg PO QDAY #0 01/05/18 08/29/18 History albuterol sulfate [Ventolin HFA] 2 puff INH Q4HP PRN 03/16/18 08/29/18 History benzonatate [Tessalon Perles] 100 mg PO Q6HP PRN 03/16/18 08/29/18 History lidocaine-prilocaine 1 mindy TOPICAL PRN PRN 03/16/18 08/29/18 History bupropion HCl [Wellbutrin SR] 150 mg PO BID #180 tab 04/14/18 08/29/18 Rx alprazolam 0.25 mg PO PRN PRN #10 tab 04/26/18 08/29/18 Rx melatonin 3 mg PO BEDTIME PRN 04/26/18 08/29/18 History warfarin 5 mg PO DAILY 06/29/18 08/29/18 History venlafaxine ER 75 mg 75 mg PO DAILY #30 cap 07/15/18 08/29/18 Rx capsule,extended release 24 hr folic acid 1 mg PO DAILY #90 tab 07/29/18 08/29/18 Rx ondansetron 8 mg PO TID PRN 08/02/18 08/29/18 History levothyroxine [Unithroid] 150 mcg PO DAILY 90 Days #90 tab 08/23/18 08/29/18 Rx fluconazole 200 mg tablet 200 mg PO DAILY #10 tab 08/25/18 08/29/18 Rx hydrocodone-acetaminophen 1 tab PO Q4H PRN 08/29/18 08/29/18 History prednisone 2.5 mg PO DAILY 08/29/18 08/29/18 History Allergies Allergy/AdvReac Type Severity Reaction Status Date / Time bacitracin Allergy Mild ITCHING Verified 08/29/18 18:47 [From NEOSPORIN ([id number])] neomycin Allergy Mild ITCHING Verified 08/29/18 18:47 [From NEOSPORIN ([id number])] polymyxin B Allergy Mild ITCHING Verified 08/29/18 18:47 [From NEOSPORIN ([id number])] diphenhydramine AdvReac Mild ELEVATED Verified 08/29/18 18:47 [DIPHENHYDRAMINE] HEART RATE erythromycin base AdvReac Mild Difficulty Verified 08/29/18 18:47 [ERYTHROMYCIN BASE] Breathing caffeine [From CAFERGOT] AdvReac Unknown ELEVATED Verified 08/29/18 18:47 HR, MIGRAINE ergotamine [From CAFERGOT] AdvReac Unknown ELEVATED Verified 08/29/18 18:47 HR, MIGRAINE Exam Vital Signs (past 8 hours): - 08/30/18 00:14 08/30/18 03:45 Temperature 97.6 F 98.1 F Pulse Rate 87 90 Respiratory Rate 22 18 Blood Pressure 139/73 130/63 Pulse Oximetry 96 93 Oxygen Delivery Method Room Air Narrative Exam Narrative: Gen.: Alert unsure of date time and place. She has lost a significant amount of weight HEENT: Pupils equal round and reactive. She has temporal wasting. Her oral mucosa is dry and she has a whiteitis paste on her tongue Cardio: S1-S2 regular rate and rhythm no murmurs appreciated. Respiratory: Lungs show normal respiratory effort this meniscus breath sounds at bases Abdomen: Soft no appreciable tenderness Extremities: Generalized weakness. Mild edema lower extremities Neurologic: Patient is confused. She has no lateralization of weakness in her upper extremities and normal muscles of facial expression Objective Labs Result Diagrams: 08/29/18 Unknown 08/29/18 Unknown Labs: Laboratory Results - last 24 hr 08/29/18 08/29/18 08/29/18 20:52 20:52 Unknown WBC 6.4 5.1 RBC 3.48 L 3.64 L Hgb 11.3 L 11.7 L Hct 33.1 L 34.7 L MCV 95.0 95.5 MCH 32.3 32.2 MCHC 34.0 33.7 RDW 13.3 13.3 Plt Count 252 297 Neut % (Auto) 53.2 44.9 L Lymph % (Auto) 31.8 40.8 H [place] % (Auto) 13.1 11.5 Eos % (Auto) 0.8 L 0.8 L Baso % (Auto) 1.1 2.0 Neut # (Auto) 3400 2300 L PT INR APTT Sodium 142 Potassium 3.4 Chloride 105 Carbon Dioxide 24 BUN 12 Creatinine 0.80 Estimated GFR > 60.0 BUN/Creatinine Ratio 15.0 Glucose 68 L Calcium 9.1 08/29/18 08/29/18 Unknown Unknown WBC RBC Hgb Hct MCV MCH MCHC RDW Plt Count Neut % (Auto) Lymph % (Auto) [place] % (Auto) Eos % (Auto) Baso % (Auto) Neut # (Auto) PT 94.3 H D INR 8.3 H* APTT 90 H* D Sodium 142 Potassium 3.3 L Chloride 103 Carbon Dioxide 22 BUN 12 Creatinine 0.90 Estimated GFR > 60.0 BUN/Creatinine Ratio 13.3 Glucose 75 L Calcium 9.5 Assessment & Plan Plan: Assessment/Plan Narrative: Stage IV lung cancer with metastatic disease to lymph node and brain. Patient currently receiving chemotherapy patient is weak dehydrated and malnourished. Patient is falling and confused. She will be admitted to the hospital for IV fluid rehydration. And treatment of underlying diagnosis is. Patient is currently a no code status. Due to significant disease burden. Ongoing discussion with patient and family about end of life care wishes and hospice. Metabolic encephalopathy acute. Patient is confused disoriented and a poor historian. This is worsened by her recent illness of dehydration inability to eat. Chemotherapy and disease burden. Brain metastases with craniotomy. She is on Keppra for seizure prophylaxis. She has been recently placed on steroids to help improve appetite. This does not seem to be helping we will continue with her Keppra and steroid dose. Significant malnutrition. Severe. Patient has lost weight continually as an outpatient. Of nutritional evaluation. Head working with eating. Will provide antiemetics as needed. And place her on a proton pump inhibitor for gastroesophageal prophylaxis. Hypokalemia. Patient's potassium is low. Will continue with potassium replacement and monitor closely potassium levels. Dehydration. Will continue with IV fluid hydration with dextrose containing IV fluid. Super therapeutic INR. INR was 9. We will recheck her INR today for level. And hold her warfarin at this time and correct as needed. Disposition plan. Patient will be in the hospital least 2-3 days for further hydration replacement of her electrolytes seen of her encephalopathy will improve it. And also making advance care plans such is hospice another palliative care resources. Quality VTE Deep Vein Thrombosis/Pulmonary Embolism Present on Admission: No
[2018-08-30] MEDS: DEXTROSE 5%-0.45% NS 1,000 ML 150 ML IV ×3 (08:48→21:27)
[2018-08-30] MEDS: LEVOTHYROXINE 75 MCG TABLET 150 MCG PO (08:49)
[2018-08-30] MEDS: levETIRAcetam 250 MG TABLET 500 MG PO ×2 (08:50→20:50)
[2018-08-30 08:58] LABS: BUN Creatinine Ratio 12.9 (6-22); Blood Urea Nitrogen 9 mg/dL (7-17); Calcium 8.8 mg/dL (8.4-10.2); Carbon Dioxide 22 mmol/L (22-32); Chloride 107 mmol/L (98-107); Estimated Glomerular Filt Rate > 60.0 mL/min (>60); Glucose 65 mg/dL (80-110); HEMOLYSIS < 15 (0-50); Potassium 3.3 mmol/L (3.4-5.1); Sodium 143 mmol/L (137-145)
[2018-08-30 09:00] LABS: Prothrombin Time 118.1 SECONDS (10.1-12.7)
[2018-08-30] MEDS: predniSONE 2.5 MG TABLET PO (09:06)
[2018-08-30] MEDS: buPROPion SR 150 MG TAB PO ×2 (09:07→20:50)
[2018-08-30 09:10] LABS: INR 10.4 (0.9-1.3)
--- NOTE | 2018-08-30 11:50 | PT.IIE ---
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) Weakness of left lower extremity (Chronic 11/25/17) Non-small cell carcinoma of lung (Chronic 02/11/18) Anxiety (Acute) Chronic back pain (Acute) Depression (Acute) Dyspnea (Acute) History of anemia (Acute) History of headache (Acute) Hypertension (Acute) Hypothyroidism (Acute) Peripheral vision loss (Acute) Port-a-cath in place (Acute) Postmenopausal (Acute) Recurrent sinusitis (Acute) Thrombus (Acute) Worsening headaches (Acute) Hyperlipidemia (Chronic) Chicken pox (Resolved) Measles (Resolved) Physical Therapy Inpatient Evaluation/Re-Eval M1 PT/OT-IP Prior Functional Status Start: 08/30/18 12:43 Freq: NEEDED Status: Active Protocol: Document 08/30/18 11:50 DLM (Rec: 08/30/18 13:02 DLM [id number]) Medical Review Prior Functional Status Medical History Reviewed Yes Communication WFL, chart indicates pt has hx decreased vision with right eye hemianopsia Mobility and Gait Independent without device per pt Activities of Daily Living and IADL's Independent per pt Prior Functional Level (Other details) Eating has been affected by dental issues and associated mouth pain, chart indicated pt recently has had caregiver assist while undergoing chemo treatments, pt's impaired cognition makes it hard for her to provide baseline information Social History Household Members friend(s) caregiver Living Arrangements House Additional Social History Comment pt unable to give me this information, no family present this visit M2 PT-IP Current Condition Start: 08/30/18 12:43 Freq: NEEDED Status: Active Protocol: Document 08/30/18 11:50 DLM (Rec: 08/30/18 13:02 DLM [id number]) Physical Therapy Current Condition Current Condition Evaluation Date 08/30/18 Treatment Diagnosis impaired gait, fall at home Onset Date 08/29/18 Precautions Other Precautions elevated INR, fall risks M3 PT-IP Subjective Start: 08/30/18 12:43 Freq: NEEDED Status: Active Protocol: Document 08/30/18 11:50 DLM (Rec: 08/30/18 13:02 DLM [id number]) Subjective Physical Therapy Visit Type Type Initial Evaluation Visit Start Time 11:00 Visit Stop Time 11:50 Total Visit Minutes 50 Number of SHOE SPRAYER Visits 0 Physical Therapy Visit Comments Patient Comments Her daughter put a reminder on her phone that beeps and reminders her to drink water, she does not know where her phone is, she is concerned because she wants to call her Mother Patient Goals unable to state a goal Therapy Pain Assessment Pain When Pain Assessed At Rest Pain Present Pain Present Denied Pain M4 PT-IP Mobility and Gait Start: 08/30/18 12:43 Freq: NEEDED Status: Active Protocol: Document 08/30/18 11:50 DLM (Rec: 08/30/18 13:02 DLM [id number]) PT-Bed Mobility Assessment Rolling Type of Rolling Roll to Left Level of Assist Standby Assistance Supine to Sit Supine to Sit Minimal Assistance Scooting Scooting to Edge of Bed Standby Assistance PT-Transfer Assessment Sit to and From Stand Sit to and from Stand Minimal Assistance Use of Upper Extremities Equipment Transfer Assistive Device Gait Belt Front Wheeled Walker Transfers Transfer Destination Chair Bedside Commode Transfer Technique Stand Step Pivot Transfer Ability Level of Assist Minimal Assistance Comments Mobility Comments she gets confused during tasks and needs cues to complete the task, she stated she needed to go to the bathroom before getting out of bed but once seated edge of bed stated she does not need to void, once up in recliner she had urgent need to void and was incontinent while getting to the bedside commode. She was aware of her incontinence. Pt became very nauseated while up on bedside commode and had dry heaves. Pt returned to the recliner to rest. Chair alarm in use. Gait Assessment Comments Gait Comments did not attempt gait this visit due to severe nausea and dry heaves with transfers PT-Balance Assessment Sitting Balance and Reactions Static Sitting Balance Ability Good Dynamic Sitting Balance Ability Fair Standing Balance and Reactions Static Standing Balance Ability Fair Dynamic Standing Balance Ability Fair Device Used FWW M5 PT-IP Objective Assessments Start: 08/30/18 12:43 Freq: NEEDED Status: Active Protocol: Document 08/30/18 11:50 DLM (Rec: 08/30/18 13:02 DLM [id number]) Orientation Orientation/Cognition Level of Alertness Alert Orientation Name Year Language Function Ability No Deficits Noted Safety Awareness Decreased Safety Awareness Memory Description Short Term Impaired Assisted Impaired Gross Range of Motion Upper Extremity ROM Assessment Within Functional Limits Lower Extremity ROM Assessment Within Functional Limits Strength Upper Extremity Strength Assessment Within Functional Limits Lower Extremity Strength Knee 4+/5 Comments Strength Comments she has difficulty following instructions for manual muscle testing so unable to complete it Coordination Assessment Gross Coordination Gross Coordination WNL Sensation Assessment Sensation Light Touch Intact Proprioception (Position) Intact Comments Sensation Comments chart notes indicated hx of LE hypersensativity but none reported at this time, she denies numbness/tingling Muscle Tone Muscle Tone WNL Yes M7 PT-IP Assessment and Plan Start: 08/30/18 12:43 Freq: NEEDED Status: Active Protocol: Document 08/30/18 11:50 DLM (Rec: 08/30/18 13:02 DLM [id number]) PT Summary Assessment and Plan Potential Rehabilitation Potential Fair Status of Condition at Evaluation Unstable Summary Impairments Strength Balance Bed Mobility Transfers Gait Activity Tolerance Assessment Summary She has low activity tolerance this visit with nausea and dry heaving with transfers. She was able to get up to recliner using the fWW and one person assist. It is unclear how much assist she has at home. No family/caregiver here at this time. She would need 24/7 assist to discharge home. She would be a candidate for SNF if she does not have enough assist at home. Goals Bed Mobility Goal Independent Transfer Goal Standby Assistance Gait Goal Contact Guard Assistance Front Wheel Walker Gait Distance 100 feet Days to Meet Goals 4 Frequency of Treatment Frequency Of Treatment Once a Day Treatment Plan Physical Therapy Treatment Plan Bed Mobility Training Transfer Training Gait Training Therapeutic Exercise Balance Retraining Discharge Planning Neuromuscular Re-ed Recommendations To Nursing Amount of Assist Needed 1 Person Assist Discharge Recommendations PT Discharge Recommendations Home with 24/7 Assist SNF Rehab
--- NOTE | 2018-08-30 12:34 | CM.DANOTE ---
DCP/Assessment: Reviewed chart. Patient is a 63yr old female admitted to [facility] after GLF Patient with h/o Lung CA with mets to brain. Patient actively being treated at [facility]. PCP is Dr. Leong and Primary payor is 1)Medicare 2)[employer]. Met with patient explained CM/SW role. Patient resting comfortably in bed at time of visit. Patient reports that she resides with roommate/caregiver Gopal in [place]. Patient uses walker on as needed basis and has wheelchair. During interview patient's daughter/Kimberlyn arrived. Patient reports that Kimberlyn is her DPOA. 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 Patient reports that she feels like she has been falling a lot lately. Daughter reports that patient has had off/on confusion and that she is only aware of 2 falls. At this time d/c needs unknown. Patient would benefit from PT/OT evaluations during hospitalization to assist in determining safest plan. Patient complains of soreness in her shoulders and daughter reports that patient has been primarily in bed the last few weeks. Left vm with Kassidy SOL at ONC re: above. Patient currently DNR and copy of POLST in paper chart. Unclear on whether or not patient would be appropriate or interested in Hospice informational visit? MD and ONC to decide. P: Pending outcome of hospitalization. Anticipate home vs. SNF for rehab vs. home with home health. Continue to follow closely. SWETA Sanders Discharge Planning/Care Management CM Discharge Assessment Start: 08/30/18 12:21 Freq: Status: Active Protocol: Document 08/30/18 12:21 KJS (Rec: 08/30/18 12:34 KJS [id number]) Discharge Planning Assessment Assigned Garment Sorter SWETA Sanders Contact Information Kimberlyn (daughter) ph# [phone] Advance Directives? Yes Advance Directives on File Yes: POLST available History Provided By Patient Family Member Has Patient been admitted in last 30 No days? Prior Living Arrangements House Household Members friend(s) caregiver Type of transporation used prior to Relies on Others admit Comment Patient reports that she has peg driver's license but currently does not drive. Independent with ADL's Yes Is patient alert and oriented? Unclear at this time. Caregiver for Another No DME Already Rented / Owned FWW / Walker Comment D/C unknown at this time. Discharge Plan Home Transportation Arrangement Family/caregiver to provide transport. Referrals Initiated Other Whiteboard Updated in Patient Room with Yes name and ext. # of Garment Sorter Review Status In Process Please Provide Date Initial DC 08/30/18 Assessment Was Performed Next Review Type Continued Stay Review
[2018-08-30] MEDS: FLUCONAZOLE 100 MG TABLET 200 MG PO (13:09)
[2018-08-30] MEDS: PHYTONADIONE (VIT K1) 5 MG TABLET PO (13:56)
--- NOTE | 2018-08-30 14:04 | PC.NURSE ---
Pt mostly sleeping, appears weak and tired, reports pain in hips and noted bruising on left hip, but declined pain meds. No open areas noted. Mild nausea when first up. Declines food and taking only sips of water at this time. C/of pain in her mouth from loose teeth which she states needs pulling - she has an appt with oral surgeon coming up. Mostly just wants to be left alone to sleep at this time. Spent two hours sitting up in chair around lunchtime. @ person assist with much cueing to get her back to bed. Gait belt utilized due to her inablity to coordinate her movements. Pt's INR elevated. Given Vit K per MD order.
[2018-08-30] MEDS: HYDROCODONE/ACET 5/325 TABLET 1 TAB PO (17:04)
[2018-08-30] MEDS: POTASSIUM CHLORIDE 20 MEQ/15 ML UDC PO (17:06)
[2018-08-30] MEDS: ONDANSETRON 4 MG/2 ML INJ IV (17:14)
[2018-08-31] VITALS (9 sets, daily range): BP systolic 116–147; BP diastolic 68–83; PULSE 84–106; RESP 16–20; TEMP 36.2–36.8; O2SAT 94–99
--- NOTE | 2018-08-31 | DI.US.S_ITS ---
PROCEDURE: US PELVIC COMPLETE INDICATIONS: ADNEXAL MASS ON CT TECHNIQUE: Real-time scanning was performed of the pelvic organs, with image documentation. Additional endovaginal scanning was necessary due to incomplete visualization of the adnexal and endometrial structures by transabdominal scanning. COMPARISON: Outside Film, CT, CT CHEST ABDOMEN PELVIS WITH CONTRAST, 11/11/2017, 1:59. [facility], CT, CHEST/ABD/PEL WITH CONTRAST, 02/01/2018, 10:02. [facility], CT, CT CHEST ABD PEL W CON, 07/01/2018, 7:49. FINDINGS: Transabdominal scanning: Limited scanning through the kidneys shows no hydronephrosis. No pathologic free abdominal or pelvic fluid. Endovaginal scanning: Uterus: Uterus is normal in size at the 3.4 x 6.1 x 6.4 cm, anteverted. The endometrium measures 11.8 mm in combined thickness. Note is made of a left anterior intramural 2.0 x 1.3 x 2.6 cm fibroid Ovaries: Not seen on the right. At the left adnexa there is a masslike structure currently measuring 4.8 x 4.1 x 4.7 cm and previously having measured 5.1 x 4.9 x 4.0 cm. A solid complex masslike structure with minimal internal vascularity presumably is ovarian in origin given that it moves separately from the uterus. IMPRESSION: A prior CT from 02/01/18 at identified pulmonary, left hilar, and anterior mediastinal masses. The it also identified a left adnexal mass stable from October 2017. Overall considering differences in CT and ultrasound techniques this structure does not appear to change. Its etiology is uncertain, and it is possible that this represents an exophytic subserosal fibroid directed cephalad from the left low uterine segment but it appears to move separate from the uterus during sonographic imaging with sonographic palpation. Followup by sequential ultrasound at 6 month intervals for 1 additional year is recommended. Alternatively, if PET CT scanning is anticipated attention to this area during that examination would be recommended. Dictated by: Madhu Quiñones M.D. on 08/31/2018 at 9:51 Approved by: Madhu Quiñones M.D. on 08/31/2018 at 9:59
[2018-08-31] MEDS: DEXTROSE 5%-0.45% NS 1,000 ML 150 ML IV (04:09)
[2018-08-31 06:36] LABS: Add Manual Diff / Slide Review NO; Basophils Percent Auto 1.4 % (0-2); Eosinophils Percent Auto 0.9 % (2-4); Hematocrit 29.6 % (36-46); Hemoglobin 10.6 g/dL (12.0-16.0); Lymphocytes Percent Auto 42.2 % (25-40); Mean Corpuscular HGB Conc 35.9 % (30-36); Mean Corpuscular Hemoglobin 33.8 PG (26-34); Mean Corpuscular Volume 94.1 fL (80-100); Monocytes Percent Auto 16.6 % (3-14); Neutrophils Absolute Auto 1800 /uL (3000-5900); Neutrophils Percent Auto 38.9 % (50-75); Platelet Count 223 X10^3/uL (150-400); Red Blood Cell Count 3.15 X10^6/uL (4.0-5.2); Red Cell Distribution Width 13.7 % (11.6-14.8); White Blood Cell Count 4.6 X10^3/uL (4.5-11.0)
[2018-08-31 06:56] LABS: Prothrombin Time 66.9 SECONDS (10.1-12.7)
[2018-08-31 06:59] LABS: BUN Creatinine Ratio 7.1 (6-22); Blood Urea Nitrogen 5 mg/dL (7-17); Calcium 8.6 mg/dL (8.4-10.2); Carbon Dioxide 24 mmol/L (22-32); Chloride 107 mmol/L (98-107); Estimated Glomerular Filt Rate > 60.0 mL/min (>60); Glucose 124 mg/dL (80-110); HEMOLYSIS 42 (0-50); Potassium 3.3 mmol/L (3.4-5.1); Sodium 141 mmol/L (137-145)
[2018-08-31] MEDS: PANTOPRAZOLE 20 MG TABLET PO (07:09)
[2018-08-31] MEDS: LEVOTHYROXINE 75 MCG TABLET 150 MCG PO (07:09)
--- NOTE | 2018-08-31 07:45 | PM.PN.1 ---
Subjective Date Patient Seen: 08/31/18 Time Patient Seen: 07:45 Interval history: Patient doing okay today. States yesterday was boring. Has not really got up and walked much. She says she feels unsteady and afraid to fall. She still has no appetite. Although she states her mouth is feeling a little bit better and less sore. She still ambivalent about food and has not much appetite. Exam Vital Signs (past 8 hours): - 08/31/18 00:20 08/31/18 04:42 Temperature 97.8 F 98.0 F Pulse Rate 106 H 89 Respiratory Rate 20 18 Blood Pressure 147/82 H 116/68 Pulse Oximetry 94 96 Oxygen Delivery Method Room Air Oxygen Flow Rate 0 Narrative Exam Narrative: Gen.: Alert recognizes me today know she is in [facility]. HEENT: Pupils equal round mass reactive. Oral mucosa is dry. Widest crust on the tongue is improved. Neck is supple Cardio: S1-S2 regular rate and rhythm Respiratory: Normal respiratory effort. Decreased breath sounds at lung bases Abdomen: Soft nontender mildly distended no rebound or guarding Extremities: Trace edema in the lower extremities full range of motion Objective Labs Result Diagrams: 08/31/18 06:20 08/31/18 06:20 Labs: Laboratory Results - last 24 hr 08/30/18 08/30/18 08/31/18 08:30 08:30 06:20 WBC 4.6 RBC 3.15 L Hgb 10.6 L Hct 29.6 L MCV 94.1 MCH 33.8 MCHC 35.9 RDW 13.7 Plt Count 223 Neut % (Auto) 38.9 L Lymph % (Auto) 42.2 H [place] % (Auto) 16.6 H Eos % (Auto) 0.9 L Baso % (Auto) 1.4 Neut # (Auto) 1800 L PT 118.1 H D INR 10.4 H* Sodium 143 Potassium 3.3 L Chloride 107 Carbon Dioxide 22 BUN 9 Creatinine 0.70 Estimated GFR > 60.0 BUN/Creatinine Ratio 12.9 Glucose 65 L Calcium 8.8 08/31/18 08/31/18 06:20 06:20 WBC RBC Hgb Hct MCV MCH MCHC RDW Plt Count Neut % (Auto) Lymph % (Auto) [place] % (Auto) Eos % (Auto) Baso % (Auto) Neut # (Auto) PT 66.9 H D INR 6.0 H* Sodium 141 Potassium 3.3 L Chloride 107 Carbon Dioxide 24 BUN 5 L Creatinine 0.70 Estimated GFR > 60.0 BUN/Creatinine Ratio 7.1 Glucose 124 H Calcium 8.6 Assessment & Plan Plan: Assessment/Plan Narrative: Stage IV lung cancer with metastatic disease to lymph node and brain. Patient currently receiving chemotherapy patient is weak dehydrated and malnourished. Patient is falling and confused. Mild improvement of confusion. Work with physical therapy. Long discussion with daughter today. She is unsure after talking with oncology yesterday whether patient will continue to be able to tolerate chemotherapy. They would like to have a discussion with hospice. And may consider going that route. We will have social media marketing manager call and discuss with her about either hospice or short-term [facility] stay for ongoing care needs. Metabolic encephalopathy acute. Patient is confused disoriented and a poor historian. This is worsened by her recent illness of dehydration inability to eat. Chemotherapy and disease burden. Patient's confusion is mildly improved today. She remembers our discussion yesterday. knows she is now at [facility]. Supratherapeutic INR. Patient was placed on warfarin after she had a port placed and had a blood cough. This was done by Oncology. I guess it has been continued on since that time. She may be able to stop her INR we will discuss with Oncology. Brain metastases with craniotomy. She is on Keppra for seizure prophylaxis. No recent changes and new disease on CT scan. Significant malnutrition. Severe. Patient has lost weight continually as an outpatient. Obtain a nutritional evaluation. Continue with prednisone Will provide antiemetics as needed. And place her on a proton pump inhibitor for gastroesophageal prophylaxis. Hypokalemia. Patient's potassium is low. Increase her potassium dose today to 40 mEq twice daily Dehydration. Improved. Decrease IV fluid down to 60 mL/hr. Probably later today or tomorrow Disposition plan. Discussed with patient and daughter. Hospice evaluation although they are not sure they want to go there yet. Versus short-term us[facility] stay if they decide to continue with chemotherapy which has been very hard for the patient. Due to her advanced aggressive disease. Quality VTE Deep Vein Thrombosis/Pulmonary Embolism Present on Admission: No
--- NOTE | 2018-08-31 07:51 | P.PN_ITS ---
Subjective Date Patient Seen: 08/31/18 Time Patient Seen: 07:45 Interval history: Patient doing okay today. States yesterday was boring. Has not really got up and walked much. She says she feels unsteady and afraid to fall. She still has no appetite. Although she states her mouth is feeling a little bit better and less sore. She still ambivalent about food and has not much appetite. Exam Vital Signs (past 8 hours): - 08/31/18 00:20 08/31/18 04:42 Temperature 97.8 F 98.0 F Pulse Rate 106 H 89 Respiratory Rate 20 18 Blood Pressure 147/82 H 116/68 Pulse Oximetry 94 96 Oxygen Delivery Method Room Air Oxygen Flow Rate 0 Narrative Exam Narrative: Gen.: Alert recognizes me today know she is in [facility]. HEENT: Pupils equal round mass reactive. Oral mucosa is dry. Widest crust on the tongue is improved. Neck is supple Cardio: S1-S2 regular rate and rhythm Respiratory: Normal respiratory effort. Decreased breath sounds at lung bases Abdomen: Soft nontender mildly distended no rebound or guarding Extremities: Trace edema in the lower extremities full range of motion Objective Labs Result Diagrams: 08/31/18 06:20 08/31/18 06:20 Labs: Laboratory Results - last 24 hr 08/30/18 08/30/18 08/31/18 08:30 08:30 06:20 WBC 4.6 RBC 3.15 L Hgb 10.6 L Hct 29.6 L MCV 94.1 MCH 33.8 MCHC 35.9 RDW 13.7 Plt Count 223 Neut % (Auto) 38.9 L Lymph % (Auto) 42.2 H [place] % (Auto) 16.6 H Eos % (Auto) 0.9 L Baso % (Auto) 1.4 Neut # (Auto) 1800 L PT 118.1 H D INR 10.4 H* Sodium 143 Potassium 3.3 L Chloride 107 Carbon Dioxide 22 BUN 9 Creatinine 0.70 Estimated GFR > 60.0 BUN/Creatinine Ratio 12.9 Glucose 65 L Calcium 8.8 08/31/18 08/31/18 06:20 06:20 WBC RBC Hgb Hct MCV MCH MCHC RDW Plt Count Neut % (Auto) Lymph % (Auto) [place] % (Auto) Eos % (Auto) Baso % (Auto) Neut # (Auto) PT 66.9 H D INR 6.0 H* Sodium 141 Potassium 3.3 L Chloride 107 Carbon Dioxide 24 BUN 5 L Creatinine 0.70 Estimated GFR > 60.0 BUN/Creatinine Ratio 7.1 Glucose 124 H Calcium 8.6 Assessment & Plan Plan: Assessment/Plan Narrative: Stage IV lung cancer with metastatic disease to lymph node and brain. Patient currently receiving chemotherapy patient is weak dehydrated and malnourished. Patient is falling and confused. Mild improvement of confusion. Work with physical therapy. Long discussion with daughter today. She is unsure after talking with oncology yesterday whether patient will continue to be able to tolerate chemotherapy. They would like to have a discussion with hospice. And may consider going that route. We will have social director call and discuss with her about either hospice or short-term senior care stay for ongoing care needs. Metabolic encephalopathy acute. Patient is confused disoriented and a poor historian. This is worsened by her recent illness of dehydration inability to eat. Chemotherapy and disease burden. Patient's confusion is mildly improved today. She remembers our discussion yesterday. knows she is now at [facility]. Supratherapeutic INR. Patient was placed on warfarin after she had a port placed and had a blood cough. This was done by Oncology. I guess it has been continued on since that time. She may be able to stop her INR we will discuss with Oncology. Brain metastases with craniotomy. She is on Keppra for seizure prophylaxis. No recent changes and new disease on CT scan. Significant malnutrition. Severe. Patient has lost weight continually as an outpatient. Obtain a nutritional evaluation. Continue with prednisone Will provide antiemetics as needed. And place her on a proton pump inhibitor for gastroesophageal prophylaxis. Hypokalemia. Patient's potassium is low. Increase her potassium dose today to 40 mEq twice daily Dehydration. Improved. Decrease IV fluid down to 60 mL/hr. Probably later today or tomorrow Disposition plan. Discussed with patient and daughter. Hospice evaluation although they are not sure they want to go there yet. Versus short-term senior care stay if they decide to continue with chemotherapy which has been very hard for the patient. Due to her advanced aggressive disease. Quality VTE Deep Vein Thrombosis/Pulmonary Embolism Present on Admission: No
[2018-08-31] MEDS: PHYTONADIONE (VIT K1) 5 MG TABLET PO (08:16)
[2018-08-31] MEDS: predniSONE 2.5 MG TABLET PO (08:17)
[2018-08-31] MEDS: levETIRAcetam 250 MG TABLET 500 MG PO ×2 (08:17→20:29)
[2018-08-31] MEDS: POTASSIUM CHLORIDE 20 MEQ/15 ML UDC 40 MEQ PO ×2 (08:24→20:27)
--- NOTE | 2018-08-31 10:14 | OT.IP.TRT ---
Current Diagnoses Dehydration (08/29/18) Occupational Therapy Treatment Note M3 OT- IP Subjective and Pain Start: 08/30/18 14:42 Freq: Status: Active Protocol: Document 08/31/18 10:13 [facility] (Rec: 08/31/18 10:14 [facility] [email or web address]) OT- Subjective Occupational Therapy Visit Type Type Administrative Note Notes Pt's INR still high at 6.0 and therefore continue to hold from OT for OT eval. To check again tomorrow to see if pt more medically stable.
[2018-08-31] MEDS: buPROPion SR 150 MG TAB PO ×2 (10:43→20:28)
[2018-08-31] MEDS: DEXTROSE 5%-0.45% NS 1,000 ML 60 ML IV (10:56)
--- NOTE | 2018-08-31 11:38 | PT.IPTN ---
Current Diagnoses Dehydration (08/29/18) Physical Therapy Treatment Note M2 PT-IP Current Condition Start: 08/30/18 12:43 Freq: NEEDED Status: Active Protocol: Document 08/30/18 11:50 [facility] (Rec: 08/30/18 13:02 [facility] [id number]) Physical Therapy Current Condition Current Condition Evaluation Date 08/30/18 Treatment Diagnosis impaired gait, fall at home Onset Date 08/29/18 Precautions Other Precautions elevated INR, fall risks M3 PT-IP Subjective Start: 08/30/18 12:43 Freq: NEEDED Status: Active Protocol: Document 08/31/18 11:29 [facility] (Rec: 08/31/18 11:37 [facility] [email or web address]) Subjective Physical Therapy Visit Type Type Treatment Note Visit Start Time 10:45 Visit Stop Time 11:15 Total Visit Minutes 30 Number of ASSISTANT TODDLER TEACHER Visits 1 Physical Therapy Visit Comments Patient Comments Pt agreeable to work with PT, hust had bed bath and was completing self care with DIRECTOR CUSTOM. Therapy Pain Assessment Pain When Pain Assessed At Rest Pain Present Pain Present Denied Pain M4 PT-IP Mobility and Gait Start: 08/30/18 12:43 Freq: NEEDED Status: Active Protocol: Document 08/31/18 11:29 [facility] (Rec: 08/31/18 11:37 [facility] [email or web address]) PT-Bed Mobility Assessment Rolling Type of Rolling Roll to Right Level of Assist Contact Guard Assistance Supine to Sit Supine to Sit Minimal Assistance Scooting Scooting to Edge of Bed Contact Guard Assistance PT-Transfer Assessment Sit to and From Stand Sit to and from Stand Minimal Assistance Use of Upper Extremities Equipment Transfer Assistive Device Gait Belt Front Wheeled Walker Transfers Transfer Destination Bed Transfer Technique Stand Step Pivot Transfer Ability Level of Assist Minimal Assistance Comments Mobility Comments Clear, one step cues provided as pt is easily distracted/ confused. Gait Assessment Gait Gait Assistance Required: Minimum Assistance Distance (Feet) 5 Able to Maintain Weight Bearing Status Yes During Gait Assistive Devices Assistive Device Gait Belt Front Wheeled Walker Orthotic/Prosthetic Devices or Brace: No Gait Deviations General Gait Pattern Flexed Trunk Step-to Gait Wide Based Gait Factors Limiting Gait Function Factors Limiting Gait Function Decreased Activity Tolerance Decreased Strength Incoordination Poor Balance Comments Gait Comments Pt denied nausea today, some dizziness but able to walk 5 feet from EOB to Wall and step backwards back to bed. M5 PT-IP Objective Assessments Start: 08/30/18 12:43 Freq: NEEDED Status: Active Protocol: Document 08/30/18 11:50 [facility] (Rec: 08/30/18 13:02 [facility] [id number]) Orientation Orientation/Cognition Level of Alertness Alert Orientation Name Year Language Function Ability No Deficits Noted Safety Awareness Decreased Safety Awareness Memory Description Short Term Impaired [place] Operator Impaired Gross Range of Motion Upper Extremity ROM Assessment Within Functional Limits Lower Extremity ROM Assessment Within Functional Limits Strength Upper Extremity Strength Assessment Within Functional Limits Lower Extremity Strength Knee 4+/5 Comments Strength Comments she has difficulty following instructions for manual muscle testing so unable to complete it Coordination Assessment Gross Coordination Gross Coordination WNL Sensation Assessment Sensation Light Touch Intact Proprioception (Position) Intact Comments Sensation Comments chart notes indicated hx of LE hypersensativity but none reported at this time, she denies numbness/tingling Muscle Tone Muscle Tone WNL Yes M6 PT-IP Treatment Start: 08/30/18 12:43 Freq: NEEDED Status: Active Protocol: Document 08/31/18 11:37 [facility] (Rec: 08/31/18 11:37 [facility] [email or web address]) Physical Therapy Treatment Exercises Exercises Ankle Pumps Heel Slides Seated Knee Flexion/Extension Education Education Provided Safety M7 PT-IP Assessment and Plan Start: 08/30/18 12:43 Freq: NEEDED Status: Active Protocol: Document 08/31/18 11:29 [facility] (Rec: 08/31/18 11:37 [facility] [email or web address]) PT Summary Assessment and Plan Potential Rehabilitation Potential Fair Status of Condition at Evaluation Unstable Summary Impairments Strength Balance Bed Mobility Transfers Gait Activity Tolerance Assessment Summary Pt tolerated slow progression of activity with clear cues and frequent rest breaks, easily confused and distracted . Frequent re-direction. Recommendations To Nursing Amount of Assist Needed 1 Person Assist Discharge Recommendations PT Discharge Recommendations Home with 24/ Assist SNF Rehab
[2018-08-31] MEDS: FLUCONAZOLE 100 MG TABLET 200 MG PO (12:11)
[2018-08-31 16:08] LABS: Magnesium 1.2 mg/dL (1.6-2.3)
--- NOTE | 2018-08-31 17:12 | PC.NURSE ---
Addendum entered by Aziza Andres R.N. 08/31/18 21:41: Pt resting quietly at this time. Relatively uneventful evening. Continue remains essentially unchanged. Denies any discomfort. Call light w/in reach, bed alarm on for pt msafety. Continue w/plan of care. Original Note: Pt Pt sitting in chair, denies any discomfort at this time. IV D51/2NS @ 60cc/hr via pump infusing w/o incidence. Pt presents w/some mild forgetfulness. Call light w/in reach, chair alarm on for pt safety.
[2018-09-01] VITALS (7 sets, daily range): BP systolic 130–139; BP diastolic 66–82; PULSE 81–113; RESP 16–18; TEMP 36.4–36.8; O2SAT 95–99
[2018-09-01] MEDS: DEXTROSE 5%-0.45% NS 1,000 ML 60 ML IV (03:54)
[2018-09-01] MEDS: LEVOTHYROXINE 75 MCG TABLET 150 MCG PO (06:23)
[2018-09-01] MEDS: PANTOPRAZOLE 20 MG TABLET PO (06:23)
[2018-09-01] MEDS: ACETAMINOPHEN 325 MG TABLET 650 MG PO (06:24)
[2018-09-01 06:25] LABS: INR 2.2 (0.9-1.3); Prothrombin Time 24.1 SECONDS (10.1-12.7)
[2018-09-01 06:31] LABS: Calcium 9.3 mg/dL (8.4-10.2); Carbon Dioxide 24 mmol/L (22-32); Chloride 109 mmol/L (98-107); Estimated Glomerular Filt Rate > 60.0 mL/min (>60); Glucose 93 mg/dL (80-110); HEMOLYSIS 15 (0-50); Potassium 2.9 mmol/L (3.4-5.1); Sodium 142 mmol/L (137-145)
[2018-09-01 06:38] LABS: BUN Creatinine Ratio 2.9 (6-22); Blood Urea Nitrogen 2 mg/dL (7-17)
--- NOTE | 2018-09-01 07:40 | PM.PN.1 ---
Subjective Date Patient Seen: 09/01/18 Time Patient Seen: 07:41 Interval history: Patient did well yesterday no concerns. No significant complaints of pain. Not hungry. Resting well this morning. Long discussion with daughter about care plans and wishes as well as patient's wishes. Exam Vital Signs (past 8 hours): - 08/31/18 23:50 09/01/18 00:00 09/01/18 04:06 Temperature 97.2 F L 97.6 F Pulse Rate 88 88 Respiratory Rate 18 18 Blood Pressure 144/83 H 130/73 Pulse Oximetry 99 99 96 Oxygen Delivery Method Room Air Oxygen Flow Rate 0 Narrative Exam Narrative: Gen.: Resting comfortably. HEENT: Pupils equal round and reactive. Oral mucosa is dry. Whitish adherent discharge to tounge Cardio: S1-S2 regular rate and rhythm no murmurs appreciated. Respiratory: Normal respiratory effort Abdomen: Soft nontender no rebound or guarding Extremities: Full range of motion no appreciable weakness no cyanosis or edema. Neurologic: Grossly intact. Objective Labs Result Diagrams: 08/31/18 06:20 09/01/18 05:42 Labs: Laboratory Results - last 24 hr 08/31/18 09/01/18 09/01/18 14:56 05:42 05:42 PT 24.1 H D INR 2.2 H Sodium 142 Potassium 2.9 L Chloride 109 H Carbon Dioxide 24 BUN 2 L Creatinine 0.70 Estimated GFR > 60.0 BUN/Creatinine Ratio 2.9 L Glucose 93 Calcium 9.3 Magnesium 1.2 L Assessment & Plan Plan: Assessment/Plan Narrative: Stage IV lung cancer with metastatic disease to lymph node and brain. Discussion with daughter yesterday. Provided options with her. About hospice. She is contemplating that the she says it may need to be now or maybe in a few weeks if she does not rebound from the chemotherapy. She is wondering about getting to a sniff did temporarily or permanently. We will have social services aide talk with her. Metabolic encephalopathy acute. Resolving back to baseline. Still at times confused. Supratherapeutic INR. No significant signs of bleeding. INR is normal. Will go ahead and hold her warfarin permanently. As it was initially started due to a blood clot from a Port-A-Cath. We will keep her off it months Oncology feel strongly about continuing on. Brain metastases with craniotomy. She is on Keppra for seizure prophylaxis. No recent changes and new disease on CT scan. Significant malnutrition. Severe. Patient is not eating well. Ensure drinks her at the bedside. Hypokalemia. Patient's potassium is low. Stop IV fluid today. Continue with potassium replacement with IV Hypo magnesium. Magnesium replacement today as well. Dehydration. Improved. Stop the IV fluid. Disposition plan. Discharge planning. [facility]-term detention home stay. [facility]. Or other hospice arrangement. Depending on whether they agree to not further pursue chemotherapy. At this in the discussion with the daughter and Oncology. Would anticipate discharge Thursday. Quality VTE Deep Vein Thrombosis/Pulmonary Embolism Present on Admission: No
--- NOTE | 2018-09-01 07:46 | P.PN_ITS ---
Subjective Date Patient Seen: 09/01/18 Time Patient Seen: 07:41 Interval history: Patient did well yesterday no concerns. No significant complaints of pain. Not hungry. Resting well this morning. Long discussion with daughter about care plans and wishes as well as patient's wishes. Exam Vital Signs (past 8 hours): - 08/31/18 23:50 09/01/18 00:00 09/01/18 04:06 Temperature 97.2 F L 97.6 F Pulse Rate 88 88 Respiratory Rate 18 18 Blood Pressure 144/83 H 130/73 Pulse Oximetry 99 99 96 Oxygen Delivery Method Room Air Oxygen Flow Rate 0 Narrative Exam Narrative: Gen.: Resting comfortably. HEENT: Pupils equal round and reactive. Oral mucosa is dry. Whitish adherent discharge to tounge Cardio: S1-S2 regular rate and rhythm no murmurs appreciated. Respiratory: Normal respiratory effort Abdomen: Soft nontender no rebound or guarding Extremities: Full range of motion no appreciable weakness no cyanosis or edema. Neurologic: Grossly intact. Objective Labs Result Diagrams: 08/31/18 06:20 09/01/18 05:42 Labs: Laboratory Results - last 24 hr 08/31/18 09/01/18 09/01/18 14:56 05:42 05:42 PT 24.1 H D INR 2.2 H Sodium 142 Potassium 2.9 L Chloride 109 H Carbon Dioxide 24 BUN 2 L Creatinine 0.70 Estimated GFR > 60.0 BUN/Creatinine Ratio 2.9 L Glucose 93 Calcium 9.3 Magnesium 1.2 L Assessment & Plan Plan: Assessment/Plan Narrative: Stage IV lung cancer with metastatic disease to lymph node and brain. Discussion with daughter yesterday. Provided options with her. About hospice. She is contemplating that the she says it may need to be now or maybe in a few weeks if she does not rebound from the chemotherapy. She is wondering about getting to a sniff did temporarily or permanently. We will have professor of social work talk with her. Metabolic encephalopathy acute. Resolving back to baseline. Still at times confused. Supratherapeutic INR. No significant signs of bleeding. INR is normal. Will go ahead and hold her warfarin permanently. As it was initially started due to a blood clot from a Port-A-Cath. We will keep her off it months Oncology feel strongly about continuing on. Brain metastases with craniotomy. She is on Keppra for seizure prophylaxis. No recent changes and new disease on CT scan. Significant malnutrition. Severe. Patient is not eating well. Ensure drinks her at the bedside. Hypokalemia. Patient's potassium is low. Stop IV fluid today. Continue with potassium replacement with IV Hypo magnesium. Magnesium replacement today as well. Dehydration. Improved. Stop the IV fluid. Disposition plan. Discharge planning. Short-term [facility] home stay. [facility] with [facility]. Or other hospice arrangement. Depending on whether they agree to not further pursue chemotherapy. At this in the discussion with the daughter and Oncology. Would anticipate discharge Thursday. Quality VTE Deep Vein Thrombosis/Pulmonary Embolism Present on Admission: No
[2018-09-01] MEDS: POTASSIUM CHLORIDE 80 MEQ in SODIUM CHLORIDE 0.9% 1,000 ML 130 ML IV (08:26)
[2018-09-01] MEDS: buPROPion SR 150 MG TAB PO ×2 (08:28→21:31)
[2018-09-01] MEDS: levETIRAcetam 250 MG TABLET 500 MG PO ×2 (08:28→21:32)
[2018-09-01] MEDS: predniSONE 2.5 MG TABLET PO (08:30)
[2018-09-01] MEDS: MAGNESIUM CHLORIDE 64 MG TABLET PO ×2 (08:31→21:32)
--- NOTE | 2018-09-01 09:23 | CM.DPC ---
Referral faxed to [facility] per Sheri
--- NOTE | 2018-09-01 09:30 | OT.IP.TRT ---
Current Diagnoses Dehydration (08/29/18) Occupational Therapy Treatment Note M3 OT- IP Subjective and Pain Start: 08/30/18 14:42 Freq: Status: Active Protocol: Document 09/01/18 09:25 [facility] (Rec: 09/01/18 09:28 [facility] [email or web address]) OT- Subjective Occupational Therapy Visit Type Type Administrative Note Notes At this time pt not appropriate for OT eval as needing assist for all ADl needs and either to go home with 24/7 care or for possible skilled rehab. Family also considering hospice. Therefore discharge OT eval order.
[2018-09-01] MEDS: FLUCONAZOLE 100 MG TABLET 200 MG PO (11:13)
--- NOTE | 2018-09-01 11:47 | PT.IPTN ---
Current Diagnoses Dehydration (08/29/18) Physical Therapy Treatment Note M2 PT-IP Current Condition Start: 08/30/18 12:43 Freq: NEEDED Status: Active Protocol: Document 08/30/18 11:50 DLM (Rec: 08/30/18 13:02 DLM [id number]) Physical Therapy Current Condition Current Condition Evaluation Date 08/30/18 Treatment Diagnosis impaired gait, fall at home Onset Date 08/29/18 Precautions Other Precautions elevated INR, fall risks M3 PT-IP Subjective Start: 08/30/18 12:43 Freq: NEEDED Status: Active Protocol: Document 09/01/18 11:36 SA (Rec: 09/01/18 11:47 SA [id number]) Subjective Physical Therapy Visit Type Type Treatment Note Visit Start Time 10:32 Visit Stop Time 11:00 Total Visit Minutes 28 Number of EXTERIOR WORK HELPER Visits 3 Physical Therapy Visit Comments Patient Comments Pt agreeale to PT this AM. Denies pain Therapy Pain Assessment Pain When Pain Assessed At Rest Pain Present Pain Present Denied Pain M4 PT-IP Mobility and Gait Start: 08/30/18 12:43 Freq: NEEDED Status: Active Protocol: Document 09/01/18 11:36 SA (Rec: 09/01/18 11:47 SA [id number]) PT-Bed Mobility Assessment Rolling Type of Rolling Roll to Right Supine to Sit Supine to Sit Minimal Assistance Scooting Scooting to Edge of Bed Contact Guard Assistance PT-Transfer Assessment Sit to and From Stand Sit to and from Stand Minimal Assistance Use of Upper Extremities Equipment Transfer Assistive Device Gait Belt Front Wheeled Walker Transfers Transfer Destination Bedside Commode Transfer Technique Stand Step Pivot Transfer Ability Level of Assist Minimal Assistance Comments Mobility Comments Pt stood at EOB and stated that she had to go to bathroom , completed stand pivot tx safel with visual/tactile cues and increased time for processing. Gait Assessment Gait Gait Assistance Required: Minimum Assistance Distance (Feet) 5 Able to Maintain Weight Bearing Status Yes During Gait Assistive Devices Assistive Device Gait Belt Front Wheeled Walker Orthotic/Prosthetic Devices or Brace: No Gait Deviations General Gait Pattern Flexed Trunk Step-to Gait Wide Based Gait Factors Limiting Gait Function Factors Limiting Gait Function Decreased Activity Tolerance Decreased Strength Incoordination Poor Balance Comments Gait Comments Pt completed side stepping at EOB with FWW and verbal/ tactile cues. Single step cues as pt demonstrates confusion and distractibiity. M5 PT-IP Objective Assessments Start: 08/30/18 12:43 Freq: NEEDED Status: Active Protocol: Document 08/30/18 11:50 DLM (Rec: 08/30/18 13:02 DLM [id number]) Orientation Orientation/Cognition Level of Alertness Alert Orientation Name Year Language Function Ability No Deficits Noted Safety Awareness Decreased Safety Awareness Memory Description Short Term Impaired Detention Impaired Gross Range of Motion Upper Extremity ROM Assessment Within Functional Limits Lower Extremity ROM Assessment Within Functional Limits Strength Upper Extremity Strength Assessment Within Functional Limits Lower Extremity Strength Knee 4+/5 Comments Strength Comments she has difficulty following instructions for manual muscle testing so unable to complete it Coordination Assessment Gross Coordination Gross Coordination WNL Sensation Assessment Sensation Light Touch Intact Proprioception (Position) Intact Comments Sensation Comments chart notes indicated hx of LE hypersensativity but none reported at this time, she denies numbness/tingling Muscle Tone Muscle Tone WNL Yes M6 PT-IP Treatment Start: 08/30/18 12:43 Freq: NEEDED Status: Active Protocol: Document 09/01/18 11:36 SA (Rec: 09/01/18 11:47 SA [id number]) Physical Therapy Treatment Exercises Exercises Ankle Pumps Heel Slides Seated Knee Flexion/Extension Education Education Provided Safety M7 PT-IP Assessment and Plan Start: 08/30/18 12:43 Freq: NEEDED Status: Active Protocol: Document 09/01/18 11:36 SA (Rec: 09/01/18 11:47 SA [id number]) PT Summary Assessment and Plan Potential Rehabilitation Potential Fair Status of Condition at Evaluation Unstable Summary Impairments Strength Balance Bed Mobility Transfers Gait Activity Tolerance Assessment Summary Pt needs clear cues with frequent re-direction back to task. Recommendations To Nursing Amount of Assist Needed 1 Person Assist Discharge Recommendations PT Discharge Recommendations Home with 24/ Assist SNF Rehab
--- NOTE | 2018-09-01 13:02 | CM.DPC ---
DCP Cont: Reviewed chart. Dr Leong asking that this FLARE STITCHER assist in clarifying DC plan w/dtr Kimberlyn, DC is expected w/in 24-48hrs. TC placed to pt's dtr Kimberlyn. She requested a Hospice Info Visit be arranged for her. She also asked how quickly Hospice could follow up? This FLARE STITCHER explained it may not be immediate follow up although referral would need to be screened by Hospice. Kimberlyn understood and explained SNF may be needed until Hospice can f/u. Reviewed Medicare choice list. 1. [facility] 2. Lubna Sofia and pt's cg are hopeful pt can return home. This FLARE STITCHER inquired about pt's cognitive baseline and specifically; does she have the insight to understand the risk vs benefit of ongoing cancer treatment? Kimberlyn explained pt has been mostly alert during the day but can become somewhat disoriented in the evening when at home. Nursing notes indicate pt has been calm and cooperative with care here. Faxed [facility] visit request to [facility] and requested that nurse administrator Lex fax a referral to [facility], possible admission tomorrow. Attempted to reach Dr Leong to give an update, he was unavailable. There has been no DCP confirmed yet. This FLARE STITCHER following closely and will ask dtr Kimberlyn for an update later today; Home w/ Hospice vs SNF (and likely Hospice f/u after) (?) SWETA Green
--- NOTE | 2018-09-01 14:14 | ONC.NAV ---
Description: Care Coordination/Check-in Activity: Met with pt and her dtr, Kimberlyn, on the inpt floor to check on status, support needs/coping and plan for discharge. Pt was found to be alert, more confused in terms of tracking information and memory, however was able to share what the plans are that are being discussed for her discharge. She became tearful in sharing how she understands that she is declining, and the recent of her brother is weighing heavily on her mind (they were close). Dtr is providing all of pt's support and assistance with continued plan of care. Care management is working on a plan to have [facility] provide an informational visit for pt and dtr, which may or may not turn into an immediate admission to hospice. Pt was able to remember that Dr. Flores had discussed wanting to see her in 2-weeks post discharge in consideration of further oncologic treatment options, however only if she regains functional status. Both pt and dtr are feeling very realistic that she most likely will not regain her former functional status, and in fact continues to eat only minimally, is very weak and easily fatigued, and will require 24-hour care post-discharge. This DEDICATED REGIONAL DRIVER offered support for coping and processing this transition from aggressive focused treatment to comfort care. Offered encouragement for all that pt has been through in this complicated course of cancer treatment, and shared that all of us staff in Oncology were thinking of her and wishing her the very best with the next steps in her care and time with family. They expressed feeling grateful for the visit, and will reach out to this DEDICATED REGIONAL DRIVER should there be anything that we can do from Oncology to support this transitional time. *Notified SWETA Wade, in care management of this visit, and that MATTHEW Murcia from Oncology will be visiting tomorrow morning at 8:00am. Notified dtrKimberlyn, as well, so that she can plan to attend Jennifer's visit if she would like to.
[2018-09-01] MEDS: SODIUM CHLORIDE 0.9% FLUSH 10 ML IV (21:18)
[2018-09-01] MEDS: HYDROCODONE/ACET 5/325 TABLET 1 TAB PO (21:33)
--- NOTE | 2018-09-01 21:57 | PC.NURSE ---
2200; patient has been slightly tearful throughout shift, reminiscing about brother and case management appt earlier today (discussed oncology vs. hospice). Patient remains confused r/t pain meds but alert to self, daughter, . Incontinent of urine, wearing brief. Thrush to tongue, receiving ABO. Hypokalemic, K-2.9, k rider 60 mg infused. Appetite poor, refuses all but sorbet, H2O, and iced tea. Multiple bruises from GLF. R wrist SL flushing well, but noticeable bruising at the insertion site. Trace 1+BLE noted, elevated. Call light is in reach, uses it appropriately, bed alarm is on.
[2018-09-02] VITALS: PULSE 99; RESP 16; TEMP 36.5; O2SAT 99
[2018-09-02 06:12] VITALS: BP 128/72; PULSE 93; RESP 16; TEMP 36.3; O2SAT 96
[2018-09-02 06:38] LABS: Calcium 9.3 mg/dL (8.4-10.2); Carbon Dioxide 26 mmol/L (22-32); Chloride 109 mmol/L (98-107); Estimated Glomerular Filt Rate > 60.0 mL/min (>60); Glucose 80 mg/dL (80-110); HEMOLYSIS 18 (0-50); Magnesium 1.3 mg/dL (1.6-2.3); Potassium 3.5 mmol/L (3.4-5.1); Sodium 142 mmol/L (137-145)
[2018-09-02] MEDS: PANTOPRAZOLE 20 MG TABLET PO (06:44)
[2018-09-02] MEDS: LEVOTHYROXINE 75 MCG TABLET 150 MCG PO (06:45)
[2018-09-02 06:47] LABS: BUN Creatinine Ratio 2.5 (6-22); Blood Urea Nitrogen 2 mg/dL (7-17)
--- NOTE | 2018-09-02 07:54 | PC.NURSE ---
Patient got up to BSC with 1 assist using FWW. Had medium bowel movement, took two people to put back to bed. Drank water, white thrush coating on tongue not apparent.
--- NOTE | 2018-09-02 07:56 | PM.DS.1 ---
History of Present Illness Chief complaint: GLF, on blood thinners Narrative: 63-year-old female patient with stage IV lung cancer with metastatic disease to lymph node and brain. She has been undergoing aggressive chemotherapy treatment. Her last chemotherapy was a number of weeks ago. This was a new chemo regimen for her. She was post have a no other dose last week. Since her 1st toe she has not been feeling well. She has had persistent nauseousness and weakness. She has not been eating and has had a gradual slow decline. Her daughter is a nurse is her primary cutting and creasing press operator and her historian as she is unable to provide a reliable history. She was seen and evaluated in the office a few days before admission because of ongoing weakness and concerns in regard to not wanting to eat. Her oral candidiasis as well as persistent weight loss and not feeling well. We reviewed her care treatment plans and options she was discussed that time that there ongoing care and concerns she is in no code status. But she still wants to treat aggressively her cancer. Her symptoms progressed over the weekend. With increasing weakness and falls and difficulty with the taking care of the patient at home. There was concerns for infection weakness and ongoing and worsening disease she was brought to the emergency department for evaluation. On my examination patient is a difficult historian with confusion. She is not exactly sure why she is here in the hospital but she does state she says she is weak she is not hungry. She has been having falls. She says she has intermittent headache. Intermittent blurry vision. She says she has a horrible taste in her mouth. And a sore mouth and dry mouth. She is not complaining of abdominal pain. She is having bowel movements and no dysuria. Discharge Providers Date of admission: 08/29/18 18:29 Primary care physician: Dank Leong MD Consults: 08/29/18 19:31 Consult to Occupational Therapy Evaluate & Treat Comment: Physician Instructions: Evaluate and treat Consult to Physical Therapy Evaluate & Treat Comment: Physician Instructions: Evaluate and Treat Consult to Spotter Stat Comment: 08/29/18 19:51 Consult to Dietitian, Adult Routine Comment: Reason For Exam: minimal intake [id number], significant weight loss 08/29/18 20:39 Consult to Dietitian, Adult Routine Comment: Reason For Exam: Failure to thrive; lung ca with mets to brain 08/30/18 08:09 Consult to Discharge Planning Routine Comment: 08/30/18 08:12 Consult to Physical Therapy Evaluate & Treat Comment: Physician Instructions: Evaluate and Treat Consult to Spotter Routine Comment: Discharge provider: Dank Leong MD Discharge Date: 09/02/18 Summary Discharge Diagnosis: Stage IV lung cancer with metastatic disease to lymph node and brain. Metabolic encephalopathy acute. Resolving back to baseline. S Supratherapeutic INR. We will leave off her Coumadin as this was previously started due to a thrombosis from a indwelling catheter she no longer needs it. Oral and esophageal candidiasis due to chemotherapy. Did not tolerate nystatin. Continue with Diflucan for complete 7 day course Brain metastases with craniotomy. She is on Keppra for seizure prophylaxis. No recent changes and new disease on CT scan. Significant malnutrition. Severe. Patient is not eating well. Ensure drinks her at the bedside. Hypokalemia. Replaced now normal Hypo magnesium. Magnesium replacement today as well. Dehydration. Improved. Stop the IV fluid. Exam Vital Signs (past 8 hours): - 09/02/18 00:00 09/02/18 06:12 Temperature 97.7 F 97.3 F L Pulse Rate 99 H 93 H Respiratory Rate 16 16 Blood Pressure 128/72 Pulse Oximetry 99 96 Oxygen Delivery Method Room Air Oxygen Flow Rate 0 Narrative Exam Narrative: Gen.: Alert awake HEENT: Pupils equal round and react neck is supple. Oral mucosa is dry and whitish adherent oral Cardio: Regular rate and rhythm Respiratory: Normal respiratory effort Abdomen: Soft no masses appreciated Extremities: Weakness Objective Labs Result Diagrams: 08/31/18 06:20 09/02/18 05:52 Labs: Laboratory Results - last 24 hr 09/02/18 05:52 Sodium 142 Potassium 3.5 Chloride 109 H Carbon Dioxide 26 BUN 2 L Creatinine 0.80 Estimated GFR > 60.0 BUN/Creatinine Ratio 2.5 L Glucose 80 Calcium 9.3 Magnesium 1.3 L Discharge Plan Discharge Plan Discharge Problem: Adult failure to thrive, Acute dehydration, Supratherapeutic INR Patient Disposition: SNF Transportation: Facility vehicle Labs: Basic metabolic profile in 48 hr with a magnesium level I certify the postop hospital jail care is medically necessary on a continuing basis for any conditions for which he/ she received care during this hospitalization.: Yes The receiving facility has agreed to accept transfer and provide medical treatment.: Yes Discharge Health Status Multidrug resistant organism: No MDRO Date verified: 09/02/18 Precautions: [place] Provider Discharge Instructions Diet: Diet as Tolerated Liquid consistency: Normal/Thin Food texture: Regular Special Rehabilitation Services Rehab type: Physical therapy, Occupational therapy and Speech therapy Discharge Data Primary Care Provider: Dank Leong Attending Provider: Dank Leong Admit Date/Time: 08/29/18 18:29 Discharges patient from system. Discharge Date/Time: 09/02/18 15:00 Quality VTE Deep Vein Thrombosis/Pulmonary Embolism Present on Admission: No
--- NOTE | 2018-09-02 08:03 | P.DS_ITS ---
History of Present Illness Chief complaint: GLF, on blood thinners Narrative: 63-year-old female patient with stage IV lung cancer with metastatic disease to lymph node and brain. She has been undergoing aggressive chemotherapy treatment. Her last chemotherapy was a number of weeks ago. This was a new chemo regimen for her. She was post have a no other dose last week. Since her 1st toe she has not been feeling well. She has had persistent nauseousness and weakness. She has not been eating and has had a gradual slow decline. Her daughter is a nurse is her primary plasma processing centrifuge operator and her historian as she is unable to provide a reliable history. She was seen and evaluated in the office a few days before admission because of ongoing weakness and concerns in regard to not wanting to eat. Her oral candidiasis as well as persistent weight loss and not feeling well. We reviewed her care treatment plans and options she was discussed that time that there ongoing care and concerns she is in no code status. But she still wants to treat aggressively her cancer. Her symptoms progressed over the weekend. With increasing weakness and falls and difficulty with the taking care of the patient at home. There was concerns for infection weakness and ongoing and worsening disease she was brought to the emergency department for evaluation. On my examination patient is a difficult historian with confusion. She is not exactly sure why she is here in the hospital but she does state she says she is weak she is not hungry. She has been having falls. She says she has intermittent headache. Intermittent blurry vision. She says she has a horrible taste in her mouth. And a sore mouth and dry mouth. She is not complaining of abdominal pain. She is having bowel movements and no dysuria. Discharge Providers Date of admission: 08/29/18 18:29 Primary care physician: Dank Leong MD Consults: 08/29/18 19:31 Consult to Occupational Therapy Evaluate & Treat Comment: Physician Instructions: Evaluate and treat Consult to Physical Therapy Evaluate & Treat Comment: Physician Instructions: Evaluate and Treat Consult to Duct Maker Stat Comment: 08/29/18 19:51 Consult to Dietitian, Adult Routine Comment: Reason For Exam: minimal intake [id number], significant weight loss 08/29/18 20:39 Consult to Dietitian, Adult Routine Comment: Reason For Exam: Failure to thrive; lung ca with mets to brain 08/30/18 08:09 Consult to Discharge Planning Routine Comment: 08/30/18 08:12 Consult to Physical Therapy Evaluate & Treat Comment: Physician Instructions: Evaluate and Treat Consult to Duct Maker Routine Comment: Discharge provider: Dank Leong MD Discharge Date: 09/02/18 Summary Discharge Diagnosis: Stage IV lung cancer with metastatic disease to lymph node and brain. Metabolic encephalopathy acute. Resolving back to baseline. S Supratherapeutic INR. We will leave off her Coumadin as this was previously started due to a thrombosis from a indwelling catheter she no longer needs it. Oral and esophageal candidiasis due to chemotherapy. Did not tolerate nystatin. Continue with Diflucan for complete 7 day course Brain metastases with craniotomy. She is on Keppra for seizure prophylaxis. No recent changes and new disease on CT scan. Significant malnutrition. Severe. Patient is not eating well. Ensure drinks her at the bedside. Hypokalemia. Replaced now normal Hypo magnesium. Magnesium replacement today as well. Dehydration. Improved. Stop the IV fluid. Exam Vital Signs (past 8 hours): - 09/02/18 00:00 09/02/18 06:12 Temperature 97.7 F 97.3 F L Pulse Rate 99 H 93 H Respiratory Rate 16 16 Blood Pressure 128/72 Pulse Oximetry 99 96 Oxygen Delivery Method Room Air Oxygen Flow Rate 0 Narrative Exam Narrative: Gen.: Alert awake HEENT: Pupils equal round and react neck is supple. Oral mucosa is dry and whitish adherent oral Cardio: Regular rate and rhythm Respiratory: Normal respiratory effort Abdomen: Soft no masses appreciated Extremities: Weakness Objective Labs Result Diagrams: 08/31/18 06:20 09/02/18 05:52 Labs: Laboratory Results - last 24 hr 09/02/18 05:52 Sodium 142 Potassium 3.5 Chloride 109 H Carbon Dioxide 26 BUN 2 L Creatinine 0.80 Estimated GFR > 60.0 BUN/Creatinine Ratio 2.5 L Glucose 80 Calcium 9.3 Magnesium 1.3 L Discharge Plan Discharge Plan Discharge Problem: Adult failure to thrive, Acute dehydration, Supratherapeutic INR Patient Disposition: SNF Transportation: Facility vehicle Labs: Basic metabolic profile in 48 hr with a magnesium level I certify the postop hospital nursing home care is medically necessary on a continuing basis for any conditions for which he/ she received care during this hospitalization.: Yes The receiving facility has agreed to accept transfer and provide medical treatment.: Yes Discharge Health Status Multidrug resistant organism: No MDRO Date verified: 09/02/18 Precautions: [place] Provider Discharge Instructions Diet: Diet as Tolerated Liquid consistency: Normal/Thin Food texture: Regular Special Rehabilitation Services Rehab type: Physical therapy, Occupational therapy and Speech therapy Discharge Data Primary Care Provider: Dank Leong Attending Provider: Dank Leong Admit Date/Time: 08/29/18 18:29 Discharges patient from system. Discharge Date/Time: 09/02/18 15:00 Quality VTE Deep Vein Thrombosis/Pulmonary Embolism Present on Admission: No
[2018-09-02] MEDS: MAGNESIUM SULFATE 4 GM/100 ML PIGGYBACK IV (08:25)
[2018-09-02] MEDS: POTASSIUM CHLORIDE 40 MEQ in SODIUM CHLORIDE 0.9% 500 ML 130 ML IV (08:33)
[2018-09-02 09:30] VITALS: BP 131/72; PULSE 97; RESP 16; TEMP 36.6; O2SAT 94
[2018-09-02 10:00] VITALS: O2SAT 96
[2018-09-02] MEDS: FLUCONAZOLE 100 MG TABLET 200 MG PO (10:03)
[2018-09-02] MEDS: levETIRAcetam 250 MG TABLET 500 MG PO (10:04)
[2018-09-02] MEDS: buPROPion SR 150 MG TAB PO (10:04)
[2018-09-02] MEDS: MAGNESIUM CHLORIDE 64 MG TABLET PO (10:04)
[2018-09-02] MEDS: predniSONE 2.5 MG TABLET PO (10:04)
[2018-09-02] MEDS: SODIUM CHLORIDE 0.9% FLUSH 10 ML IV (10:05)
--- NOTE | 2018-09-02 11:33 | PT.IPTN ---
Current Diagnoses Dehydration (08/29/18) Physical Therapy Treatment Note M2 PT-IP Current Condition Start: 08/30/18 12:43 Freq: NEEDED Status: Active Protocol: Document 08/30/18 11:50 DLM (Rec: 08/30/18 13:02 DLM [id number]) Physical Therapy Current Condition Current Condition Evaluation Date 08/30/18 Treatment Diagnosis impaired gait, fall at home Onset Date 08/29/18 Precautions Other Precautions elevated INR, fall risks M3 PT-IP Subjective Start: 08/30/18 12:43 Freq: NEEDED Status: Active Protocol: Document 09/02/18 11:32 SA (Rec: 09/02/18 11:33 SA [id number]) Subjective Physical Therapy Visit Type Type Patient Refusal Notes Pt very tired, states she didn 't sleep well and asks to skip PT this AM. M4 PT-IP Mobility and Gait Start: 08/30/18 12:43 Freq: NEEDED Status: Active Protocol: Document 09/01/18 11:36 SA (Rec: 09/01/18 11:47 SA [id number]) PT-Bed Mobility Assessment Rolling Type of Rolling Roll to Right Supine to Sit Supine to Sit Minimal Assistance Scooting Scooting to Edge of Bed Contact Guard Assistance PT-Transfer Assessment Sit to and From Stand Sit to and from Stand Minimal Assistance Use of Upper Extremities Equipment Transfer Assistive Device Gait Belt Front Wheeled Walker Transfers Transfer Destination Bedside Commode Transfer Technique Stand Step Pivot Transfer Ability Level of Assist Minimal Assistance Comments Mobility Comments Pt stood at EOB and stated that she had to go to bathroom , completed stand pivot tx safel with visual/tactile cues and increased time for processing. Gait Assessment Gait Gait Assistance Required: Minimum Assistance Distance (Feet) 5 Able to Maintain Weight Bearing Status Yes During Gait Assistive Devices Assistive Device Gait Belt Front Wheeled Walker Orthotic/Prosthetic Devices or Brace: No Gait Deviations General Gait Pattern Flexed Trunk Step-to Gait Wide Based Gait Factors Limiting Gait Function Factors Limiting Gait Function Decreased Activity Tolerance Decreased Strength Incoordination Poor Balance Comments Gait Comments Pt completed side stepping at EOB with FWW and verbal/ tactile cues. Single step cues as pt demonstrates confusion and distractibiity. M5 PT-IP Objective Assessments Start: 08/30/18 12:43 Freq: NEEDED Status: Active Protocol: Document 08/30/18 11:50 DL (Rec: 08/30/18 13:02 DL [id number]) Orientation Orientation/Cognition Level of Alertness Alert Orientation Name Year Language Function Ability No Deficits Noted Safety Awareness Decreased Safety Awareness Memory Description Short Term Impaired Strategic Communications Manager Impaired Gross Range of Motion Upper Extremity ROM Assessment Within Functional Limits Lower Extremity ROM Assessment Within Functional Limits Strength Upper Extremity Strength Assessment Within Functional Limits Lower Extremity Strength Knee 4+/5 Comments Strength Comments she has difficulty following instructions for manual muscle testing so unable to complete it Coordination Assessment Gross Coordination Gross Coordination WNL Sensation Assessment Sensation Light Touch Intact Proprioception (Position) Intact Comments Sensation Comments chart notes indicated hx of LE hypersensativity but none reported at this time, she denies numbness/tingling Muscle Tone Muscle Tone WNL Yes M6 PT-IP Treatment Start: 08/30/18 12:43 Freq: NEEDED Status: Active Protocol: Document 09/01/18 11:36 SA (Rec: 09/01/18 11:47 SA [id number]) Physical Therapy Treatment Exercises Exercises Ankle Pumps Heel Slides Seated Knee Flexion/Extension Education Education Provided Safety M7 PT-IP Assessment and Plan Start: 08/30/18 12:43 Freq: NEEDED Status: Active Protocol: Document 09/01/18 11:36 SA (Rec: 09/01/18 11:47 SA [id number]) PT Summary Assessment and Plan Potential Rehabilitation Potential Fair Status of Condition at Evaluation Unstable Summary Impairments Strength Balance Bed Mobility Transfers Gait Activity Tolerance Assessment Summary Pt needs clear cues with frequent re-direction back to task. Recommendations To Nursing Amount of Assist Needed 1 Person Assist Discharge Recommendations PT Discharge Recommendations Home with 24/7 Assist SNF Rehab
--- NOTE | 2018-09-02 14:37 | PC.NURSE ---
Pt is A and O x 2-3, some confusion and forgetness noted. Per daughter, Pt sundowns. VSS. S1, S2, LS clear, Small continent BM this shift with SBA x 1 to BSC. UO quantities sufficient, clear yellow. Pt skin intact with some large bruising on mid back and R side, from recent GLF. She denies pain. Pt is calm and cooperative, follows directions well.
--- NOTE | 2018-09-03 16:37 | CM.DPC ---
Late Entry, DC Note: Pt DC to [facility] on , much appreciated assistance from MATTHEW Lee, who clarified goals of care and reviewed DCP again w/pt and dtr Natali, they decided SNF for rehab was appropriate w/Hospice to likely take over pt's care at home eventually. insurance account assistant Lex and nursing staff coordinated details of this DC w/ Rosette at [facility] who kindly accepted pt for admission on . See Jennifer Lee's notes for details re POC. JW
== END 2018-09-02 15:00 | DRG 70 ==
LOC: ED 18:20 → AC 08-30 07:22
PROVIDERS: Admitting Provider Family Medicine; Emergency Provider Emergency Medicine; Family Provider Family Medicine; PCP Family Medicine; Visit Provider Family Medicine
DX: G93.41 Metabolic encephalopathy (principal); E43 Unspecified severe protein-calorie malnutrition; C34.90 Malignant neoplasm of unspecified part of unspecified bronchus or lung; C77.9 Secondary and unspecified malignant neoplasm of lymph node, unspecified; C79.31 Secondary malignant neoplasm of brain; B37.0 Candidal stomatitis; B37.81 Candidal esophagitis; E86.0 Dehydration; Z68.24 Body mass index [BMI] 24.0-24.9, adult; E87.6 Hypokalemia; Z66 Do not resuscitate; W18.30XA Fall on same level, unspecified, initial encounter; Z91.81 History of falling; Z87.891 Personal history of nicotine dependence; F32.9 Major depressive disorder, single episode, unspecified; E03.9 Hypothyroidism, unspecified; Z79.01 Long term (current) use of anticoagulants; Z86.2 Personal history of diseases of the blood and blood-forming organs and certain disorders involving the immune mechanism; T45.1X5A Adverse effect of antineoplastic and immunosuppressive drugs, initial encounter; E83.42 Hypomagnesemia; R53.1 Weakness
CPT/HCPCS: 36415; 70450; 76856; 80048; 83735; 85025; 85610; 85730; 96374; 97110; 97163; 97530; 99223; 99232; 99238; 99283; 99284; J2405; J3475; J3480

== ENCOUNTER → 2018-09-04 15:59 | Outpatient (REF) | payer MEDICARE, OTHER, SELFPAY ==
[2018-08-29 19:36] VITALS: BMI 24.4
[2018-09-04 16:15] LABS: BUN Creatinine Ratio 11.1 (6-22); Blood Urea Nitrogen 10 mg/dL (7-17); Calcium 9.3 mg/dL (8.4-10.2); Carbon Dioxide 30 mmol/L (22-32); Chloride 102 mmol/L (98-107); Estimated Glomerular Filt Rate > 60.0 mL/min (>60); Glucose 116 mg/dL (80-110); HEMOLYSIS < 15 (0-50); Magnesium 1.7 mg/dL (1.6-2.3); Sodium 141 mmol/L (137-145)
--- NOTE | 2018-09-13 11:14 | ONC.APRN.PN ---
PN -Subjective Interval history: Luz Elena is a 63 year old female who is being seen at [facility] [place] 09/13/2018. Also present for visit is her daughter Kimberlyn, POWER PLANT ASSISTANT Nahomy, [employer] Shafer and field sales manager Pauline. We are conducting a care conference today. 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 Discharged from hospital and transferred to [facility] 09/02/2018. DC from [facility] pending discussion today. Oncological history She initially presented in 10/2017 with falls and poor balance. Brain MRI 11/11/2017 showed metastasis involving right parietal and parieto-occipital cortex. CT C/A/P with contrast on the same day showed left upper lobe pulmonary nodule, mediastinal adenopathy, and fullness in the left adnexa. Pelvic ultrasound on the same day showed solid 3.2 cm left ovarian mass, favoring atypical dermoid and abnormally thickened endometrium favoring endometrial polyp. She underwent biopsy resection of right occipital tumor at [facility] on 11/13/2017, consistent with moderately differentiated pulmonary adenocarcinoma, EGFR, ALK, ROS1 all wild type, PD-L1 with high TPS >50%. She received 8 cycles of single agent pembrolizumab, but CT CAP 07/01/2018 showed disease progression compared to 02/01/2018. The left upper lobe mass has increased to 2.4 cm (1.5 cm previously), associated with progression of metastatic lymphadenopathy including left infraclavicular, superior mediastinal, precarinal, left hilar, and left axillary lymph nodes, interval development of nonspecific nodular thickening involving bilateral diaphragmatic crura, and interval increase in size of known left adnexal mass. Brain MRI with and without contrast 07/28/2018 is negative for metastases. The minimal enhancement surrounding right parietal occipital resection cavity has further improved. On August 02, 2018, patient was started on palliative chemotherapy with carboplatin AUC 4.5 and the pemetrexed. 500 mg per sq meter. After the chemotherapy with carbo and Pemetrexed, the patient has developed significant fatigue, loss of appetite, change of taste, and failure to thrive. Yesterday patient fell together with after mental status. She was brought to the hospital by 911. CT scan of the head did not reveal any acute process. Her IN are was found to be significantly elevated that was 8.3. And today the out in our has further increased to 10.4 Pred clinically no active bleeding events. Comorbid conditions include chronic depression, anxiety, anticoagulation therapy, hypothyroidism and dyslipidemia. She continues to smoke a few cigarettes a day. Home Medications and Allergies Home Medications Medication Instructions Recorded Confirmed Type calcium citrate-vitamin D3 1 tab PO QDAY #0 12/03/16 08/29/18 History [Citracal Regular] cetirizine 10 mg PO QDAY #30 tab 01/27/17 08/29/18 Rx levetiracetam [Keppra] 500 mg PO BID #60 12/10/17 08/29/18 Rx ranitidine HCl 75 mg PO QDAY #0 12/10/17 08/29/18 History docusate sodium [Colace] 100 mg PO QDAY #0 01/05/18 08/29/18 History albuterol sulfate [Ventolin HFA] 2 puff INH Q4HP PRN 03/16/18 08/29/18 History bupropion HCl [Wellbutrin SR] 150 mg PO BID #180 tab 04/14/18 08/29/18 Rx melatonin 3 mg PO BEDTIME PRN 04/26/18 08/29/18 History folic acid 1 mg PO DAILY #90 tab 07/29/18 08/29/18 Rx ondansetron 8 mg PO TID PRN 08/02/18 08/29/18 History levothyroxine [Unithroid] 150 mcg PO DAILY 90 Days #90 tab 08/23/18 08/29/18 Rx prednisone 2.5 mg PO DAILY 08/29/18 08/29/18 History fluconazole [Diflucan] 200 mg PO DAILY #1 tab 09/02/18 Rx Allergies Allergy/AdvReac Type Severity Reaction Status Date / Time bacitracin Allergy Mild ITCHING Verified 08/29/18 18:47 [From NEOSPORIN ([id number])] neomycin Allergy Mild ITCHING Verified 08/29/18 18:47 [From NEOSPORIN ([id number])] polymyxin B Allergy Mild ITCHING Verified 08/29/18 18:47 [From NEOSPORIN ([id number])] diphenhydramine AdvReac Mild ELEVATED Verified 08/29/18 18:47 [DIPHENHYDRAMINE] HEART RATE erythromycin base AdvReac Mild Difficulty Verified 08/29/18 18:47 [ERYTHROMYCIN BASE] Breathing caffeine [From CAFERGOT] AdvReac Unknown ELEVATED Verified 08/29/18 18:47 HR, MIGRAINE ergotamine [From CAFERGOT] AdvReac Unknown ELEVATED Verified 08/29/18 18:47 HR, MIGRAINE Results - Labs Laboratory Last Values Sodium 141 mmol/L (137-145) 09/04/18 Unknown Potassium 4.0 mmol/L (3.4-5.1) 09/04/18 Unknown Chloride 102 mmol/L (98-107) 09/04/18 Unknown Carbon Dioxide 30 mmol/L (22-32) 09/04/18 Unknown BUN 10 mg/dL (7-17) 09/04/18 Unknown Creatinine 0.90 mg/dL (0.52-1.04) 09/04/18 Unknown Estimated GFR > 60.0 mL/min (>60) 09/04/18 Unknown BUN/Creatinine Ratio 11.1 (6-22) 09/04/18 Unknown Glucose 116 mg/dL (80-110) H 09/04/18 Unknown Calcium 9.3 mg/dL (8.4-10.2) 09/04/18 Unknown Magnesium 1.7 mg/dL (1.6-2.3) 09/04/18 Unknown
== END ==
LOC: LAB 15:59
PROVIDERS: Family Provider Family Medicine; PCP Family Medicine; Visit Provider Hospitalist
DX: I10 Essential (primary) hypertension (principal)
CPT/HCPCS: 80048; 83735

== ENCOUNTER → 2018-09-13 20:29 | Outpatient (REF) | payer MEDICARE, OTHER, SELFPAY ==
[2018-08-29 19:36] VITALS: BMI 24.4
[2018-09-13 20:38] LABS: Add Manual Diff / Slide Review NO; Basophils Percent Auto 1.2 % (0-2); Eosinophils Percent Auto 0.9 % (2-4); Hematocrit 32.5 % (36-46); Lymphocytes Percent Auto 39.7 % (25-40); Mean Corpuscular HGB Conc 33.9 % (30-36); Mean Corpuscular Hemoglobin 33.2 PG (26-34); Mean Corpuscular Volume 97.7 fL (80-100); Neutrophils Absolute Auto 2600 /uL (3000-5900); Neutrophils Percent Auto 51.2 % (50-75); Platelet Count 197 X10^3/uL (150-400); Red Blood Cell Count 3.32 X10^6/uL (4.0-5.2); Red Cell Distribution Width 15.9 % (11.6-14.8)
[2018-09-13 20:50] LABS: Alanine Aminotransferase 25 IU/L (9-52); Albumin Globulin Ratio 1.5 (1.0-2.8); Alkaline Phosphatase 53 U/L (38-126); Aspartate Aminotransferase 29 IU/L (14-36); BUN Creatinine Ratio 10.8 (6-22); Bilirubin Total 0.5 mg/dL (0.2-1.3); Blood Urea Nitrogen 13 mg/dL (7-17); Calcium 9.4 mg/dL (8.4-10.2); Carbon Dioxide 27 mmol/L (22-32); Chloride 99 mmol/L (98-107); Estimated Glomerular Filt Rate 45.1 mL/min (>60); Globulin 2.7 g/dL (1.7-4.1); Glucose 98 mg/dL (80-110); HEMOLYSIS < 15 (0-50); Potassium 3.9 mmol/L (3.4-5.1); Sodium 139 mmol/L (137-145); Total Protein 6.7 g/dL (6.3-8.2)
== END ==
LOC: LAB 20:29
PROVIDERS: Family Provider Family Medicine; PCP Family Medicine; Visit Provider Hospitalist
DX: R63.4 Abnormal weight loss (principal); C34.90 Malignant neoplasm of unspecified part of unspecified bronchus or lung
CPT/HCPCS: 80053; 85025

== ENCOUNTER 2018-09-25 12:33 | Emergency (ER) | payer MEDICARE, OTHER, SELFPAY ==
[2018-09-25 12:38] VITALS: BP 124/82; PULSE 116; RESP 20; TEMP 36.9; O2SAT 98; BMI 22.4
--- NOTE | 2018-09-25 12:38 | ED.FALL ---
HPI - Fall <Cooper WiseMATTHEW - Last Filed: 09/25/18 22:15> General Chief Complaint: Fall Stated Complaint: Ground Level Fall Time Seen by Provider: 09/25/18 12:37 Source: patient Mode of arrival: EMS Limitations: no limitations History of Present Illness HPI Narrative: 63-year-old female with history of lung cancer and is a prior smoker here for complaint of ground level fall prior to arrival. She was walking with a cane and stumbled over her feet. She landed on her buttocks area. She complains of having pain into her bilateral hips and tailbone area. She also states she did hit her head however she did not lose consciousness. No nausea or vomiting. She denies any neck pain. No chest pain. No abdominal pain. Increased pain with palpation to bilateral hips. She denies any other concerns or complaints at this time. Related Data Home Medications Medication Instructions Recorded Confirmed calcium citrate-vitamin D3 1 tab PO QDAY #0 12/03/16 09/14/18 [Citracal Regular] ranitidine HCl 75 mg PO QDAY #0 12/10/17 09/14/18 docusate sodium [Colace] 100 mg PO QDAY #0 01/05/18 09/14/18 albuterol sulfate [Ventolin HFA] 2 puff INH Q4HP PRN 03/16/18 09/14/18 melatonin 3 mg PO BEDTIME PRN 04/26/18 09/14/18 ondansetron 8 mg PO TID PRN 08/02/18 09/14/18 prednisone 2.5 mg PO DAILY 08/29/18 09/14/18 Previous Rx's Medication Instructions Recorded cetirizine 10 mg PO QDAY #30 tab 01/27/17 levetiracetam [Keppra] 500 mg PO BID #60 12/10/17 bupropion HCl [Wellbutrin SR] 150 mg PO BID #180 tab 04/14/18 folic acid 1 mg PO DAILY #90 tab 07/29/18 levothyroxine [Unithroid] 150 mcg PO DAILY 90 Days #90 tab 08/23/18 mirtazapine 7.5 mg tablet 7.5 mg PO DAILY #30 tab 09/14/18 prednisone 2.5 mg tablet 2.5 mg PO DAILY #30 tab 09/14/18 fluconazole 200 mg tablet 200 mg PO DAILY #7 tab 09/17/18 Allergies Allergy/AdvReac Type Severity Reaction Status Date / Time bacitracin Allergy Mild ITCHING Verified 09/25/18 12:41 [From NEOSPORIN ([id number])] neomycin Allergy Mild ITCHING Verified 09/25/18 12:41 [From NEOSPORIN ([id number])] polymyxin B Allergy Mild ITCHING Verified 09/25/18 12:41 [From NEOSPORIN ([id number])] diphenhydramine AdvReac Mild ELEVATED Verified 09/25/18 12:41 [DIPHENHYDRAMINE] HEART RATE erythromycin base AdvReac Mild Difficulty Verified 09/25/18 12:41 [ERYTHROMYCIN BASE] Breathing caffeine [From CAFERGOT] AdvReac Unknown ELEVATED Verified 09/25/18 12:41 HR, MIGRAINE ergotamine [From CAFERGOT] AdvReac Unknown ELEVATED Verified 09/25/18 12:41 HR, MIGRAINE Review of Systems <MATTHEW Grijalva - Last Filed: 09/25/18 22:15> Constitutional Denies chills, Denies fever(s), Denies lethargy and Denies weakness Eyes Denies change in vision, Denies eye discharge, Denies irritation and Denies loss of vision ENT Ears, Nose, Mouth, and Throat: Denies change in voice, Denies neck pain and Denies sore throat Cardiovascular Denies chest pain, Denies irregular heart rhythm, Denies lightheadedness, Denies palpitations, Denies dyspnea, Denies dyspnea on exertion and Denies orthopnea Respiratory Denies cough, Denies dyspnea, Denies dyspnea on exertion and Denies wheezing Gastrointestinal Gastrointestinal: Denies abdominal pain, Denies change in bowel habits, Denies diarrhea, Denies nausea and Denies vomiting Genitourinary Denies hematuria, Denies flank pain, Denies urinary incontinence and Denies urinary urgency Musculoskeletal Denies neck pain Comments: Pain to bilateral hips and tailbone Integumentary/Breasts Denies pruritus, Denies erythema, Denies rash and Denies wounds Neurologic Denies confusion, Denies loss of vision and Denies weakness Comments: Ground level fall hitting hit Psychiatric Denies anxiety, Denies confusion, Denies depression, Denies homicidal ideation and Denies suicidal ideation Endocrine Denies palpitations Hematologic/Lymphatic Denies easy bruising Allergic/Immunologic Denies wheezing Exam <MATTHEW Grijalva - Last Filed: 09/25/18 22:15> Initial Vital Signs Initial Vital Signs: Vital Signs Temperature 98.5 F 09/25/18 12:38 Pulse Rate 116 H 09/25/18 12:38 Respiratory Rate 20 09/25/18 12:38 Blood Pressure 124/82 09/25/18 12:38 Pulse Oximetry 98 09/25/18 12:38 Const General: cooperative and well developed Nutritional Appearance: well nourished Orientation: alert, awake, oriented x3 and not confused [facility] Head: normal to inspection, normocephalic, atraumatic, No Alegria's sign, No contusion, No hematoma, No laceration, No palpable skull fracture, No raccoon eyes and No scalp lesion Mouth: oral mucosae normal and oropharynx normal Eyes Conjunctivae: conjunctivae normal Sclera: sclerae normal Pupils: PERRL EOM: EOM intact bilaterally Neck Neck: normal visual inspection, trachea midline, No lymphadenopathy, No midline deformity and No JVD Lymphatic: No lymphedema Chest Chest: normal inspection of the chest Resp Effort & Inspection: normal respiratory effort, able to speak in complete sentences, no respiratory distress and no use of accessory muscles Auscultation: clear to auscultation bilaterally, no rales, no rhonchi and no wheezes Cardio Rate: regular rate Rhythm: regular rhythm Heart Sounds: no click, no gallops, no murmurs and no rubs Pulses: normal peripheral pulses GI Inspection: non-distended Palpation: soft, no hepatosplenomegaly, No guarding, No pulsatile mass and No tender Auscultation: normal bowel sounds Skin General: no rashes or lesions noted, No jaundice and No petechiae Neuro General: alert, oriented x3, gait normal and no focal motor deficits Speech: speech normal <Manuel Bryson DO - Last Filed: 09/27/18 10:08> Initial Vital Signs Initial Vital Signs: Vital Signs Temperature 98.5 F 09/25/18 12:38 Pulse Rate 116 H 09/25/18 12:38 Respiratory Rate 20 09/25/18 12:38 Blood Pressure 124/82 09/25/18 12:38 Pulse Oximetry 98 09/25/18 12:38 Course <MATTHEW Grijalva - Last Filed: 09/25/18 22:15> Orders Ordered: Discontinued Medications Sodium Chloride (Normal Saline 0.9%) 1,000 mls @ 1,000 mls/hr IV BOLUS ONE Stop: 09/25/18 13:42 Last Infusion: 09/25/18 15:20 Dose: 0 mls/hr Admin: 09/25/18 13:14 Dose: 1,000 mls/hr Vital Signs - 8 hr 09/25/18 15:00 Pulse Rate 93 H Respiratory Rate 24 Blood Pressure [Left Arm] 111/72 Pulse Oximetry 99 <Manuel Bryson DO - Last Filed: 09/27/18 10:08> Orders Ordered: Discontinued Medications Sodium Chloride (Normal Saline 0.9%) 1,000 mls @ 1,000 mls/hr IV BOLUS ONE Stop: 09/25/18 13:42 Last Infusion: 09/25/18 15:20 Dose: 0 mls/hr Admin: 09/25/18 13:14 Dose: 1,000 mls/hr Vital Signs - 8 hr 09/25/18 15:00 Pulse Rate 93 H Respiratory Rate 24 Blood Pressure [Left Arm] 111/72 Pulse Oximetry 99 MDM - Fall <MATTHEW Grijalva - Last Filed: 09/25/18 22:15> Lab Data Result diagrams: 09/25/18 12:22 09/25/18 12:22 Lab Results 09/25/18 09/25/18 09/25/18 Range/Units 12:22 12:22 12:22 WBC 6.7 (4.5-11.0) X10^3/uL RBC 4.04 (4.0-5.2) X10^6/uL Hgb 13.4 (12.0-16.0) g/dL Hct 40.2 (36-46) % MCV 99.6 (80-100) fL MCH 33.2 (26-34) PG MCHC 33.3 (30-36) % RDW 16.5 H (11.6-14.8) % Plt Count 222 (150-400) X10^3/uL Neut % (Auto) 46.7 L (50-75) % Lymph % (Auto) 43.1 H (25-40) % Wagoner % (Auto) 7.6 (3-14) % Eos % (Auto) 1.7 L (2-4) % Baso % (Auto) 0.9 (0-2) % Neut # (Auto) 3100 (2538-4673) /uL PT (10.1-12.7) SECONDS INR (0.9-1.3) Sodium 142 (137-145) mmol/L Potassium 3.5 (3.4-5.1) mmol/L Chloride 97 L (98-107) mmol/L Carbon Dioxide 31 (22-32) mmol/L BUN 16 (7-17) mg/dL Creatinine 1.30 H (0.52-1.04) mg/dL Estimated GFR 41.1 L (>60) mL/min BUN/Creatinine Ratio 12.3 (6-22) Glucose 104 (80-110) mg/dL Calcium 10.5 H (8.4-10.2) mg/dL Magnesium 1.5 L (1.6-2.3) mg/dL Total Bilirubin 0.4 (0.2-1.3) mg/dL AST 28 (14-36) IU/L ALT 13 (9-52) IU/L Alkaline Phosphatase 58 (38-126) U/L Total Protein 7.8 (6.3-8.2) g/dL Albumin 4.5 (3.5-5.0) g/dL Globulin 3.3 (1.7-4.1) g/dL Albumin/Globulin Ratio 1.4 (1.0-2.8) Lipase 13 L (23-300) U/L 09/25/18 Range/Units 12:22 WBC (4.5-11.0) X10^3/uL RBC (4.0-5.2) X10^6/uL Hgb (12.0-16.0) g/dL Hct (36-46) % MCV (80-100) fL MCH (26-34) PG MCHC (30-36) % RDW (11.6-14.8) % Plt Count (150-400) X10^3/uL Neut % (Auto) (50-75) % Lymph % (Auto) (25-40) % Wagoner % (Auto) (3-14) % Eos % (Auto) (2-4) % Baso % (Auto) (0-2) % Neut # (Auto) (1035-1824) /uL PT 12.5 (10.1-12.7) SECONDS INR 1.1 (0.9-1.3) Sodium (137-145) mmol/L Potassium (3.4-5.1) mmol/L Chloride (98-107) mmol/L Carbon Dioxide (22-32) mmol/L BUN (7-17) mg/dL Creatinine (0.52-1.04) mg/dL Estimated GFR (>60) mL/min BUN/Creatinine Ratio (6-22) Glucose (80-110) mg/dL Calcium (8.4-10.2) mg/dL Magnesium (1.6-2.3) mg/dL Total Bilirubin (0.2-1.3) mg/dL AST (14-36) IU/L ALT (9-52) IU/L Alkaline Phosphatase (38-126) U/L Total Protein (6.3-8.2) g/dL Albumin (3.5-5.0) g/dL Globulin (1.7-4.1) g/dL Albumin/Globulin Ratio (1.0-2.8) Lipase (23-300) U/L Imaging Data CT scan - head: Radiologist's impression: [place] [address] CT Scan Report Signed Patient: Luz Elena Willett LMR#: [id number] : 3Acct:[id number] Age/Sex: 63 / FDate of Service: 09/25/18 Loc: ED Accession Number: [id number] Procedure: CT head/brain wo con Ordering Provider: Cooper Wise PROCEDURE: CT HEAD/BRAIN WO CON INDICATIONS: Ground level fall striking back of head TECHNIQUE: Noncontrast 4.5 mm thick angled axial sections acquired from the foramen magnum to the vertex, with coronal and sagittal reformats. For radiation dose reduction, the following was used: automated exposure control, adjustment of mA and/or kV according to patient size. COMPARISON: [facility], CT, HEAD WITHOUT CONTRAST, 11/10/2017, 15:37. [facility], CT, CT HEAD/BRAIN WO CON, 08/29/2018, 16:51. FINDINGS: Image quality: Excellent. CSF spaces: Basal cisterns are patent. No extra-axial fluid collections. The ventricles are symmetric in size and shape. Brain: No intracranial bleeds. There is cerebral volume loss for age, with resultant ventricular and sulcal prominence. There are periventricular and deep white matter chronic small vessel ischemic changes. There is intracranial internal carotid artery atherosclerosis. Unchanged posterior superior right parietal low attenuation focus, suspected to be related to postsurgical change. Skull and face: The lateral postsurgical changes are present. Sinuses: Visualized sinuses and mastoids are clear. IMPRESSION: 1. No acute intracranial process. 2. Mild atrophy and chronic microvascular ischemic changes. Dictated by: Leslie Hunt M.D. on 09/25/2018 at 13:46 Approved by: Leslie Hunt M.D. on 09/25/2018 at 13:48 hip: Radiologist's impression: [address] [address] XRay Report Signed Patient: Cara Willetta LMR#: [id number] : 1955cct:[id number] Age/Sex: 63 / FDate of Service: 09/25/18 Loc: ED Accession Number: [id number] Procedure: XR hip w pel if done BILAT 2V Ordering Provider: Cooper Wise PROCEDURE: XR HIP W PEL IF DONE BILAT 2V INDICATIONS: Ground level fall pain to bilateral hips and tailbone TECHNIQUE: AP pelvis with lateral view(s) of the bilateral hip(s). COMPARISON: None. FINDINGS: Bones: No fractures or dislocations. Pelvic ring appears intact. No suspicious bony lesions. Soft tissues: The visualized bowel gas pattern is normal. No suspicious soft tissue calcifications. IMPRESSION: No visualized acute fracture or dislocation. However, if clinical concern and/or pain persist, short interval imaging followup in 7-10 days is recommended, as occult injury cannot be definitively excluded. Dictated by: Leslie Hunt M.D. on 09/25/2018 at 13:45 Approved by: Leslie Hunt M.D. on 09/25/2018 at 13:45 coccyx : Radiologist's impression: [address] [address] XRay Report Signed Patient: TamieLuz Elena LMR#: [id number] : [id number]:[id number] Age/Sex: 63 / FDate of Service: 09/25/18 Loc: ED Accession Number: [id number] Procedure: XR sacrum coccyx min 2V Ordering Provider: Cooper Wise PROCEDURE: XR SACRUM COCCYX MIN 2V INDICATIONS: Ground level fall with pain to hips and tailbone TECHNIQUE: 3 views of the sacrum and coccyx acquired. COMPARISON: [facility], CR, XR HIP W PEL IF DONE BILAT 2V, 09/25/2018, 13:23. FINDINGS: Bones: No fractures or dislocations. No suspicious bony lesions. Soft tissues: Visualized bowel gas pattern is normal. No suspicious soft tissue densities. IMPRESSION: No visualized acute fracture or dislocation. However, if clinical concern and/or pain persist, short interval imaging followup in 7-10 days is recommended, as occult injury cannot be definitively excluded. Dictated by: Leslie Hunt M.D. on 09/25/2018 at 13:45 Approved by: Leslie Hunt M.D. on 09/25/2018 at 13:46 Chest x-ray: Radiologist's impression: [place] [address] XRay Report Signed Patient: Luz Elena Willett LMR#: [id number] : [id number] Age/Sex: 63 / FDate of Service: 09/25/18 Loc: ED Accession Number: [id number] Procedure: XR chest 1V Ordering Provider: Cooper Wise PROCEDURE: XR CHEST 1V INDICATIONS: weakness and glf TECHNIQUE: One view of the chest was acquired. COMPARISON: [facility], CR, XR CHEST 1V, 04/21/2018, 13:53. FINDINGS: Surgical changes and devices: Right Port-A-Cath is noted. Lungs and pleura: The previously identified left upper lobe pulmonary opacity is not well-seen on current exam. No effusions or consolidations. Mediastinum: Mediastinal contours appear normal. Heart size is normal. Bones and chest wall: No suspicious bony lesions. Overlying soft tissues appear unremarkable. IMPRESSION: No acute pulmonary process. Dictated by: Leslie Hunt M.D. on 09/25/2018 at 13:26 Approved by: Leslie Hunt M.D. on 09/25/2018 at 13:27 ECG Data Interpretation: EKG shows sinus tachycardia. No ST elevation or depression. Ventricular rate of 1 weight. Pr interval 151. QRS duration of 113. QTC 336. MDM Narrative Medical decision making narrative: Head CT was obtained was negative for any acute findings. Chest x-ray and hip along with coccyx sacrum x-rays were obtained were also negative for any acute findings. Signs symptoms presents as contusion to the buttocks. CBC was obtained was a unremarkable. Chemistry panel shows decreased GFR an increased creatinine that is at the same level where she was on 13 September. Suspect this may also be to patient not drinking much fluids. [id number] Tylenol as needed for any discomfort. Patient's are was elevated in the emergency room. She was given fluids and her heart rate normalized. Patient is encouraged to drink more fluids. Follow up with primary care provider later this week. For any worsening symptoms return to the emergency room. <Manuel Bryson DO - Last Filed: 09/27/18 10:08> Lab Data Lab Results 09/25/18 09/25/18 09/25/18 Range/Units 12:22 12:22 12:22 WBC 6.7 (4.5-11.0) X10^3/uL RBC 4.04 (4.0-5.2) X10^6/uL Hgb 13.4 (12.0-16.0) g/dL Hct 40.2 (36-46) % MCV 99.6 (80-100) fL MCH 33.2 (26-34) PG MCHC 33.3 (30-36) % RDW 16.5 H (11.6-14.8) % Plt Count 222 (150-400) X10^3/uL Neut % (Auto) 46.7 L (50-75) % Lymph % (Auto) 43.1 H (25-40) % Wagoner % (Auto) 7.6 (3-14) % Eos % (Auto) 1.7 L (2-4) % Baso % (Auto) 0.9 (0-2) % Neut # (Auto) 3100 (9791-7470) /uL PT (10.1-12.7) SECONDS INR (0.9-1.3) Sodium 142 (137-145) mmol/L Potassium 3.5 (3.4-5.1) mmol/L Chloride 97 L (98-107) mmol/L Carbon Dioxide 31 (22-32) mmol/L BUN 16 (7-17) mg/dL Creatinine 1.30 H (0.52-1.04) mg/dL Estimated GFR 41.1 L (>60) mL/min BUN/Creatinine Ratio 12.3 (6-22) Glucose 104 (80-110) mg/dL Calcium 10.5 H (8.4-10.2) mg/dL Magnesium 1.5 L (1.6-2.3) mg/dL Total Bilirubin 0.4 (0.2-1.3) mg/dL AST 28 (14-36) IU/L ALT 13 (9-52) IU/L Alkaline Phosphatase 58 (38-126) U/L Total Protein 7.8 (6.3-8.2) g/dL Albumin 4.5 (3.5-5.0) g/dL Globulin 3.3 (1.7-4.1) g/dL Albumin/Globulin Ratio 1.4 (1.0-2.8) Lipase 13 L (23-300) U/L // Range/Units 12:22 WBC (4.5-11.0) X10^3/uL RBC (4.0-5.2) X10^6/uL Hgb (12.0-16.0) g/dL Hct (36-46) % MCV (80-100) fL MCH (26-34) PG MCHC (30-36) % RDW (11.6-14.8) % Plt Count (150-400) X10^3/uL Neut % (Auto) (50-75) % Lymph % (Auto) (25-40) % Wagoner % (Auto) (3-14) % Eos % (Auto) (2-4) % Baso % (Auto) (0-2) % Neut # (Auto) (8808-4446) /uL PT 12.5 (10.1-12.7) SECONDS INR 1.1 (0.9-1.3) Sodium (137-145) mmol/L Potassium (3.4-5.1) mmol/L Chloride (98-107) mmol/L Carbon Dioxide (22-32) mmol/L BUN (7-17) mg/dL Creatinine (0.52-1.04) mg/dL Estimated GFR (>60) mL/min BUN/Creatinine Ratio (6-22) Glucose (80-110) mg/dL Calcium (8.4-10.2) mg/dL Magnesium (1.6-2.3) mg/dL Total Bilirubin (0.2-1.3) mg/dL AST (14-36) IU/L ALT (9-52) IU/L Alkaline Phosphatase (38-126) U/L Total Protein (6.3-8.2) g/dL Albumin (3.5-5.0) g/dL Globulin (1.7-4.1) g/dL Albumin/Globulin Ratio (1.0-2.8) Lipase (23-300) U/L Discharge Plan Departure Patient Disposition: Home Clinical Impression: Contusion of buttock, Minor closed head injury Discharge Date/Time: 09/25/18 15:22 Interventions: ED Discharge Assessment Last Done: 09/25/18 15:21 Instructions: DI for Closed Head Injury Activity Restrictions/Additional Instructions: Imaging today was unremarkable. Laboratory results show a decreased kidney function. Make sure you are drinking plenty of fluids. Follow up in the next few days with her primary care provider. Head injury instructions are provided with warning signs return to the emergency room. Pain into the buttocks area presents as contusion. Use [id number] Tylenol as needed for any discomfort. For any worsening symptoms return to the emergency room. Prescriptions: No Action calcium citrate-vitamin D3 [Citracal Regular] 250 MG/200 IU tablet 1 tab PO QDAY Qty: 0 RF: 0 cetirizine 10 MG tablet 10 mg PO QDAY Qty: 30 RF: 3 ranitidine HCl 75 MG tablet 75 mg PO QDAY Qty: 0 RF: 0 levetiracetam [Keppra] 500 MG tablet 500 mg PO BID Qty: 60 RF: 9 docusate sodium [Colace] 100 MG capsule 100 mg PO QDAY Qty: 0 RF: 0 bupropion HCl [Wellbutrin SR] 150 mg tablet extended release 12 hr 150 mg PO BID Qty: 180 RF: 2 fluconazole 200 mg tablet 200 mg PO DAILY Qty: 7 RF: 0 prednisone 2.5 mg tablet 2.5 mg PO DAILY Qty: 30 RF: 0 mirtazapine 7.5 mg tablet 7.5 mg PO DAILY Qty: 30 RF: 3 albuterol sulfate [Ventolin HFA] 90 MCG/PUFF HFA aerosol inhaler 2 puff INH Q4HP PRN (Reason: Adequate Ventilation) RF: 0 melatonin 3 mg Tablet 3 mg PO BEDTIME PRN (Reason: Agitation) RF: 0 folic acid 1 mg Tablet 1 mg PO DAILY Qty: 90 RF: 1 ondansetron 8 mg Tablet,Disintegrating 8 mg PO TID PRN (Reason: Nausea) RF: 0 levothyroxine [Unithroid] 75 mcg Tablet 150 mcg PO DAILY 90 Days Qty: 90 RF: 0 prednisone 5 mg tablet 2.5 mg PO DAILY RF: 0 Referrals: Dank Leong MD [Primary Care Provider] - <Manuel Bryson DO - Last Filed: 09/27/18 10:08> Cosign ED Attending Cosignature Attestation: I was immediately available in the department for consultation. Documentation has been reviewed. I agree with assessment and plan.
[2018-09-25 12:40] VITALS: BP 124/82; PULSE 114; RESP 16; TEMP 36.9; O2SAT 100
--- NOTE | 2018-09-25 12:43 | DI.RAD.S_ITS ---
PROCEDURE: XR CHEST 1V INDICATIONS: weakness and glf TECHNIQUE: One view of the chest was acquired. COMPARISON: [facility], , XR CHEST 1V, 04/21/2018, 13:53. FINDINGS: Surgical changes and devices: Right Port-A-Cath is noted. Lungs and pleura: The previously identified left upper lobe pulmonary opacity is not well-seen on current exam. No effusions or consolidations. Mediastinum: Mediastinal contours appear normal. Heart size is normal. Bones and chest wall: No suspicious bony lesions. Overlying soft tissues appear unremarkable. IMPRESSION: No acute pulmonary process. Dictated by: Leslie Hunt M.D. on 09/25/2018 at 13:26 Approved by: Leslie Hunt M.D. on 09/25/2018 at 13:27
[2018-09-25 13:05] LABS: Add Manual Diff / Slide Review NO; Basophils Percent Auto 0.9 % (0-2); Eosinophils Percent Auto 1.7 % (2-4); Hematocrit 40.2 % (36-46); Hemoglobin 13.4 g/dL (12.0-16.0); Lymphocytes Percent Auto 43.1 % (25-40); Mean Corpuscular HGB Conc 33.3 % (30-36); Mean Corpuscular Hemoglobin 33.2 PG (26-34); Mean Corpuscular Volume 99.6 fL (80-100); Monocytes Percent Auto 7.6 % (3-14); Neutrophils Absolute Auto 3100 /uL (3000-5900); Neutrophils Percent Auto 46.7 % (50-75); Platelet Count 222 X10^3/uL (150-400); Red Blood Cell Count 4.04 X10^6/uL (4.0-5.2); Red Cell Distribution Width 16.5 % (11.6-14.8); White Blood Cell Count 6.7 X10^3/uL (4.5-11.0)
--- NOTE | 2018-09-25 13:05 | DI.RAD.S_ITS ---
PROCEDURE: XR HIP W PEL IF DONE BILAT 2V INDICATIONS: Ground level fall pain to bilateral hips and tailbone TECHNIQUE: AP pelvis with lateral view(s) of the bilateral hip(s). COMPARISON: None. FINDINGS: Bones: No fractures or dislocations. Pelvic ring appears intact. No suspicious bony lesions. Soft tissues: The visualized bowel gas pattern is normal. No suspicious soft tissue calcifications. IMPRESSION: No visualized acute fracture or dislocation. However, if clinical concern and/or pain persist, short interval imaging followup in 7-10 days is recommended, as occult injury cannot be definitively excluded. Dictated by: Leslie Hunt M.D. on 09/25/2018 at 13:45 Approved by: Leslie Hunt M.D. on 09/25/2018 at 13:45
--- NOTE | 2018-09-25 13:05 | DI.CT.S_ITS ---
PROCEDURE: CT HEAD/BRAIN WO CON INDICATIONS: Ground level fall striking back of head TECHNIQUE: Noncontrast 4.5 mm thick angled axial sections acquired from the foramen magnum to the vertex, with coronal and sagittal reformats. For radiation dose reduction, the following was used: automated exposure control, adjustment of mA and/or kV according to patient size. COMPARISON: [facility], CT, HEAD WITHOUT CONTRAST, 11/10/2017, 15:37. [facility], CT, CT HEAD/BRAIN WO CON, 08/29/2018, 16:51. FINDINGS: Image quality: Excellent. CSF spaces: Basal cisterns are patent. No extra-axial fluid collections. The ventricles are symmetric in size and shape. Brain: No intracranial bleeds. There is cerebral volume loss for age, with resultant ventricular and sulcal prominence. There are periventricular and deep white matter chronic small vessel ischemic changes. There is intracranial internal carotid artery atherosclerosis. Unchanged posterior superior right parietal low attenuation focus, suspected to be related to postsurgical change. Skull and face: The lateral postsurgical changes are present. Sinuses: Visualized sinuses and mastoids are clear. IMPRESSION: 1. No acute intracranial process. 2. Mild atrophy and chronic microvascular ischemic changes. Dictated by: Leslie Hunt M.D. on 09/25/2018 at 13:46 Approved by: Leslie Hunt M.D. on 09/25/2018 at 13:48
--- NOTE | 2018-09-25 13:05 | DI.RAD.S_ITS ---
PROCEDURE: XR SACRUM COCCYX MIN 2V INDICATIONS: Ground level fall with pain to hips and tailbone TECHNIQUE: 3 views of the sacrum and coccyx acquired. COMPARISON: [facility], CR, XR HIP W PEL IF DONE BILAT 2V, 09/25/2018, 13:23. FINDINGS: Bones: No fractures or dislocations. No suspicious bony lesions. Soft tissues: Visualized bowel gas pattern is normal. No suspicious soft tissue densities. IMPRESSION: No visualized acute fracture or dislocation. However, if clinical concern and/or pain persist, short interval imaging followup in 7-10 days is recommended, as occult injury cannot be definitively excluded. Dictated by: Leslie Hunt M.D. on 09/25/2018 at 13:45 Approved by: Leslie Hunt M.D. on 09/25/2018 at 13:46
[2018-09-25 13:12] LABS: Alanine Aminotransferase 13 IU/L (9-52); Albumin 4.5 g/dL (3.5-5.0); Albumin Globulin Ratio 1.4 (1.0-2.8); Alkaline Phosphatase 58 U/L (38-126); Aspartate Aminotransferase 28 IU/L (14-36); BUN Creatinine Ratio 12.3 (6-22); Bilirubin Total 0.4 mg/dL (0.2-1.3); Blood Urea Nitrogen 16 mg/dL (7-17); Calcium 10.5 mg/dL (8.4-10.2); Carbon Dioxide 31 mmol/L (22-32); Chloride 97 mmol/L (98-107); Estimated Glomerular Filt Rate 41.1 mL/min (>60); Globulin 3.3 g/dL (1.7-4.1); Glucose 104 mg/dL (80-110); HEMOLYSIS < 15 (0-50); Lipase 13 U/L (23-300); Potassium 3.5 mmol/L (3.4-5.1); Sodium 142 mmol/L (137-145); Total Protein 7.8 g/dL (6.3-8.2)
[2018-09-25 13:14] LABS: Magnesium 1.5 mg/dL (1.6-2.3)
[2018-09-25] MEDS: SODIUM CHLORIDE 0.9% 1,000 ML 1000 ML IV (13:14)
[2018-09-25 13:50] LABS: INR 1.1 (0.9-1.3); Prothrombin Time 12.5 SECONDS (10.1-12.7)
[2018-09-25 13:55] VITALS: BP 114/80; PULSE 102; RESP 14; O2SAT 97
--- NOTE | 2018-09-25 14:03 | ED_ITS ---
HPI - Fall <Cooper WiseMATTHEW - Last Filed: 09/25/18 22:15> General Chief Complaint: Fall Stated Complaint: Ground Level Fall Time Seen by Provider: 09/25/18 12:37 Source: patient Mode of arrival: EMS Limitations: no limitations History of Present Illness HPI Narrative: 63-year-old female with history of lung cancer and is a prior smoker here for complaint of ground level fall prior to arrival. She was walking with a cane and stumbled over her feet. She landed on her buttocks area. She complains of having pain into her bilateral hips and tailbone area. She also states she did hit her head however she did not lose consciousness. No nausea or vomiting. She denies any neck pain. No chest pain. No abdominal pain. Increased pain with palpation to bilateral hips. She denies any other concerns or complaints at this time. Related Data Home Medications Medication Instructions Recorded Confirmed calcium citrate-vitamin D3 1 tab PO QDAY #0 12/03/16 09/14/18 [Citracal Regular] ranitidine HCl 75 mg PO QDAY #0 12/10/17 09/14/18 docusate sodium [Colace] 100 mg PO QDAY #0 01/05/18 09/14/18 albuterol sulfate [Ventolin HFA] 2 puff INH Q4HP PRN 03/16/18 09/14/18 melatonin 3 mg PO BEDTIME PRN 04/26/18 09/14/18 ondansetron 8 mg PO TID PRN 08/02/18 09/14/18 prednisone 2.5 mg PO DAILY 08/29/18 09/14/18 Previous Rx's Medication Instructions Recorded cetirizine 10 mg PO QDAY #30 tab 01/27/17 levetiracetam [Keppra] 500 mg PO BID #60 12/10/17 bupropion HCl [Wellbutrin SR] 150 mg PO BID #180 tab 04/14/18 folic acid 1 mg PO DAILY #90 tab 07/29/18 levothyroxine [Unithroid] 150 mcg PO DAILY 90 Days #90 tab 08/23/18 mirtazapine 7.5 mg tablet 7.5 mg PO DAILY #30 tab 09/14/18 prednisone 2.5 mg tablet 2.5 mg PO DAILY #30 tab 09/14/18 fluconazole 200 mg tablet 200 mg PO DAILY #7 tab 09/17/18 Allergies Allergy/AdvReac Type Severity Reaction Status Date / Time bacitracin Allergy Mild ITCHING Verified 09/25/18 12:41 [From NEOSPORIN ([id number])] neomycin Allergy Mild ITCHING Verified 09/25/18 12:41 [From NEOSPORIN ([id number])] polymyxin B Allergy Mild ITCHING Verified 09/25/18 12:41 [From NEOSPORIN ([id number])] diphenhydramine AdvReac Mild ELEVATED Verified 09/25/18 12:41 [DIPHENHYDRAMINE] HEART RATE erythromycin base AdvReac Mild Difficulty Verified 09/25/18 12:41 [ERYTHROMYCIN BASE] Breathing caffeine [From CAFERGOT] AdvReac Unknown ELEVATED Verified 09/25/18 12:41 HR, MIGRAINE ergotamine [From CAFERGOT] AdvReac Unknown ELEVATED Verified 09/25/18 12:41 HR, MIGRAINE Review of Systems <MATTHEW Grijalva - Last Filed: 09/25/18 22:15> Constitutional Denies chills, Denies fever(s), Denies lethargy and Denies weakness Eyes Denies change in vision, Denies eye discharge, Denies irritation and Denies loss of vision ENT Ears, Nose, Mouth, and Throat: Denies change in voice, Denies neck pain and Denies sore throat Cardiovascular Denies chest pain, Denies irregular heart rhythm, Denies lightheadedness, Denies palpitations, Denies dyspnea, Denies dyspnea on exertion and Denies orthopnea Respiratory Denies cough, Denies dyspnea, Denies dyspnea on exertion and Denies wheezing Gastrointestinal Gastrointestinal: Denies abdominal pain, Denies change in bowel habits, Denies diarrhea, Denies nausea and Denies vomiting Genitourinary Denies hematuria, Denies flank pain, Denies urinary incontinence and Denies urinary urgency Musculoskeletal Denies neck pain Comments: Pain to bilateral hips and tailbone Integumentary/Breasts Denies pruritus, Denies erythema, Denies rash and Denies wounds Neurologic Denies confusion, Denies loss of vision and Denies weakness Comments: Ground level fall hitting hit Psychiatric Denies anxiety, Denies confusion, Denies depression, Denies homicidal ideation and Denies suicidal ideation Endocrine Denies palpitations Hematologic/Lymphatic Denies easy bruising Allergic/Immunologic Denies wheezing Exam <MATTHEW Grijalva - Last Filed: 09/25/18 22:15> Initial Vital Signs Initial Vital Signs: Vital Signs Temperature 98.5 F 09/25/18 12:38 Pulse Rate 116 H 09/25/18 12:38 Respiratory Rate 20 09/25/18 12:38 Blood Pressure 124/82 09/25/18 12:38 Pulse Oximetry 98 09/25/18 12:38 Const General: cooperative and well developed Nutritional Appearance: well nourished Orientation: alert, awake, oriented x3 and not confused [facility] Head: normal to inspection, normocephalic, atraumatic, No Alegria's sign, No contusion, No hematoma, No laceration, No palpable skull fracture, No raccoon eyes and No scalp lesion Mouth: oral mucosae normal and oropharynx normal Eyes Conjunctivae: conjunctivae normal Sclera: sclerae normal Pupils: PERRL EOM: EOM intact bilaterally Neck Neck: normal visual inspection, trachea midline, No lymphadenopathy, No midline deformity and No JVD Lymphatic: No lymphedema Chest Chest: normal inspection of the chest Resp Effort & Inspection: normal respiratory effort, able to speak in complete sentences, no respiratory distress and no use of accessory muscles Auscultation: clear to auscultation bilaterally, no rales, no rhonchi and no wheezes Cardio Rate: regular rate Rhythm: regular rhythm Heart Sounds: no click, no gallops, no murmurs and no rubs Pulses: normal peripheral pulses GI Inspection: non-distended Palpation: soft, no hepatosplenomegaly, No guarding, No pulsatile mass and No tender Auscultation: normal bowel sounds Skin General: no rashes or lesions noted, No jaundice and No petechiae Neuro General: alert, oriented x3, gait normal and no focal motor deficits Speech: speech normal <Manuel Bryson DO - Last Filed: 09/27/18 10:08> Initial Vital Signs Initial Vital Signs: Vital Signs Temperature 98.5 F 09/25/18 12:38 Pulse Rate 116 H 09/25/18 12:38 Respiratory Rate 20 09/25/18 12:38 Blood Pressure 124/82 09/25/18 12:38 Pulse Oximetry 98 09/25/18 12:38 Course <MATTHEW Grijalva - Last Filed: 09/25/18 22:15> Orders Ordered: Discontinued Medications Sodium Chloride (Normal Saline 0.9%) 1,000 mls @ 1,000 mls/hr IV BOLUS ONE Stop: 09/25/18 13:42 Last Infusion: 09/25/18 15:20 Dose: 0 mls/hr Admin: 09/25/18 13:14 Dose: 1,000 mls/hr Vital Signs - 8 hr 09/25/18 15:00 Pulse Rate 93 H Respiratory Rate 24 Blood Pressure [Left Arm] 111/72 Pulse Oximetry 99 <Manuel Bryson DO - Last Filed: 09/27/18 10:08> Orders Ordered: Discontinued Medications Sodium Chloride (Normal Saline 0.9%) 1,000 mls @ 1,000 mls/hr IV BOLUS ONE Stop: 09/25/18 13:42 Last Infusion: 09/25/18 15:20 Dose: 0 mls/hr Admin: 09/25/18 13:14 Dose: 1,000 mls/hr Vital Signs - 8 hr 09/25/18 15:00 Pulse Rate 93 H Respiratory Rate 24 Blood Pressure [Left Arm] 111/72 Pulse Oximetry 99 MDM - Fall <MATTHEW Grijalva - Last Filed: 09/25/18 22:15> Lab Data Result diagrams: 09/25/18 12:22 09/25/18 12:22 Lab Results 09/25/18 09/25/18 09/25/18 Range/Units 12:22 12:22 12:22 WBC 6.7 (4.5-11.0) X10^3/uL RBC 4.04 (4.0-5.2) X10^6/uL Hgb 13.4 (12.0-16.0) g/dL Hct 40.2 (36-46) % MCV 99.6 (80-100) fL MCH 33.2 (26-34) PG MCHC 33.3 (30-36) % RDW 16.5 H (11.6-14.8) % Plt Count 222 (150-400) X10^3/uL Neut % (Auto) 46.7 L (50-75) % Lymph % (Auto) 43.1 H (25-40) % [place] % (Auto) 7.6 (3-14) % Eos % (Auto) 1.7 L (2-4) % Baso % (Auto) 0.9 (0-2) % Neut # (Auto) 3100 (1343-6895) /uL PT (10.1-12.7) SECONDS INR (0.9-1.3) Sodium 142 (137-145) mmol/L Potassium 3.5 (3.4-5.1) mmol/L Chloride 97 L (98-107) mmol/L Carbon Dioxide 31 (22-32) mmol/L BUN 16 (7-17) mg/dL Creatinine 1.30 H (0.52-1.04) mg/dL Estimated GFR 41.1 L (>60) mL/min BUN/Creatinine Ratio 12.3 (6-22) Glucose 104 (80-110) mg/dL Calcium 10.5 H (8.4-10.2) mg/dL Magnesium 1.5 L (1.6-2.3) mg/dL Total Bilirubin 0.4 (0.2-1.3) mg/dL AST 28 (14-36) IU/L ALT 13 (9-52) IU/L Alkaline Phosphatase 58 (38-126) U/L Total Protein 7.8 (6.3-8.2) g/dL Albumin 4.5 (3.5-5.0) g/dL Globulin 3.3 (1.7-4.1) g/dL Albumin/Globulin Ratio 1.4 (1.0-2.8) Lipase 13 L (23-300) U/L 09/25/18 Range/Units 12:22 WBC (4.5-11.0) X10^3/uL RBC (4.0-5.2) X10^6/uL Hgb (12.0-16.0) g/dL Hct (36-46) % MCV (80-100) fL MCH (26-34) PG MCHC (30-36) % RDW (11.6-14.8) % Plt Count (150-400) X10^3/uL Neut % (Auto) (50-75) % Lymph % (Auto) (25-40) % [place] % (Auto) (3-14) % Eos % (Auto) (2-4) % Baso % (Auto) (0-2) % Neut # (Auto) (3815-8528) /uL PT 12.5 (10.1-12.7) SECONDS INR 1.1 (0.9-1.3) Sodium (137-145) mmol/L Potassium (3.4-5.1) mmol/L Chloride (98-107) mmol/L Carbon Dioxide (22-32) mmol/L BUN (7-17) mg/dL Creatinine (0.52-1.04) mg/dL Estimated GFR (>60) mL/min BUN/Creatinine Ratio (6-22) Glucose (80-110) mg/dL Calcium (8.4-10.2) mg/dL Magnesium (1.6-2.3) mg/dL Total Bilirubin (0.2-1.3) mg/dL AST (14-36) IU/L ALT (9-52) IU/L Alkaline Phosphatase (38-126) U/L Total Protein (6.3-8.2) g/dL Albumin (3.5-5.0) g/dL Globulin (1.7-4.1) g/dL Albumin/Globulin Ratio (1.0-2.8) Lipase (23-300) U/L Imaging Data CT scan - head: Radiologist's impression: [place] [address] CT Scan Report Signed Patient: Luz Elena Willett LMR#: [id number] : 3Acct:[id number] Age/Sex: 63 / FDate of Service: 09/25/18 Loc: ED Accession Number: [id number] Procedure: CT head/brain wo con Ordering Provider: Cooper Wise PROCEDURE: CT HEAD/BRAIN WO CON INDICATIONS: Ground level fall striking back of head TECHNIQUE: Noncontrast 4.5 mm thick angled axial sections acquired from the foramen magnum to the vertex, with coronal and sagittal reformats. For radiation dose reduction, the following was used: automated exposure control, adjustment of mA and/or kV according to patient size. COMPARISON: [facility], CT, HEAD WITHOUT CONTRAST, 11/10/2017, 15:37. [facility], CT, CT HEAD/BRAIN WO CON, 08/29/2018, 16:51. FINDINGS: Image quality: Excellent. CSF spaces: Basal cisterns are patent. No extra-axial fluid collections. The ventricles are symmetric in size and shape. Brain: No intracranial bleeds. There is cerebral volume loss for age, with resultant ventricular and sulcal prominence. There are periventricular and deep white matter chronic small vessel ischemic changes. There is intracranial internal carotid artery atherosclerosis. Unchanged posterior superior right parietal low attenuation focus, suspected to be related to postsurgical change. Skull and face: The lateral postsurgical changes are present. Sinuses: Visualized sinuses and mastoids are clear. IMPRESSION: 1. No acute intracranial process. 2. Mild atrophy and chronic microvascular ischemic changes. Dictated by: Leslie Hunt M.D. on 09/25/2018 at 13:46 Approved by: Leslie Hunt M.D. on 09/25/2018 at 13:48 hip: Radiologist's impression: [address] [address] XRay Report Signed Patient: Cara Willetta LMR#: [id number] : 1955cct:[id number] Age/Sex: 63 / FDate of Service: 09/25/18 Loc: ED Accession Number: [id number] Procedure: XR hip w pel if done BILAT 2V Ordering Provider: Cooper Wise PROCEDURE: XR HIP W PEL IF DONE BILAT 2V INDICATIONS: Ground level fall pain to bilateral hips and tailbone TECHNIQUE: AP pelvis with lateral view(s) of the bilateral hip(s). COMPARISON: None. FINDINGS: Bones: No fractures or dislocations. Pelvic ring appears intact. No suspicious bony lesions. Soft tissues: The visualized bowel gas pattern is normal. No suspicious soft tissue calcifications. IMPRESSION: No visualized acute fracture or dislocation. However, if clinical concern and/or pain persist, short interval imaging followup in 7-10 days is recommended , as occult injury cannot be definitively excluded. Dictated by: Leslie Hunt M.D. on 09/25/2018 at 13:45 Approved by: Leslie Hunt M.D. on 09/25/2018 at 13:45 coccyx : Radiologist's impression: [address] [address] XRay Report Signed Patient: TamieLuz Elena LMR#: [id number] : 1955cct:[id number] Age/Sex: 63 / FDate of Service: 09/25/18 Loc: ED Accession Number: [id number] Procedure: XR sacrum coccyx min 2V Ordering Provider: Cooper Wise PROCEDURE: XR SACRUM COCCYX MIN 2V INDICATIONS: Ground level fall with pain to hips and tailbone TECHNIQUE: 3 views of the sacrum and coccyx acquired. COMPARISON: [facility], CR, XR HIP W PEL IF DONE BILAT 2V, 09/25/2018, 13: 23. FINDINGS: Bones: No fractures or dislocations. No suspicious bony lesions. Soft tissues: Visualized bowel gas pattern is normal. No suspicious soft tissue densities. IMPRESSION: No visualized acute fracture or dislocation. However, if clinical concern and/or pain persist, short interval imaging followup in 7-10 days is recommended , as occult injury cannot be definitively excluded. Dictated by: Leslie Hunt M.D. on 09/25/2018 at 13:45 Approved by: Leslie Hunt M.D. on 09/25/2018 at 13:46 Chest x-ray: Radiologist's impression: [place] [address] XRay Report Signed Patient: Luz Elena Willett LMR#: [id number] : [id number]:[id number] Age/Sex: 63 / FDate of Service: 09/25/18 Loc: ED Accession Number: [id number] Procedure: XR chest 1V Ordering Provider: Cooper Wise PROCEDURE: XR CHEST 1V INDICATIONS: weakness and glf TECHNIQUE: One view of the chest was acquired. COMPARISON: [facility], CR, XR CHEST 1V, 04/21/2018, 13:53. FINDINGS: Surgical changes and devices: Right Port-A-Cath is noted. Lungs and pleura: The previously identified left upper lobe pulmonary opacity is not well-seen on current exam. No effusions or consolidations. Mediastinum: Mediastinal contours appear normal. Heart size is normal. Bones and chest wall: No suspicious bony lesions. Overlying soft tissues appear unremarkable. IMPRESSION: No acute pulmonary process. Dictated by: Leslie Hunt M.D. on 09/25/2018 at 13:26 Approved by: Leslie Hunt M.D. on 09/25/2018 at 13:27 ECG Data Interpretation: EKG shows sinus tachycardia. No ST elevation or depression. Ventricular rate of 1 weight. Pr interval 151. QRS duration of 113. QTC 336. MDM Narrative Medical decision making narrative: Head CT was obtained was negative for any acute findings. Chest x-ray and hip along with coccyx sacrum x-rays were obtained were also negative for any acute findings. Signs symptoms presents as contusion to the buttocks. CBC was obtained was a unremarkable. Chemistry panel shows decreased GFR an increased creatinine that is at the same level where she was on 13 September. Suspect this may also be to patient not drinking much fluids. [id number] Tylenol as needed for any discomfort. Patient's are was elevated in the emergency room. She was given fluids and her heart rate normalized. Patient is encouraged to drink more fluids. Follow up with primary care provider later this week. For any worsening symptoms return to the emergency room. <Manuel Bryson DO - Last Filed: 09/27/18 10:08> Lab Data Lab Results 09/25/18 09/25/18 09/25/18 Range/Units 12:22 12:22 12:22 WBC 6.7 (4.5-11.0) X10^3/uL RBC 4.04 (4.0-5.2) X10^6/uL Hgb 13.4 (12.0-16.0) g/dL Hct 40.2 (36-46) % MCV 99.6 (80-100) fL MCH 33.2 (26-34) PG MCHC 33.3 (30-36) % RDW 16.5 H (11.6-14.8) % Plt Count 222 (150-400) X10^3/uL Neut % (Auto) 46.7 L (50-75) % Lymph % (Auto) 43.1 H (25-40) % [place] % (Auto) 7.6 (3-14) % Eos % (Auto) 1.7 L (2-4) % Baso % (Auto) 0.9 (0-2) % Neut # (Auto) 3100 (6252-4215) /uL PT (10.1-12.7) SECONDS INR (0.9-1.3) Sodium 142 (137-145) mmol/L Potassium 3.5 (3.4-5.1) mmol/L Chloride 97 L (98-107) mmol/L Carbon Dioxide 31 (22-32) mmol/L BUN 16 (7-17) mg/dL Creatinine 1.30 H (0.52-1.04) mg/dL Estimated GFR 41.1 L (>60) mL/min BUN/Creatinine Ratio 12.3 (6-22) Glucose 104 (80-110) mg/dL Calcium 10.5 H (8.4-10.2) mg/dL Magnesium 1.5 L (1.6-2.3) mg/dL Total Bilirubin 0.4 (0.2-1.3) mg/dL AST 28 (14-36) IU/L ALT 13 (9-52) IU/L Alkaline Phosphatase 58 (38-126) U/L Total Protein 7.8 (6.3-8.2) g/dL Albumin 4.5 (3.5-5.0) g/dL Globulin 3.3 (1.7-4.1) g/dL Albumin/Globulin Ratio 1.4 (1.0-2.8) Lipase 13 L (23-300) U/L // Range/Units 12:22 WBC (4.5-11.0) X10^3/uL RBC (4.0-5.2) X10^6/uL Hgb (12.0-16.0) g/dL Hct (36-46) % MCV (80-100) fL MCH (26-34) PG MCHC (30-36) % RDW (11.6-14.8) % Plt Count (150-400) X10^3/uL Neut % (Auto) (50-75) % Lymph % (Auto) (25-40) % [place] % (Auto) (3-14) % Eos % (Auto) (2-4) % Baso % (Auto) (0-2) % Neut # (Auto) (4500-2829) /uL PT 12.5 (10.1-12.7) SECONDS INR 1.1 (0.9-1.3) Sodium (137-145) mmol/L Potassium (3.4-5.1) mmol/L Chloride (98-107) mmol/L Carbon Dioxide (22-32) mmol/L BUN (7-17) mg/dL Creatinine (0.52-1.04) mg/dL Estimated GFR (>60) mL/min BUN/Creatinine Ratio (6-22) Glucose (80-110) mg/dL Calcium (8.4-10.2) mg/dL Magnesium (1.6-2.3) mg/dL Total Bilirubin (0.2-1.3) mg/dL AST (14-36) IU/L ALT (9-52) IU/L Alkaline Phosphatase (38-126) U/L Total Protein (6.3-8.2) g/dL Albumin (3.5-5.0) g/dL Globulin (1.7-4.1) g/dL Albumin/Globulin Ratio (1.0-2.8) Lipase (23-300) U/L Discharge Plan Departure Patient Disposition: Home Clinical Impression: Contusion of buttock, Minor closed head injury Discharge Date/Time: 09/25/18 15:22 Interventions: ED Discharge Assessment Last Done: 09/25/18 15:21 Instructions: DI for Closed Head Injury Activity Restrictions/Additional Instructions: Imaging today was unremarkable. Laboratory results show a decreased kidney function. Make sure you are drinking plenty of fluids. Follow up in the next few days with her primary care provider. Head injury instructions are provided with warning signs return to the emergency room. Pain into the buttocks area presents as contusion. Use [id number] Tylenol as needed for any discomfort. For any worsening symptoms return to the emergency room. Prescriptions: No Action calcium citrate-vitamin D3 [Citracal Regular] 250 MG/200 IU tablet 1 tab PO QDAY Qty: 0 RF: 0 cetirizine 10 MG tablet 10 mg PO QDAY Qty: 30 RF: 3 ranitidine HCl 75 MG tablet 75 mg PO QDAY Qty: 0 RF: 0 levetiracetam [Keppra] 500 MG tablet 500 mg PO BID Qty: 60 RF: 9 docusate sodium [Colace] 100 MG capsule 100 mg PO QDAY Qty: 0 RF: 0 bupropion HCl [Wellbutrin SR] 150 mg tablet extended release 12 hr 150 mg PO BID Qty: 180 RF: 2 fluconazole 200 mg tablet 200 mg PO DAILY Qty: 7 RF: 0 prednisone 2.5 mg tablet 2.5 mg PO DAILY Qty: 30 RF: 0 mirtazapine 7.5 mg tablet 7.5 mg PO DAILY Qty: 30 RF: 3 albuterol sulfate [Ventolin HFA] 90 MCG/PUFF HFA aerosol inhaler 2 puff INH Q4HP PRN (Reason: Adequate Ventilation) RF: 0 melatonin 3 mg Tablet 3 mg PO BEDTIME PRN (Reason: Agitation) RF: 0 folic acid 1 mg Tablet 1 mg PO DAILY Qty: 90 RF: 1 ondansetron 8 mg Tablet,Disintegrating 8 mg PO TID PRN (Reason: Nausea) RF: 0 levothyroxine [Unithroid] 75 mcg Tablet 150 mcg PO DAILY 90 Days Qty: 90 RF: 0 prednisone 5 mg tablet 2.5 mg PO DAILY RF: 0 Referrals: Dank Leong MD [Primary Care Provider] - <Manuel Bryson DO - Last Filed: 09/27/18 10:08> Cosign ED Attending Cosignature Attestation: I was immediately available in the department for consultation. Documentation has been reviewed. I agree with assessment and plan.
[2018-09-25 15:00] VITALS: BP 111/72; PULSE 93; RESP 24; O2SAT 99
== END 2018-09-25 15:22 | disposition home or self-care (01) ==
PROVIDERS: Emergency Provider Nurse Practitioner Family; Family Provider Family Medicine; PCP Family Medicine
DX: S00.90XA Unspecified superficial injury of unspecified part of head, initial encounter (principal); S30.0XXA Contusion of lower back and pelvis, initial encounter; W18.30XA Fall on same level, unspecified, initial encounter; M25.559 Pain in unspecified hip
CPT/HCPCS: 70450; 71045; 72220; 73521; 80053; 83690; 83735; 85025; 85610; 93005; 96360; 96361; 99283; 99285

== ENCOUNTER → 2018-10-04 09:59 | Outpatient (CLI) | payer MEDICARE, OTHER, SELFPAY ==
--- NOTE | 2018-10-04 11:46 | DI.CT.S_ITS ---
PROCEDURE: CT CHEST ABD PEL W CON INDICATIONS: Restaging non-small cell lung cancer TECHNIQUE: After the administration of oral and intravenous contrast, 5 mm thick sections acquired from the lung apices to the symphysis. 5 mm coronal and sagittal reformats were performed, with additional 7 mm coronal MIP reformats through the lungs. For radiation dose reduction, the following was used: automated exposure control, adjustment of mA and/or kV according to patient size. COMPARISON: [facility], US, US PELVIC COMPLETE, 08/31/2018, 9:27. [facility], CT, CHEST/ABD/PEL WITH CONTRAST, 02/01/2018, 10:02. [facility], CT, CT CHEST ABD PEL W CON, 07/01/2018, 7:49. FINDINGS: Image quality: Excellent. CHEST: Lungs and pleura: No acute consolidation. Previously dominant left upper lobe nodule measuring 1.0 x 0.8 cm, previously 2.5 x 2.2 cm. There is also a less conspicuous appearance of the groundglass subcentimeter nodular focus image 37 series 3 in the posterior right lower lobe. No pleural effusions or pneumothorax. Central and peripheral airways appear patent and normal in caliber. Mediastinum: Heart size is normal. No pericardial effusion. A previously described left hilar enlarged lymph node is no longer visualized. There are prevascular confluent shoddy lymph nodes which are grossly stable to slightly decreased in bulky appearance although exact measurements are difficult due to the irregular configuration Thoracic aorta and central pulmonary arteries are normal in size. Esophagus is normal in caliber. No hiatal hernia. Chest wall: No axillary or supraclavicular adenopathy by size criteria. Left supraclavicular lymph node image 9 series 2 is also decreased in size since the prior study measuring 17 x 11 mm, previously 22 x 16 mm. Thyroid gland grossly unremarkable although partially visualized. ABDOMEN: Solid organs: Mild hepatic steatosis otherwise the liver is normal in size and enhancement. Gallbladder unremarkable. Biliary system is non dilated. Pancreas enhances normally. Spleen is normal in size and enhancement. No adrenal nodules. Kidneys demonstrate normal size and enhancement, without hydronephrosis. Simple appearing left renal cyst Peritoneum and bowel: Bowel loops demonstrate normal wall thickness and caliber. No free fluid or air. The appendix is not clearly identified however no suspicious pericecal inflammatory changes are identified Nodes and vessels: No retroperitoneal or mesenteric adenopathy by size criteria. Aorta and inferior vena cava are normal in size. Miscellaneous: No ventral hernias. PELVIS: Genitourinary: Bladder wall thickness is normal. There are presumed multiple uterine fibroids. Heterogeneous left adnexal cystic and solid appearing focus is also unchanged. This measures 4.3 x 3.6 cm cross-sectional dimensions on image 104 series 2. Miscellaneous: No inguinal hernias or adenopathy. Bones: No suspicious bony lesions. No vertebral body compression fractures. IMPRESSION: Interval improvement in dominant left upper lobe nodule, as well as left hilar, supraclavicular and prevascular lymphadenopathy since the prior study dated 07/01/18 presumably treatment effect. Elsewhere, no progressive metastatic disease identified. Heterogeneous cystic and solid masslike focus in the left adnexa. Recommend continued ultrasound surveillance (versus laparoscopic evaluation) to exclude ovarian neoplasm as discussed in a recent prior pelvic ultrasound dated 08/31/18. Dictated by: Joey Rmaon M.D. on 10/04/2018 at 13:56 Approved by: Joey Ramon M.D. on 10/04/2018 at 14:09
== END ==
PROVIDERS: PCP Family Medicine; Visit Provider Internal Medicine Hematology & Oncology
DX: C34.90 Malignant neoplasm of unspecified part of unspecified bronchus or lung (principal)
CPT/HCPCS: 71260; 74177; Q9967

== ENCOUNTER 2018-10-26 09:20 | Emergency (ER) | payer MEDICARE, OTHER, SELFPAY ==
[2018-10-26] VITALS (7 sets, daily range): BP systolic 93–112; BP diastolic 51–73; PULSE 99–134; RESP 15–20; TEMP 36.7–36.9; O2SAT 94–100; BMI 21.9
--- NOTE | 2018-10-26 09:42 | ED.NAVMDI ---
HPI - Nausea/Vomiting/Diarrhea General Chief complaint: Nausea/Vomiting/Diarrhea Stated complaint: DIARRHEA,DEHYDRATION,VOMITING Time Seen by Provider: 10/26/18 09:38 Source: patient Mode of arrival: ambulatory Limitations: no limitations History of Present Illness HPI Narrative: Patient is a 63-year-old female presents with vomiting and diarrhea ongoing for the last 3 days. She has a history of a lung cancer with mets to the brain. She has not had chemotherapy for a month and a half. No longer on radiation. She has had some black tarry stools in the last couple of days and has thrown up numerous times. She has no abdominal pain except for when she is vomiting. She has had shaking and chills, but no documented fever. MD complaint: nausea, vomiting and diarrhea Related Data Home Medications Medication Instructions Recorded Confirmed calcium citrate-vitamin D3 1 tab PO QDAY #0 12/03/16 10/26/18 [Citracal Regular] ranitidine HCl 75 mg PO QDAY #0 12/10/17 10/26/18 docusate sodium [Colace] 100 mg PO QDAY #0 01/05/18 10/26/18 albuterol sulfate [Ventolin HFA] 2 puff INH Q4HP PRN 03/16/18 10/26/18 melatonin 3 mg PO BEDTIME PRN 04/26/18 10/26/18 ondansetron 8 mg PO TID PRN 08/02/18 10/26/18 Previous Rx's Medication Instructions Recorded cetirizine 10 mg PO QDAY #30 tab 01/27/17 bupropion HCl [Wellbutrin SR] 150 mg PO BID #180 tab 04/14/18 folic acid 1 mg PO DAILY #90 tab 07/29/18 mirtazapine 7.5 mg tablet 7.5 mg PO DAILY #30 tab 09/14/18 levetiracetam 500 mg tablet 500 mg PO BID #60 10/05/18 levothyroxine 75 mcg tablet 150 mcg PO DAILY 90 Days #180 tab 10/05/18 prednisone 2.5 mg tablet 2.5 mg PO DAILY #30 tab 10/11/18 metoclopramide 10 mg tablet 10 mg PO Q6H #30 tab 10/20/18 Allergies Allergy/AdvReac Type Severity Reaction Status Date / Time bacitracin Allergy Mild ITCHING Verified 10/26/18 09:38 [From NEOSPORIN ([id number])] neomycin Allergy Mild ITCHING Verified 10/26/18 09:38 [From NEOSPORIN ([id number])] polymyxin B Allergy Mild ITCHING Verified 10/26/18 09:38 [From NEOSPORIN ([id number])] diphenhydramine AdvReac Mild ELEVATED Verified 10/26/18 09:38 [DIPHENHYDRAMINE] HEART RATE erythromycin base AdvReac Mild Difficulty Verified 10/26/18 09:38 [ERYTHROMYCIN BASE] Breathing caffeine [From CAFERGOT] AdvReac Unknown ELEVATED Verified 10/26/18 09:38 HR, MIGRAINE ergotamine [From CAFERGOT] AdvReac Unknown ELEVATED Verified 10/26/18 09:38 HR, MIGRAINE Review of Systems Review of Systems All systems reviewed & are unremarkable except as noted in HPI and below Constitutional Denies chills, Denies fever(s), Denies lethargy and Denies weakness Eyes Denies change in vision, Denies eye discharge, Denies irritation and Denies loss of vision Cardiovascular Denies chest pain, Denies irregular heart rhythm, Denies lightheadedness, Denies palpitations, Denies dyspnea, Denies dyspnea on exertion and Denies orthopnea Respiratory Denies cough, Denies dyspnea, Denies dyspnea on exertion and Denies wheezing Gastrointestinal Gastrointestinal: Reports as per HPI, Reports abdominal pain, Reports dyspepsia, Reports diarrhea, Reports loose stools, Reports nausea and Reports vomiting Musculoskeletal Denies back pain, Denies muscle weakness, Denies numbness and Denies tingling Integumentary/Breasts Denies pruritus, Denies erythema, Denies rash and Denies wounds Neurologic Denies loss of vision, Denies numbness, Denies tingling and Denies weakness Endocrine Denies palpitations Allergic/Immunologic Denies wheezing [facility] Social History marital status: household members: friend(s) and caregiver Smoking Status: Former smoker alcohol intake: never substance use type: does not use Exam Initial Vital Signs Initial Vital Signs: Vital Signs Temperature 98.0 F 10/26/18 09:33 Pulse Rate 134 H 10/26/18 09:33 Respiratory Rate 15 10/26/18 09:33 Blood Pressure 101/73 10/26/18 09:33 Pulse Oximetry 100 10/26/18 09:33 Const General: cooperative, frail appearing and ill appearing (Chronically ill) Nutritional Appearance: malnourished Orientation: alert, awake and oriented x3 HENMT Head: normal to inspection and normocephalic Ears: hearing grossly normal bilaterally Eyes General: appearance normal, both eyes and all related structures Neck Neck: normal visual inspection and full ROM Chest Chest: normal inspection of the chest Resp Effort & Inspection: normal respiratory effort Auscultation: clear to auscultation bilaterally, no wheezes and no rubs Tactile Fremitus: tactile fremitus absent Cardio Rate: regular rate Rhythm: regular rhythm Heart Sounds: no click, no gallops, no murmurs and no rubs Pulses: normal peripheral pulses GI Inspection: normal to inspection Palpation: soft, No firm, No guarding and No tender Skin General: no rashes or lesions noted, No jaundice and No petechiae Neuro General: alert, awake, oriented x3 and CN's II-XI intact bilaterally Course Orders Ordered: ED Orders 10/26/18 10:00 Complete Blood Count AUTO DIFF Stat Comprehensive Metabolic Panel Stat Lactate (Lactic Acid) Stat Lipase Stat 10/26/18 10:30 Blood Culture Stat Discontinued Medications Acetaminophen (Tylenol) 975 mg PO NOW ONE Stop: 10/26/18 09:40 Last Admin: 10/26/18 10:05 Dose: 975 mg Dextrose (D50w) 25 gm IV NOW ONE Stop: 10/26/18 11:43 Last Admin: 10/26/18 11:44 Dose: 25 gm Sodium Chloride (Normal Saline 0.9%) 1,000 mls @ 2,000 mls/hr IV BOLUS ONE Stop: 10/26/18 10:08 Last Infusion: 10/26/18 11:12 Dose: 0 mls/hr Admin: 10/26/18 10:05 Dose: 2,000 mls/hr Ondansetron HCl (Zofran) 4 mg IV NOW ONE Stop: 10/26/18 09:40 Last Admin: 10/26/18 10:05 Dose: 4 mg Pantoprazole Sodium (Protonix) 40 mg IV NOW ONE Stop: 10/26/18 09:41 Last Admin: 10/26/18 10:05 Dose: 40 mg Vital Signs - 8 hr 10/26/18 09:33 10/26/18 10:26 10/26/18 10:33 Temperature 98.0 F 98.3 F Pulse Rate 134 H 109 H Respiratory Rate 15 17 Blood Pressure 101/73 Blood Pressure [Right Arm] Pulse Oximetry 100 97 10/26/18 11:28 10/26/18 12:04 10/26/18 13:00 Temperature Pulse Rate 100 H 104 H 99 H Respiratory Rate 15 17 20 Blood Pressure Blood Pressure [Right Arm] 112/61 102/52 L 93/51 L Pulse Oximetry 95 94 10/26/18 13:55 Temperature 98.5 F Pulse Rate 103 H Respiratory Rate 18 Blood Pressure 93/53 L Blood Pressure [Right Arm] Pulse Oximetry 96 MDM - Nausea/Vomiting/Diarrhea Medical Records Attestation: I reviewed the patient's medical records. Lab Data Attestation: I reviewed the patient's lab results. Result diagrams: 10/26/18 10:00 10/26/18 10:00 Lab Results 10/26/18 10/26/18 10/26/18 Range/Units 10:00 10:00 10:00 WBC 6.2 (4.5-11.0) X10^3/uL RBC 3.38 L (4.0-5.2) X10^6/uL Hgb 11.5 L (12.0-16.0) g/dL Hct 33.8 L (36-46) % MCV 100.2 H (80-100) fL MCH 34.2 H (26-34) PG MCHC 34.1 (30-36) % RDW 14.0 (11.6-14.8) % Plt Count 182 (150-400) X10^3/uL Neut % (Auto) 58.4 (50-75) % Lymph % (Auto) 28.8 (25-40) % [place] % (Auto) 11.5 (3-14) % Eos % (Auto) 0.5 L (2-4) % Baso % (Auto) 0.8 (0-2) % Neut # (Auto) 3600 (6714-3216) /uL Sodium 144 (137-145) mmol/L Potassium 3.2 L (3.4-5.1) mmol/L Chloride 103 (98-107) mmol/L Carbon Dioxide 19 L (22-32) mmol/L BUN 14 (7-17) mg/dL Creatinine 0.90 (0.52-1.04) mg/dL Estimated GFR > 60.0 (>60) mL/min BUN/Creatinine Ratio 15.6 (6-22) Glucose 44 L* (80-110) mg/dL Lactate 0.8 (0.7-2.1) mmol/L Calcium 9.8 (8.4-10.2) mg/dL Total Bilirubin 0.4 (0.2-1.3) mg/dL AST 20 (14-36) IU/L ALT 17 (9-52) IU/L Alkaline Phosphatase 51 (38-126) U/L Total Protein 6.3 (6.3-8.2) g/dL Albumin 3.9 (3.5-5.0) g/dL Globulin 2.4 (1.7-4.1) g/dL Albumin/Globulin Ratio 1.6 (1.0-2.8) Lipase 14 L (23-300) U/L Point of Care Testing Glucose POC 131 MDM Narrative Medical decision making narrative: Patient is awake and alert responsive. Still feeling slightly nauseated but no actual vomiting. Lab called with a critical glucose of 44. She is given or choose and crackers and cheese. Repeat glucose remained low. She was given 1 amp of D50. She continues to eat his blood sugar has remained stable. She according to caregiver and old records has a constant state of nausea. She has Reglan at home. She has not had any vomiting in the ED and has been able to eat and drink. She is not on any hypoglycemic medication I think that her hypoglycemia likely from decreased intake. I discussed with her of the need to stay hydrated and drink something like Gatorade. She does not like Gatorade says it is to use weak so I suggested that she water it down. He understands warning signs of when to return to the ED all questions have been addressed. She has a caregiver. Discharge Plan Departure Patient Disposition: Home Clinical Impression: Hypoglycemia, Vomiting Discharge Date/Time: 10/26/18 13:57 Interventions: ED Discharge Assessment Last Done: 10/26/18 13:55 Instructions: DI for Vomiting -- Adult Activity Restrictions/Additional Instructions: 1) You have been diagnosed with hypoglycemia, vomiting 2) What to do: Drink frequent but small amounts of fluids. I recommend Gatorade or a Gatorade-like product, as it has small amounts of sugar and salts that improve fluid retention. 3) Take medications as directed 4) Follow up with your primary care provider in 2-3 days 5) Return to ER if you should have any new or worsening symptoms such as, unable to hold down fluids despite use of anti-nausea medications and the small volume oral rehydration strategy. Prescriptions: No Action calcium citrate-vitamin D3 [Citracal Regular] 250 MG/200 IU tablet 1 tab PO QDAY Qty: 0 RF: 0 cetirizine 10 MG tablet 10 mg PO QDAY Qty: 30 RF: 3 ranitidine HCl 75 MG tablet 75 mg PO QDAY Qty: 0 RF: 0 docusate sodium [Colace] 100 MG capsule 100 mg PO QDAY Qty: 0 RF: 0 bupropion HCl [Wellbutrin SR] 150 mg tablet extended release 12 hr 150 mg PO BID Qty: 180 RF: 2 levetiracetam [Keppra] 500 mg tablet 500 mg PO BID Qty: 60 RF: 11 levothyroxine [Unithroid] 75 mcg tablet 150 mcg PO DAILY 90 Days Qty: 180 RF: 1 prednisone 2.5 mg tablet 2.5 mg PO DAILY Qty: 30 RF: 0 mirtazapine 7.5 mg tablet 7.5 mg PO DAILY Qty: 30 RF: 3 metoclopramide HCl [Reglan] 10 mg tablet 10 mg PO Q6H Qty: 30 RF: 0 albuterol sulfate [Ventolin HFA] 90 MCG/PUFF HFA aerosol inhaler 2 puff INH Q4HP PRN (Reason: Adequate Ventilation) RF: 0 melatonin 3 mg Tablet 3 mg PO BEDTIME PRN (Reason: Agitation) RF: 0 folic acid 1 mg Tablet 1 mg PO DAILY Qty: 90 RF: 1 ondansetron 8 mg Tablet,Disintegrating 8 mg PO TID PRN (Reason: Nausea) RF: 0 Referrals: Dank Leong MD [Primary Care Provider] -
[2018-10-26] MEDS: PANTOPRAZOLE 40 MG VIAL IV (10:05)
[2018-10-26] MEDS: ACETAMINOPHEN 325 MG TABLET 975 MG PO (10:05)
[2018-10-26] MEDS: ONDANSETRON 4 MG/2 ML INJ IV (10:05)
[2018-10-26] MEDS: SODIUM CHLORIDE 0.9% 1,000 ML 2000 ML IV (10:05)
[2018-10-26 10:15] LABS: Add Manual Diff / Slide Review NO; Basophils Percent Auto 0.8 % (0-2); Eosinophils Percent Auto 0.5 % (2-4); Hematocrit 33.8 % (36-46); Hemoglobin 11.5 g/dL (12.0-16.0); Lymphocytes Percent Auto 28.8 % (25-40); Mean Corpuscular HGB Conc 34.1 % (30-36); Mean Corpuscular Hemoglobin 34.2 PG (26-34); Mean Corpuscular Volume 100.2 fL (80-100); Monocytes Percent Auto 11.5 % (3-14); Neutrophils Absolute Auto 3600 /uL (3000-5900); Neutrophils Percent Auto 58.4 % (50-75); Platelet Count 182 X10^3/uL (150-400); Red Blood Cell Count 3.38 X10^6/uL (4.0-5.2); White Blood Cell Count 6.2 X10^3/uL (4.5-11.0)
[2018-10-26 10:26] LABS: Alanine Aminotransferase 17 IU/L (9-52); Albumin 3.9 g/dL (3.5-5.0); Albumin Globulin Ratio 1.6 (1.0-2.8); Alkaline Phosphatase 51 U/L (38-126); Aspartate Aminotransferase 20 IU/L (14-36); BUN Creatinine Ratio 15.6 (6-22); Bilirubin Total 0.4 mg/dL (0.2-1.3); Blood Urea Nitrogen 14 mg/dL (7-17); Calcium 9.8 mg/dL (8.4-10.2); Carbon Dioxide 19 mmol/L (22-32); Chloride 103 mmol/L (98-107); Estimated Glomerular Filt Rate > 60.0 mL/min (>60); Globulin 2.4 g/dL (1.7-4.1); HEMOLYSIS < 15 (0-50); Lipase 14 U/L (23-300); Potassium 3.2 mmol/L (3.4-5.1); Sodium 144 mmol/L (137-145); Total Protein 6.3 g/dL (6.3-8.2)
[2018-10-26 10:27] LABS: Lactate (Lactic Acid) 0.8 mmol/L (0.7-2.1)
[2018-10-26 10:38] LABS: Glucose 44 mg/dL (80-110)
[2018-10-26] MEDS: DEXTROSE 50 % IN WATER 25 GM/50 ML SYRINGE IV (11:44)
== END 2018-10-26 13:57 | disposition home or self-care (01) ==
PROVIDERS: Emergency Provider Emergency Medicine; Family Provider Family Medicine; PCP Family Medicine
DX: E16.2 Hypoglycemia, unspecified (principal); R11.10 Vomiting, unspecified
CPT/HCPCS: 36415; 36591; 80053; 82962; 83605; 83690; 85025; 87040; 96361; 96374; 96375; 99283; 99284; C9113; J2405

== ENCOUNTER → 2018-11-01 15:30 | Oncology outpatient (ONC) | payer MEDICARE, OTHER, SELFPAY ==
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
--- NOTE | 2018-10-25 14:33 | ONC.NAV ---
Description: Medical Records Request Activity: Called [facility] and requested pt's hospice notes to be faxed over. She had been an ONC pt, went to hospice, and is now returning to treatment.
[2018-10-28 16:03] VITALS: BP 96/65; PULSE 118; RESP 18; O2SAT 100
[2018-10-28 16:14] LABS: Alanine Aminotransferase 19 IU/L (9-52); Albumin 3.9 g/dL (3.5-5.0); Albumin Globulin Ratio 1.5 (1.0-2.8); Alkaline Phosphatase 55 U/L (38-126); Aspartate Aminotransferase 21 IU/L (14-36); BUN Creatinine Ratio 18.6 (6-22); Bilirubin Total 0.4 mg/dL (0.2-1.3); Blood Urea Nitrogen 13 mg/dL (7-17); Calcium 9.9 mg/dL (8.4-10.2); Carbon Dioxide 26 mmol/L (22-32); Chloride 101 mmol/L (98-107); Estimated Glomerular Filt Rate > 60.0 mL/min (>60); Globulin 2.6 g/dL (1.7-4.1); Glucose 93 mg/dL (80-110); Potassium 3.4 mmol/L (3.4-5.1); Sodium 142 mmol/L (137-145); Total Protein 6.5 g/dL (6.3-8.2)
--- NOTE | 2018-10-28 16:23 | ONC.PN ---
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 Now she is on palliative chemotherapy with carbo and pemetrexed, which has been on hold after only one cycle due to grade 3 fatigue. On 10/04/2018, restaging CT scan of the chest abdomen pelvis showed interval improvement and dominant left upper lobe nodule as well as left hilar supraclavicular and prevascular lymphadenopathy without progressive metastatic disease elsewhere. Once again it showed heterogeneous cystic and solid mass like focus in the left adnexa. About 3 days ago patient developed significant diarrhea. According to patient's daughter the day before yesterday she was having watery diarrhea at least 4 times a day. She was seen at the emergency room and underwent hydration. While at the emergency room patient was found to be hypoglycemic with a glucose level 44. Patient was given fluids as well as glucose. Patient is complaining of dizziness, and very poor appetite. Her blood pressure while in the clinic fluctuated quite a bit with high rapid heartbeat of close to 150. No fever. Oncological history [place] 10/2017, she presented with fall and poor balance. MRI 11/11/2017 showed metastasis in th eright parietal and parieto-occipital cortex. CT CAP showed left upper lobe pulomnary nodule, mediastinal adenopathy. She then underwent craniotomy with resection of intracranial metastasis at [facility] on 11/13/2017. Path: moderately differentiated pulmonary adenocarcinoma, with wild type EGFR, ALK, and ROS1, with PD-L1 > 50% TPS. She received Pembrolizumab for [address] 07/01/2018 showed disease progression[address] The CT showed the left upper lobe mass increased to 2.4 cm, progression of metastatic lymphadenopathy including left infra clavicular, superior mediastinal, precarinal, left hilar, and left axillary lymph nodes. MRI brain 07/28/2018 negative for metastasis. Palliative Carboplatin and pemetrexed started on 08/02/2018. Up until now patient has received only 1 cycle. - Patient Self-Reported Symptoms SR Constitution: Weight loss/gain SR Cardiovascular issues: Dizzy/lightheaded SR Gastrointestinal issues: Poor or no appetite, Change in bowel pattern, Diarrhea SR Musculoskeletal issues: Muscle weakness SR Neuro issues: Difficulty balancing - Additional ROS All systems PM: reviewed and no additional remarkable complaints except as stated Home Medications and Allergies Home Medications Medication Instructions Recorded Confirmed Type calcium citrate-vitamin D3 1 tab PO QDAY #0 12/03/16 10/26/18 History [Citracal Regular] cetirizine 10 mg PO QDAY #30 tab 01/27/17 10/26/18 Rx ranitidine HCl 75 mg PO QDAY #0 12/10/17 10/26/18 History docusate sodium [Colace] 100 mg PO QDAY #0 01/05/18 10/26/18 History albuterol sulfate [Ventolin HFA] 2 puff INH Q4HP PRN 03/16/18 10/26/18 History bupropion HCl [Wellbutrin SR] 150 mg PO BID #180 tab 04/14/18 10/26/18 Rx melatonin 3 mg PO BEDTIME PRN 04/26/18 10/26/18 History folic acid 1 mg PO DAILY #90 tab 07/29/18 10/26/18 Rx ondansetron 8 mg PO TID PRN 08/02/18 10/26/18 History mirtazapine 7.5 mg tablet 7.5 mg PO DAILY #30 tab 09/14/18 10/26/18 Rx levetiracetam 500 mg tablet 500 mg PO BID #60 10/05/18 10/26/18 Rx levothyroxine 75 mcg tablet 150 mcg PO DAILY 90 Days #180 tab 10/05/18 10/26/18 Rx prednisone 2.5 mg tablet 2.5 mg PO DAILY #30 tab 10/11/18 10/26/18 Rx metoclopramide 10 mg tablet 10 mg PO Q6H #30 tab 10/20/18 10/26/18 Rx metoclopramide HCl [Reglan] 10 mg PO Q6H 10/28/18 10/28/18 History prednisone [Deltasone] 60 mg PO DAILY #30 tab 10/28/18 Rx Allergies Allergy/AdvReac Type Severity Reaction Status Date / Time bacitracin Allergy Mild ITCHING Verified 10/26/18 09:38 [From NEOSPORIN ([id number])] neomycin Allergy Mild ITCHING Verified 10/26/18 09:38 [From NEOSPORIN ([id number])] polymyxin B Allergy Mild ITCHING Verified 10/26/18 09:38 [From NEOSPORIN ([id number])] diphenhydramine AdvReac Mild ELEVATED Verified 10/26/18 09:38 [DIPHENHYDRAMINE] HEART RATE erythromycin base AdvReac Mild Difficulty Verified 10/26/18 09:38 [ERYTHROMYCIN BASE] Breathing caffeine [From CAFERGOT] AdvReac Unknown ELEVATED Verified 10/26/18 09:38 HR, MIGRAINE ergotamine [From CAFERGOT] AdvReac Unknown ELEVATED Verified 10/26/18 09:38 HR, MIGRAINE Exam Vital signs: Last Vital Signs Pulse 118 H 10/28/18 16:03 Resp 18 10/28/18 16:03 BP 96/65 10/28/18 16:03 Pulse Ox 100 10/28/18 16:03 ECOG 1 Narrative: Constitutional: WDWN, NAD, thin, pleasant and cooperative. accompanied by her daughter Kimberlyn GOELENT: NCAT, EOMI, PERRLA, anicteric sclera, no hearing difficulty; Oral mucus membrane moist and without ulcers. Neck: Supple, symmetrical, and tracheal midline; No palpable thyromegaly and no palpable lymph nodes. Respiratory: Coarse breath sounds heard in both lungs. But no apparent wheezes or crackles. Cardiovascular: Regular rate and rhythm, S1 and S2 normal, no murmurs gallops or rubs. No JVD. No pitting edema of lower extremities. Abdomen: Soft, nontender, non-distended, bowel sounds normal, no palpable organomegaly, no hernia, no palpable masses. Lower extremities: No palpable pedal edema. Lymphatic: no palpable lymph nodes in the neck, axillae, or groins. Musculoskeletal: normal gait and station, no clubbing, no cyanosis, no pitting edema. Skin: no rashes, no ulcers, no petechiae Neurological: Awake and alert and oriented x3. CN II-XII grossly intact. No focal motor or sensory deficit. Psychiatric: Good judgment, good insight, normal affect, normal thought process, cooperative, no depression, no anxiety. Results - Labs Laboratory Last Values Sodium 142 mmol/L (137-145) 10/28/18 15:42 Potassium 3.4 mmol/L (3.4-5.1) 10/28/18 15:42 Chloride 101 mmol/L (98-107) 10/28/18 15:42 Carbon Dioxide 26 mmol/L (22-32) 10/28/18 15:42 BUN 13 mg/dL (7-17) 10/28/18 15:42 Creatinine 0.70 mg/dL (0.52-1.04) 10/28/18 15:42 Estimated GFR > 60.0 mL/min (>60) 10/28/18 15:42 BUN/Creatinine Ratio 18.6 (6-22) 10/28/18 15:42 Glucose 93 mg/dL (80-110) 10/28/18 15:42 Calcium 9.9 mg/dL (8.4-10.2) 10/28/18 15:42 Total Bilirubin 0.4 mg/dL (0.2-1.3) 10/28/18 15:42 AST 21 IU/L (14-36) 10/28/18 15:42 ALT 19 IU/L (9-52) 10/28/18 15:42 Alkaline Phosphatase 55 U/L (38-126) 10/28/18 15:42 Total Protein 6.5 g/dL (6.3-8.2) 10/28/18 15:42 Albumin 3.9 g/dL (3.5-5.0) 10/28/18 15:42 Globulin 2.6 g/dL (1.7-4.1) 10/28/18 15:42 Albumin/Globulin Ratio 1.5 (1.0-2.8) 10/28/18 15:42 Assessment and Plan (1) Lung cancer metastatic to brain Assessment and Plan: Recently, the CT scan after only 1 cycle of carbo/pemetrexed showed significant improvement of the pulmonary lesions. Unfortunately due to severe grade 3 fatigue, chemotherapy had to be on hold at this moment. During today's visit, patient further complained of worsening diarrhea and hypoglycemia (see below). Clinically, it is suspicious for possible immune related side effects from previous immunotherapy with Pembrolizumab. Therefore I will continue to hold the chemotherapy for now. When she makes progress, we may consider resuming chemotherapy with Pemetrexed only. (2) Acute diarrhea Assessment: I talked with the patient that the symptoms are somewhat worrisome. It could be due to other etiologies for example virus infection, or bacteria infection, etc. But patient has received immunotherapy with pembrolizumab in th past. We know that the immune-related colitis can happen any time even after the patient has completed the immunotherapy. In addition patient has a low hypoglycemic in the ER which raises the suspicion for possible immune-related hypoadrenalism. Given the above concern, I will start the patient on high-dose steroids and with hydration and monitor very closely. Plan: 1. NS 1000 cc iv over 1 hour 2. Pred 60 mg daily start today 3. Cont to hold chemotherapy 4. FT4, T3, TSH 5. RTC on 11/01/2018 for follow up (3) Abnormal TSH Assessment and plan: Patient has history of hypothyroidism and currently is taking levothyroxine 150 mg once a day.I talked with the patient that the dosage may not be correct given the persistently suppressed TSH level. I will repeat the thyroid function test and will adjust dosage thereafter.
--- NOTE | 2018-10-28 16:26 | P.PNONC_ITS ---
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 Now she is on palliative chemotherapy with carbo and pemetrexed, which has been on hold after only one cycle due to grade 3 fatigue. On 10/04/2018, restaging CT scan of the chest abdomen pelvis showed interval improvement and dominant left upper lobe nodule as well as left hilar supraclavicular and prevascular lymphadenopathy without progressive metastatic disease elsewhere. Once again it showed heterogeneous cystic and solid mass like focus in the left adnexa. About 3 days ago patient developed significant diarrhea. According to patient' s daughter the day before yesterday she was having watery diarrhea at least 4 times a day. She was seen at the emergency room and underwent hydration. While at the emergency room patient was found to be hypoglycemic with a glucose level 44. Patient was given fluids as well as glucose. Patient is complaining of dizziness, and very poor appetite. Her blood pressure while in the clinic fluctuated quite a bit with high rapid heartbeat of close to 150. No fever. Oncological history [place] 10/2017, she presented with fall and poor balance. MRI 11/11/2017 showed metastasis in th eright parietal and parieto-occipital cortex. CT CAP showed left upper lobe pulomnary nodule, mediastinal adenopathy. She then underwent craniotomy with resection of intracranial metastasis at [facility] on . Path: moderately differentiated pulmonary adenocarcinoma, with wild type EGFR, ALK, and ROS1, with PD-L1 > 50% TPS. She received Pembrolizumab for [address] 07/01/2018 showed disease progression. The CT showed the left upper lobe mass increased to 2.4 cm, progression of metastatic lymphadenopathy including left infra clavicular, superior mediastinal, precarinal, left hilar, and left axillary lymph nodes. MRI brain 07/28/2018 negative for metastasis. Palliative Carboplatin and pemetrexed started on 08/02/2018. Up until now patient has received only 1 cycle. - Patient Self-Reported Symptoms SR Constitution: Weight loss/gain SR Cardiovascular issues: Dizzy/lightheaded SR Gastrointestinal issues: Poor or no appetite, Change in bowel pattern, Diarrhea SR Musculoskeletal issues: Muscle weakness SR Neuro issues: Difficulty balancing - Additional ROS All systems PM: reviewed and no additional remarkable complaints except as stated Home Medications and Allergies Home Medications Medication Instructions Recorded Confirmed Type calcium citrate-vitamin D3 1 tab PO QDAY #0 12/03/16 10/26/18 History [Citracal Regular] cetirizine 10 mg PO QDAY #30 tab 01/27/17 10/26/18 Rx ranitidine HCl 75 mg PO QDAY #0 12/10/17 10/26/18 History docusate sodium [Colace] 100 mg PO QDAY #0 01/05/18 10/26/18 History albuterol sulfate [Ventolin HFA] 2 puff INH Q4HP PRN 03/16/18 10/26/18 History bupropion HCl [Wellbutrin SR] 150 mg PO BID #180 tab 04/14/18 10/26/18 Rx melatonin 3 mg PO BEDTIME PRN 04/26/18 10/26/18 History folic acid 1 mg PO DAILY #90 tab 07/29/18 10/26/18 Rx ondansetron 8 mg PO TID PRN 08/02/18 10/26/18 History mirtazapine 7.5 mg tablet 7.5 mg PO DAILY #30 tab 09/14/18 10/26/18 Rx levetiracetam 500 mg tablet 500 mg PO BID #60 10/05/18 10/26/18 Rx levothyroxine 75 mcg tablet 150 mcg PO DAILY 90 Days #180 tab 10/05/18 10/26/18 Rx prednisone 2.5 mg tablet 2.5 mg PO DAILY #30 tab 10/11/18 10/26/18 Rx metoclopramide 10 mg tablet 10 mg PO Q6H #30 tab 10/20/18 10/26/18 Rx metoclopramide HCl [Reglan] 10 mg PO Q6H 10/28/18 10/28/18 History prednisone [Deltasone] 60 mg PO DAILY #30 tab 10/28/18 Rx Allergies Allergy/AdvReac Type Severity Reaction Status Date / Time bacitracin Allergy Mild ITCHING Verified 10/26/18 09:38 [From NEOSPORIN ([id number])] neomycin Allergy Mild ITCHING Verified 10/26/18 09:38 [From NEOSPORIN ([id number])] polymyxin B Allergy Mild ITCHING Verified 10/26/18 09:38 [From NEOSPORIN ([id number])] diphenhydramine AdvReac Mild ELEVATED Verified 10/26/18 09:38 [DIPHENHYDRAMINE] HEART RATE erythromycin base AdvReac Mild Difficulty Verified 10/26/18 09:38 [ERYTHROMYCIN BASE] Breathing caffeine [From CAFERGOT] AdvReac Unknown ELEVATED Verified 10/26/18 09:38 HR, MIGRAINE ergotamine [From CAFERGOT] AdvReac Unknown ELEVATED Verified 10/26/18 09:38 HR, MIGRAINE Exam Vital signs: Last Vital Signs Pulse 118 H 10/28/18 16:03 Resp 18 10/28/18 16:03 BP 96/65 10/28/18 16:03 Pulse Ox 100 10/28/18 16:03 ECOG 1 Narrative: Constitutional: WDWN, NAD, thin, pleasant and cooperative. accompanied by her daughter Kimberlyn GOELENT: NCAT, EOMI, PERRLA, anicteric sclera, no hearing difficulty; Oral mucus membrane moist and without ulcers. Neck: Supple, symmetrical, and tracheal midline; No palpable thyromegaly and no palpable lymph nodes. Respiratory: Coarse breath sounds heard in both lungs. But no apparent wheezes or crackles. Cardiovascular: Regular rate and rhythm, S1 and S2 normal, no murmurs gallops or rubs. No JVD. No pitting edema of lower extremities. Abdomen: Soft, nontender, non-distended, bowel sounds normal, no palpable organomegaly, no hernia, no palpable masses. Lower extremities: No palpable pedal edema. Lymphatic: no palpable lymph nodes in the neck, axillae, or groins. Musculoskeletal: normal gait and station, no clubbing, no cyanosis, no pitting edema. Skin: no rashes, no ulcers, no petechiae Neurological: Awake and alert and oriented x3. CN II-XII grossly intact. No focal motor or sensory deficit. Psychiatric: Good judgment, good insight, normal affect, normal thought process , cooperative, no depression, no anxiety. Results - Labs Laboratory Last Values Sodium 142 mmol/L (137-145) 10/28/18 15:42 Potassium 3.4 mmol/L (3.4-5.1) 10/28/18 15:42 Chloride 101 mmol/L (98-107) 10/28/18 15:42 Carbon Dioxide 26 mmol/L (22-32) 10/28/18 15:42 BUN 13 mg/dL (7-17) 10/28/18 15:42 Creatinine 0.70 mg/dL (0.52-1.04) 10/28/18 15:42 Estimated GFR > 60.0 mL/min (>60) 10/28/18 15:42 BUN/Creatinine Ratio 18.6 (6-22) 10/28/18 15:42 Glucose 93 mg/dL (80-110) 10/28/18 15:42 Calcium 9.9 mg/dL (8.4-10.2) 10/28/18 15:42 Total Bilirubin 0.4 mg/dL (0.2-1.3) 10/28/18 15:42 AST 21 IU/L (14-36) 10/28/18 15:42 ALT 19 IU/L (9-52) 10/28/18 15:42 Alkaline Phosphatase 55 U/L (38-126) 10/28/18 15:42 Total Protein 6.5 g/dL (6.3-8.2) 10/28/18 15:42 Albumin 3.9 g/dL (3.5-5.0) 10/28/18 15:42 Globulin 2.6 g/dL (1.7-4.1) 10/28/18 15:42 Albumin/Globulin Ratio 1.5 (1.0-2.8) 10/28/18 15:42 Assessment and Plan (1) Lung cancer metastatic to brain Assessment and Plan: Recently, the CT scan after only 1 cycle of carbo/ pemetrexed showed significant improvement of the pulmonary lesions. Unfortunately due to severe grade 3 fatigue, chemotherapy had to be on hold at this moment. During today's visit, patient further complained of worsening diarrhea and hypoglycemia (see below). Clinically, it is suspicious for possible immune related side effects from previous immunotherapy with Pembrolizumab. Therefore I will continue to hold the chemotherapy for now. When she makes progress, we may consider resuming chemotherapy with Pemetrexed only. (2) Acute diarrhea Assessment: I talked with the patient that the symptoms are somewhat worrisome. It could be due to other etiologies for example virus infection, or bacteria infection, etc. But patient has received immunotherapy with pembrolizumab in th past. We know that the immune-related colitis can happen any time even after the patient has completed the immunotherapy. In addition patient has a low hypoglycemic in the ER which raises the suspicion for possible immune-related hypoadrenalism. Given the above concern, I will start the patient on high-dose steroids and with hydration and monitor very closely. Plan: 1. NS 1000 cc iv over 1 hour 2. Pred 60 mg daily start today 3. Cont to hold chemotherapy 4. FT4, T3, TSH 5. RTC on 11/01/2018 for follow up (3) Abnormal TSH Assessment and plan: Patient has history of hypothyroidism and currently is taking levothyroxine 150 mg once a day.I talked with the patient that the dosage may not be correct given the persistently suppressed TSH level. I will repeat the thyroid function test and will adjust dosage thereafter.
[2018-10-28 16:29] LABS: Add Manual Diff / Slide Review NO; Basophils Percent Auto 0.9 % (0-2); Eosinophils Percent Auto 0.4 % (2-4); Hematocrit 33.5 % (36-46); Hemoglobin 11.5 g/dL (12.0-16.0); Lymphocytes Percent Auto 26.3 % (25-40); Mean Corpuscular HGB Conc 34.4 % (30-36); Mean Corpuscular Hemoglobin 34.2 PG (26-34); Mean Corpuscular Volume 99.3 fL (80-100); Monocytes Percent Auto 8.6 % (3-14); Neutrophils Absolute Auto 2600 /uL (1500-7000); Neutrophils Percent Auto 63.8 % (50-75); Platelet Count 205 X10^3/uL (150-400); Red Blood Cell Count 3.38 X10^6/uL (4.0-5.2); Red Cell Distribution Width 14.4 % (11.6-14.8); White Blood Cell Count 4.2 X10^3/uL (4.5-11.0)
[2018-10-28] MEDS: SODIUM CHLORIDE 0.9% 1,000 ML 1000 ML IV (16:31)
[2018-10-28 16:32] LABS: HEMOLYSIS < 15 (0-50); Iron 42 ug/dL (37-170)
[2018-10-28 16:42] LABS: Percent Iron Saturation 24 % (15-50); Total Iron Binding Capacity 175 ug/dL (265-497); Transferrin 118 mg/dL (206-381)
[2018-10-28 16:51] LABS: HEMOLYSIS < 15 (0-50)
[2018-10-28 16:52] LABS: Free T4, Direct Thyroxine 2.15 ng/dL (0.78-2.19)
[2018-10-28 17:06] LABS: Thyroid Stimulating Hormone < 0.02 uIU/mL (0.47-4.68)
[2018-10-28 17:21] LABS: Folate > 20.0 ng/mL (2.76-20.0); Vitamin B12 984 pg/mL (239-931)
--- NOTE | 2018-10-28 18:10 | PC.NURSE ---
Patient completed IV fluid infusion at 1751. Tolerated well. Lf ac iv removed per Eboni ZAPATA. No documentation noted on start of the iv. This RN Dc'd iv site once infusion was complete. Pt tolerated removal of iv wall, tip intact. Daughter with patient and escorted her out of the hospital via wheelchair.
[2018-10-30 15:57] LABS: Triiodothyronine T3 Total 114 ng/dL (76-181)
--- NOTE | 2018-11-01 09:12 | ONC.APRN.PN ---
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 Now she is on palliative chemotherapy with carbo and pemetrexed, which has been on hold after only one cycle due to grade 3 fatigue. On 10/04/2018, restaging CT scan of the chest abdomen pelvis showed interval improvement and dominant left upper lobe nodule as well as left hilar supraclavicular and prevascular lymphadenopathy without progressive metastatic disease elsewhere. Once again it showed heterogeneous cystic and solid mass like focus in the left adnexa. Previous visit 10/30/[address] Flores pt reported About 3 days of significant diarrhea. According to patient's daughter the patient she was having watery diarrhea at least 4 times a day. She was evaluated at the emergency room and underwent hydration. While at the emergency room patient was found to be hypoglycemic with a glucose level 44. Patient was given fluids as well as glucose. Patient was also complaining of dizziness, and very poor appetite. Her blood pressure while in the clinic fluctuated quite a bit with high rapid heartbeat of close to 150. No fever. In review of Dr Art note plan is to follow closely and if improvement in symptoms, which may be related to immune therapy, and improvement in functional status will reconsider once again initiating palliative chemotherapy. He initiated prednisone 60 mg once daily. The patient presents today with her daughter Kimberlyn who is a registered nurse. The pt and her daughter report ongoing fatigue and poor appetite. However appetite might be a little better with prednisone. Pt eating small bites throughout the day. She contiues to lose weight, continues to report weakness. She spends most of her day in a WC. Her roommate prepares meals for her. She denies headache. She denies cough, fever, chills. She states her bowel movements have normalized she had a normal bowel movement yesterday October 31. No abdominal pain. Nausea has improved since initiating Reglan. Pt reports getting good sleep at night. The patient's daughter reports a fixed hallucination. Patient will frequently see a very tall advisory services associate on the street. The pt reports he is usually smoking and he has on high rubber boots. She will see this a few times each day. She states it is not frightening to her but she knows its not real because nobody is that tall. Oncological history IN 10/2017, she presented with fall and poor balance. MRI 11/11/2017 showed metastasis in th eright parietal and parieto-occipital cortex. CT CAP showed left upper lobe pulomnary nodule, mediastinal adenopathy. She then underwent craniotomy with resection of intracranial metastasis at [facility] on 11/13/2017. Path: moderately differentiated pulmonary adenocarcinoma, with wild type EGFR, ALK, and ROS1, with PD-L1 > 50% TPS. She received Pembrolizumab for [address] 07/01/2018 showed disease progression. The CT showed the left upper lobe mass increased to 2.4 cm, progression of metastatic lymphadenopathy including left infra clavicular, superior mediastinal, precarinal, left hilar, and left axillary lymph nodes. MRI brain 07/28/2018 negative for metastasis. Palliative Carboplatin and pemetrexed started on 08/02/2018. Up until now patient has received only 1 cycle. - Patient Self-Reported Symptoms SR Constitution: Weight loss/gain SR Cardiovascular issues: Dizzy/lightheaded SR Gastrointestinal issues: Poor or no appetite, Change in bowel pattern, Diarrhea SR Musculoskeletal issues: Muscle weakness SR Neuro issues: Difficulty balancing Home Medications and Allergies Home Medications Medication Instructions Recorded Confirmed Type calcium citrate-vitamin D3 1 tab PO QDAY #0 12/03/16 10/26/18 History [Citracal Regular] cetirizine 10 mg PO QDAY #30 tab 01/27/17 10/26/18 Rx ranitidine HCl 75 mg PO QDAY #0 12/10/17 10/26/18 History docusate sodium [Colace] 100 mg PO QDAY #0 01/05/18 10/26/18 History albuterol sulfate [Ventolin HFA] 2 puff INH Q4HP PRN 03/16/18 10/26/18 History bupropion HCl [Wellbutrin SR] 150 mg PO BID #180 tab 04/14/18 10/26/18 Rx melatonin 3 mg PO BEDTIME PRN 04/26/18 10/26/18 History folic acid 1 mg PO DAILY #90 tab 07/29/18 10/26/18 Rx ondansetron 8 mg PO TID PRN 08/02/18 10/26/18 History mirtazapine 7.5 mg tablet 7.5 mg PO DAILY #30 tab 09/14/18 10/26/18 Rx levetiracetam 500 mg tablet 500 mg PO BID #60 10/05/18 10/26/18 Rx prednisone 2.5 mg tablet 2.5 mg PO DAILY #30 tab 10/11/18 10/26/18 Rx metoclopramide 10 mg tablet 10 mg PO Q6H #30 tab 10/20/18 10/26/18 Rx metoclopramide HCl [Reglan] 10 mg PO Q6H 10/28/18 10/28/18 History levothyroxine [Synthroid] 100 mcg PO DAILY #60 tab 11/01/18 Rx prednisone [Deltasone] 20 mg PO DAILY #60 tab 11/01/18 Rx Allergies Allergy/AdvReac Type Severity Reaction Status Date / Time bacitracin Allergy Mild ITCHING Verified 10/26/18 09:38 [From NEOSPORIN ([id number])] neomycin Allergy Mild ITCHING Verified 10/26/18 09:38 [From NEOSPORIN ([id number])] polymyxin B Allergy Mild ITCHING Verified 10/26/18 09:38 [From NEOSPORIN ([id number])] diphenhydramine AdvReac Mild ELEVATED Verified 10/26/18 09:38 [DIPHENHYDRAMINE] HEART RATE erythromycin base AdvReac Mild Difficulty Verified 10/26/18 09:38 [ERYTHROMYCIN BASE] Breathing caffeine [From CAFERGOT] AdvReac Unknown ELEVATED Verified 10/26/18 09:38 HR, MIGRAINE ergotamine [From CAFERGOT] AdvReac Unknown ELEVATED Verified 10/26/18 09:38 HR, MIGRAINE Exam Narrative: frail, thin, in wheelchair - Constitutional positive no acute distress, positive chronically ill appearing - Routine HEENT Exam Head: Present: normocephalic, atraumatic Eye: Present: conjunctivae pink. Absent: conjunctival icterus, scleral injection, nystagmus ENT: Present: mucous membranes dry, oropharynx clear - Routine Neck Exam Present: supple. Absent: lymphadenopathy - Routine Respiratory Exam Present: Clear to auscultation bilaterally. Absent: rales, rhonchi, wheezes - Routine Cardiovascular Exam Present: RRR, S1, S2. Absent: murmur, gallop, rubs, JVD - Routine Abdominal Exam Present: soft, normoactive bowel sounds. Absent: tenderness, distended - Routine Extremities Exam Absent: edema, calf tenderness - Routine Skin Exam Present: intact, normal turgor. Absent: petechiae, rash - Routine Neurological Exam Present: alert, oriented X3 - Routine Psychiatric Exam Present: normal affect Results - Labs Laboratory Last Values WBC 4.2 X10^3/uL (4.5-11.0) L 10/28/18 15:42 RBC 3.38 X10^6/uL (4.0-5.2) L 10/28/18 15:42 Hgb 11.5 g/dL (12.0-16.0) L 10/28/18 15:42 Hct 33.5 % (36-46) L 10/28/18 15:42 MCV 99.3 fL (80-100) 10/28/18 15:42 MCH 34.2 PG (26-34) H 10/28/18 15:42 MCHC 34.4 % (30-36) 10/28/18 15:42 RDW 14.4 % (11.6-14.8) 10/28/18 15:42 Plt Count 205 X10^3/uL (150-400) 10/28/18 15:42 Neut % (Auto) 63.8 % (50-75) 10/28/18 15:42 Lymph % (Auto) 26.3 % (25-40) 10/28/18 15:42 Arthur % (Auto) 8.6 % (3-14) 10/28/18 15:42 Eos % (Auto) 0.4 % (2-4) L 10/28/18 15:42 Baso % (Auto) 0.9 % (0-2) 10/28/18 15:42 Neut # (Auto) 2600 /uL (5223-7449) 10/28/18 15:42 Sodium 142 mmol/L (137-145) 10/28/18 15:42 Potassium 3.4 mmol/L (3.4-5.1) 10/28/18 15:42 Chloride 101 mmol/L (98-107) 10/28/18 15:42 Carbon Dioxide 26 mmol/L (22-32) 10/28/18 15:42 BUN 13 mg/dL (7-17) 10/28/18 15:42 Creatinine 0.70 mg/dL (0.52-1.04) 10/28/18 15:42 Estimated GFR > 60.0 mL/min (>60) 10/28/18 15:42 BUN/Creatinine Ratio 18.6 (6-22) 10/28/18 15:42 Glucose 93 mg/dL (80-110) 10/28/18 15:42 Calcium 9.9 mg/dL (8.4-10.2) 10/28/18 15:42 Iron 42 ug/dL (37-170) 10/28/18 15:42 TIBC 175 ug/dL (265-497) L 10/28/18 15:42 % Saturation 24 % (15-50) 10/28/18 15:42 Transferrin 118 mg/dL (206-381) L 10/28/18 15:42 Ferritin 227.0 ng/mL (11.1-264) 10/28/18 15:42 Total Bilirubin 0.4 mg/dL (0.2-1.3) 10/28/18 15:42 AST 21 IU/L (14-36) 10/28/18 15:42 ALT 19 IU/L (9-52) 10/28/18 15:42 Alkaline Phosphatase 55 U/L (38-126) 10/28/18 15:42 Total Protein 6.5 g/dL (6.3-8.2) 10/28/18 15:42 Albumin 3.9 g/dL (3.5-5.0) 10/28/18 15:42 Globulin 2.6 g/dL (1.7-4.1) 10/28/18 15:42 Albumin/Globulin Ratio 1.5 (1.0-2.8) 10/28/18 15:42 Vitamin B12 984 pg/mL (239-931) H 10/28/18 15:42 Folate > 20.0 ng/mL (2.76-20.0) H 10/28/18 15:42 TSH < 0.02 uIU/mL (0.47-4.68) L 10/28/18 15:42 Free T4 2.15 ng/dL (0.78-2.19) 10/28/18 15:42 Total T3 114 ng/dL (76-181) 10/28/18 15:42 Assessment and Plan (1) Lung cancer metastatic to brain The patient is a 63-year-old female with 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 Now on palliative chemotherapy with carbo and pemetrexed which has been on hold after only 1 cycle due to grade 3 fatigue and weakness. Assessment and Plan: Recently, the CT scan after only 1 cycle of carbo/pemetrexed showed significant improvement of the pulmonary lesions. Unfortunately due to severe grade 3 fatigue and weakness with ongoing poor appetite chemotherapy remains on hold. I discussed in detail with the pt and her daughter options moving forward which include chemotherapy with single agent pemetrexed or hospice. It is very unlikely pt would note improved survival and/or QOL with ongoing chemotherapy. Her needs can be best met by focusing on symptom management and QOL with hospice. The pt's daughter agrees and in fact she states I think chemotherapy will kill my mom. Certainly with ongoing chemo, even single agent, I would expect continued decline of functional status. Patient's ECOG is 3. PPS 40-50. Plan: 1. Cont prednisone however will decrease dose to 40mg QD. 2. Decrease synthroid noting overly suppressed TSH at <.02, will repeat TSH in 4-6 weeks 3. RTC in 7-10 days at which time we will likely transfer care to hospice. We will check a cbc cmp magnesium noting hypoglycemia, hyponatremia and hypokalemia. We can provide the patient with some fine tuning prior to admission on hospice. (2) Acute diarrhea Assessment: I talked with the patient that the symptoms are somewhat worrisome. It could be due to other etiologies for example virus infection, or bacteria infection, etc. But patient has received immunotherapy with pembrolizumab in th past. We know that the immune-related colitis can happen any time even after the patient has completed the immunotherapy. In addition patient has a low hypoglycemic in the ER which raises the suspicion for possible immune-related hypoadrenalism. Given the above concern, I will start the patient on high-dose steroids and with hydration and monitor very closely. Plan: 1. NS 1000 cc iv over 1 hour 2. Pred 60 mg daily start today 3. Cont to hold chemotherapy 4. FT4, T3, TSH 5. RTC on 11/01/2018 for follow up (3) Abnormal TSH Assessment and plan: Patient has history of hypothyroidism and currently is taking levothyroxine 150 mg once a day.I talked with the patient that the dosage may not be correct given the persistently suppressed TSH level. I will repeat the thyroid function test and will adjust dosage thereafter.
[2018-11-01 16:02] VITALS: BP 99/63; PULSE 97; RESP 20; TEMP 36.8; O2SAT 98
--- NOTE | 2018-12-14 14:00 | ONC.NAV ---
Description: T/C re: status Activity: Called pt's daughter to inquire about pt's current medical status and plan of care. The plan had been for pt to return to this clinic last month for a f/u with MATTHEW Murcia, however this never occurred. Dtr states that pt has been in [facility] in [place] for the last month, had been fairly stable, however was admitted to [facility] yesterday for a reoccurrence of metabolic encephalopathy. Dtr states that they will know more in the coming days, and will f/u with an update for us at that time.
--- NOTE | 2018-12-27 12:44 | ONC.NAV ---
*Sent bereavement card.
== END ==
PROVIDERS: Family Provider Family Medicine; PCP Family Medicine; Visit Provider Internal Medicine Hematology & Oncology
DX: C34.12 Malignant neoplasm of upper lobe, left bronchus or lung (principal); C79.31 Secondary malignant neoplasm of brain; R53.83 Other fatigue; R53.1 Weakness; R19.7 Diarrhea, unspecified; E03.9 Hypothyroidism, unspecified
CPT/HCPCS: 36415; 71260; 74177; 80053; 82607; 82728; 82746; 83540; 83550; 84439; 84443; 84480; 85025; 96360; 96523; 99214; Q9967

== ENCOUNTER 2018-11-21 12:41 | Emergency (ER) | payer MEDICARE, OTHER, SELFPAY ==
[2018-11-21 12:46] VITALS: BP 150/86; PULSE 102; RESP 20; TEMP 36.7; O2SAT 100; BMI 24.5
--- NOTE | 2018-11-21 12:57 | ED.FALL ---
HPI - Fall General Chief Complaint: Syncope Stated Complaint: Facial hematoma Time Seen by Provider: 11/21/18 12:44 Source: patient, family and EMS Mode of arrival: EMS Limitations: no limitations History of Present Illness HPI Narrative: Patient was brought by EMS after losing her balance and falling while negotiating a dip in the sidewalk. Patient had her head and lost consciousness, family thinks during the act of hitting her head. Patient had otherwise been awake and seemed fine even as she was falling. Patient states she does not have any recollection of the fall or hitting her head. She states she remembers being on the walk and states she did not feel bad in any way, prior to the incident. Patient states that right now, she has pain and soreness where she hit her head, but otherwise, denies any pain or feeling bad in any other way. Patient states that about a year ago she had 2 brain tumors removed after being found to have metastatic lung cancer with brain lesions. She states following that, she was on chemotherapy, and has been told that the mass in her lung is also she drinking. Patient states that she ended chemotherapy about 2 months ago, and that she feels that she has been slowly recovering since. The patient is not on radiation. No other complaints at this time. Related Data Home Medications Medication Instructions Recorded Confirmed calcium citrate-vitamin D3 1 tab PO QDAY #0 12/03/16 10/26/18 [Citracal Regular] ranitidine HCl 75 mg PO QDAY #0 12/10/17 10/26/18 docusate sodium [Colace] 100 mg PO QDAY #0 01/05/18 10/26/18 albuterol sulfate [Ventolin HFA] 2 puff INH Q4HP PRN 03/16/18 10/26/18 melatonin 3 mg PO BEDTIME PRN 04/26/18 10/26/18 ondansetron 8 mg PO TID PRN 08/02/18 10/26/18 metoclopramide HCl [Reglan] 10 mg PO Q6H 10/28/18 10/28/18 Previous Rx's Medication Instructions Recorded cetirizine 10 mg PO QDAY #30 tab 01/27/17 bupropion HCl [Wellbutrin SR] 150 mg PO BID #180 tab 04/14/18 folic acid 1 mg PO DAILY #90 tab 07/29/18 mirtazapine 7.5 mg tablet 7.5 mg PO DAILY #30 tab 09/14/18 levetiracetam 500 mg tablet 500 mg PO BID #60 10/05/18 prednisone 2.5 mg tablet 2.5 mg PO DAILY #30 tab 10/11/18 metoclopramide 10 mg tablet 10 mg PO Q6H #30 tab 10/20/18 levothyroxine [Synthroid] 100 mcg PO DAILY #60 tab 11/01/18 prednisone [Deltasone] 20 mg PO DAILY #60 tab 11/01/18 Allergies Allergy/AdvReac Type Severity Reaction Status Date / Time bacitracin Allergy Mild ITCHING Verified 11/21/18 12:50 [From NEOSPORIN ([id number])] neomycin Allergy Mild ITCHING Verified 11/21/18 12:50 [From NEOSPORIN ([id number])] polymyxin B Allergy Mild ITCHING Verified 11/21/18 12:50 [From NEOSPORIN ([id number])] diphenhydramine AdvReac Mild ELEVATED Verified 11/21/18 12:50 [DIPHENHYDRAMINE] HEART RATE erythromycin base AdvReac Mild Difficulty Verified 11/21/18 12:50 [ERYTHROMYCIN BASE] Breathing caffeine [From CAFERGOT] AdvReac Unknown ELEVATED Verified 11/21/18 12:50 HR, MIGRAINE ergotamine [From CAFERGOT] AdvReac Unknown ELEVATED Verified 11/21/18 12:50 HR, MIGRAINE Review of Systems Review of Systems All systems reviewed & are unremarkable except as noted in HPI and below Constitutional Denies chills, Denies fever(s), Denies lethargy and Denies weakness Eyes Denies change in vision, Denies eye discharge, Denies irritation and Denies loss of vision ENT Ears, Nose, Mouth, and Throat: Denies change in voice, Denies neck pain and Denies sore throat Comments: Head injury, LOC Cardiovascular Denies chest pain, Denies irregular heart rhythm, Denies lightheadedness, Denies palpitations, Denies dyspnea, Denies dyspnea on exertion and Denies orthopnea Respiratory Denies cough, Denies dyspnea, Denies dyspnea on exertion and Denies wheezing Gastrointestinal Gastrointestinal: Denies abdominal pain, Denies change in bowel habits, Denies diarrhea, Denies nausea and Denies vomiting Genitourinary Denies hematuria, Denies flank pain, Denies urinary incontinence and Denies urinary urgency Musculoskeletal Denies neck pain Integumentary/Breasts Denies pruritus, Denies erythema, Denies rash and Denies wounds Neurologic Denies confusion, Denies loss of vision and Denies weakness Psychiatric Denies anxiety, Denies confusion, Denies depression, Denies homicidal ideation and Denies suicidal ideation Endocrine Denies palpitations Hematologic/Lymphatic Denies easy bruising Allergic/Immunologic Denies wheezing Exam Initial Vital Signs Initial Vital Signs: Vital Signs Temperature 98.0 F 11/21/18 12:46 Pulse Rate 102 H 11/21/18 12:46 Respiratory Rate 20 11/21/18 12:46 Blood Pressure 150/86 H 11/21/18 12:46 Pulse Oximetry 100 11/21/18 12:46 Const General: cooperative and well developed Nutritional Appearance: well nourished Orientation: alert, awake, oriented x3 and not confused [facility] Head: normocephalic, No atraumatic (Patient has a 5 cm diameter hematoma over her left buddhist and lateral orbital rim. Extraocular muscles are intact. There is no evidence of globe injury. No bony step-off or deformity.), No Alegria's sign, hematoma (As above; no tenderness of the facial bones. No other evidence of facial trauma.) and No scalp lesion Ears: external ears normal Nose: external nose normal and No nasal discharge Face and sinus: face symmetric and No dry mucous membranes Mouth: oral mucosae normal and moist mucous membranes Teeth and gingiva: dentition normal Eyes General: appearance normal, both eyes and all related structures Eyelids: eyelids normal Conjunctivae: conjunctivae normal Sclera: sclerae normal Pupils: PERRL EOM: EOM intact bilaterally Neck Neck: normal visual inspection, trachea midline, No lymphadenopathy, No midline deformity and No JVD Lymphatic: No lymphedema Chest Chest: normal inspection of the chest Other: No rib tenderness or step-off. Resp Effort & Inspection: normal respiratory effort, able to speak in complete sentences, no respiratory distress and no use of accessory muscles Auscultation: clear to auscultation bilaterally, no rales, no rhonchi and no wheezes Cardio Rate: regular rate Rhythm: regular rhythm Heart Sounds: no click, no gallops, no murmurs and no rubs Pulses: normal peripheral pulses GI Inspection: non-distended Palpation: soft, no hepatosplenomegaly, No guarding, No pulsatile mass and No tender Auscultation: normal bowel sounds Back/Spine/Pelvis Back: No CVA tenderness Thoracic/Lumbar Spine: thoracic and lumbar spine normal to inspection Other: No tenderness or step-off any level of the patient's spine. Range of motion of the cervical spine not tested, due to C-spine precautions. No tenderness with AP or medial lateral compression of the patient's pelvic bone. 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) Secondary malignant neoplasm of brain (Chronic) Hyperlipidemia (Chronic) Chronic major depressive disorder (Chronic) Current smoker (Chronic 06/15/14) Essential hypertension (Chronic 01/28/17) 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) Weakness of left lower extremity (Chronic 11/25/17) Non-small cell carcinoma of lung (Chronic 02/11/18) Anxiety (Acute) Chronic back pain (Acute) Depression (Acute) Dyspnea (Acute) History of anemia (Acute) History of headache (Acute) Hypertension (Acute) Hypothyroidism (Acute) Peripheral vision loss (Acute) Port-a-cath in place (Acute) Postmenopausal (Acute) Recurrent sinusitis (Acute) Thrombus (Acute) Worsening headaches (Acute) Hyperlipidemia (Chronic) Chicken pox (Resolved) Measles (Resolved) Surgical History History of brain surgery (Acute) Status post tubal ligation Family History Brother Age: 63 Heart disease Diabetes mellitus Father Age: 91 Hypertension Hyperlipidemia Obese Diabetes mellitus Sister Age: 59 Leukemia Hong's thyroiditis Diabetes mellitus Social History marital status: household members: friend(s) and caregiver Smoking Status: Former smoker alcohol intake: never substance use type: does not use Course Course Narrative: Patient was worked up with had labs and CT scans of the head and neck, as well as a 12 lead EKG. She was given a 1 L bolus of 0.9 normal saline while in the emergency department. Her symptoms sounded most consistent, in light of the history, with a concussion with LOC, as opposed to a syncopal episode causing the fall. Patient was found on CT scan to have a small right frontal subarachnoid hemorrhage. I spoke with Neurosurgery at [place], where patient had had her craniotomy, and neurosurgeon felt patient should be transferred and observed in the Neuro ICU. I spoke with Dr. Lundberg, the neuro motel food service supervisor, who did accept the patient in transfer for admission to the ICU. Patient was advised that she would need transfer, and was also advised of her CT findings. Patient remained neurologically intact throughout her stay in the emergency department. Patient was transferred to the neuro ICU at [place] [facility] in critical condition. Orders Ordered: ED Orders 11/21/18 12:58 CT cervical spine wo con Stat CT head/brain wo con Stat 11/21/18 13:25 Complete Blood Count AUTO DIFF Stat Comprehensive Metabolic Panel Stat 11/21/18 15:03 Urine Culture Stat Urine Microscopic Stat Discontinued Medications Sodium Chloride (Normal Saline 0.9%) 1,000 mls @ 1,000 mls/hr IV BOLUS ONE Stop: 11/21/18 13:57 Last Infusion: 11/21/18 16:23 Dose: 0 mls/hr Admin: 11/21/18 13:42 Dose: 1,000 mls/hr Vital Signs - 8 hr 11/21/18 14:00 11/21/18 14:30 11/21/18 15:56 Pulse Rate 93 H 90 96 H Respiratory Rate 13 13 12 Blood Pressure [Left Arm] 144/70 H 136/74 133/73 Pulse Oximetry 99 97 100 MDM - Fall Medical Records Attestation: I reviewed the patient's medical records. Lab Data Attestation: I reviewed the patient's lab results. Result diagrams: 11/21/18 13:25 11/21/18 13:25 Lab Results 11/21/18 11/21/18 11/21/18 Range/Units 13:25 13:25 15:03 WBC 7.3 (4.5-11.0) X10^3/uL RBC 3.43 L (4.0-5.2) X10^6/uL Hgb 11.6 L (12.0-16.0) g/dL Hct 35.6 L (36-46) % MCV 103.8 H (80-100) fL MCH 33.9 (26-34) PG MCHC 32.7 (30-36) % RDW 15.0 H (11.6-14.8) % Plt Count 304 (150-400) X10^3/uL Neut % (Auto) 80.9 H (50-75) % Lymph % (Auto) 15.5 L (25-40) % [place] % (Auto) 2.5 L (3-14) % Eos % (Auto) 0.1 L (2-4) % Baso % (Auto) 1.0 (0-2) % Neut # (Auto) 5900 (9859-3954) /uL Sodium 138 (137-145) mmol/L Potassium 5.1 (3.4-5.1) mmol/L Chloride 101 (98-107) mmol/L Carbon Dioxide 30 (22-32) mmol/L BUN 19 H (7-17) mg/dL Creatinine 0.90 (0.52-1.04) mg/dL Estimated GFR > 60.0 (>60) mL/min BUN/Creatinine Ratio 21.1 (6-22) Glucose 105 (80-110) mg/dL Calcium 10.2 (8.4-10.2) mg/dL Total Bilirubin 0.3 (0.2-1.3) mg/dL AST 28 (14-36) IU/L ALT 25 (9-52) IU/L Alkaline Phosphatase 47 (38-126) U/L Total Protein 6.8 (6.3-8.2) g/dL Albumin 4.0 (3.5-5.0) g/dL Globulin 2.8 (1.7-4.1) g/dL Albumin/Globulin Ratio 1.4 (1.0-2.8) Urine RBC None seen (0-5/HPF) Urine WBC 1-5/hpf (0-5/HPF) Ur Squamous Epith Cells 1-5 /hpf Urine Bacteria Few (2-10) H (None) Ur Culture Indicated? Specimen cultured Micro UA Comment Not Reportable Urine Dip Bedside Urine Glucose Negative Bedside Urine Bilirubin - Negative Bedside Urine Ketone - Negative Urine Specific [place] 1.015 Bedside Urine Occult Blood - Negative Bedside Urine pH 8.0 Bedside Urine Protein - Negative Bedside Urine Urobilinogen - Negative Bedside Urine Nitrite - Negative Bedside Urine Leukocytes +/- [address] scan - head: Attestation: I personally reviewed and interpreted this imaging study as follows: My impression: Right frontal subarachnoid hemorrhage Radiologist's impression: PROCEDURE: CT HEAD/BRAIN WO CON INDICATIONS: head injury with LOC TECHNIQUE: Noncontrast 4.5 mm thick angled axial sections acquired from the foramen magnum to the vertex, with coronal and sagittal reformats. For radiation dose reduction, the following was used: automated exposure control, adjustment of mA and/or kV according to patient size. COMPARISON: [facility], CT, CT HEAD/BRAIN WO CON, 09/25/2018, 13:09. FINDINGS: Image quality: Excellent. CSF spaces: Basal cisterns are patent. No extra-axial fluid collections. The ventricles are unchanged in size and shape. There is mild generalized cerebral volume loss, with resultant ventricular and sulcal prominence. Brain: There is a small amount of subarachnoid hemorrhage along the right frontal lobe medially. Postsurgical changes are redemonstrated in the posterior right frontal and parietal lobes status post prior resection. There are subcortical, periventricular and deep white matter hypodensities consistent with mild chronic small vessel ischemic changes. There is intracranial internal carotid artery atherosclerosis. Skull and face: There is left periorbital and left frontal scalp soft tissue swelling with a subcutaneous or subgaleal scalp hematoma. Calvarium and visualized facial bones demonstrate no acute fractures. There are post craniotomy changes in the posterior frontal and parietal bones redemonstrated. Sinuses: Visualized sinuses and mastoids are clear. IMPRESSION: 1. Small amount of right frontal subarachnoid hemorrhage. 2. Left frontal and periorbital soft tissue swelling with a subcutaneous or subgaleal scalp hematoma without associated acute fractures. 3. Post surgical changes redemonstrated in the posterior right frontal and parietal lobes. Findings discussed with Dr. Ford on 11/21/18 at 1:32 PM. Dictated by: Ludin Robertson M.D. on 11/21/2018 at 13:30 Approved by: Ludin Robertson M.D. on 11/21/2018 at 13:36 CT C-spine: Attestation: I personally reviewed and interpreted this imaging study as follows: My impression: No acute disease Radiologist's impression: PROCEDURE: CT CERVICAL SPINE WO CON INDICATIONS: fall/head/neck injury TECHNIQUE: Noncontrast 3 mm thick sections acquired from the skull base to the T4 level. Sagittal and coronal reformats were then constructed. For radiation dose reduction, the following was used: automated exposure control, adjustment of mA and/or kV according to patient size. COMPARISON: [facility], CT, CT CHEST ABD PEL W CON, 07/01/2018, 7:49. [facility], CT, CT CHEST ABD PEL W CON, 10/04/2018, 11:12. FINDINGS: Image quality: Excellent. Bones: No fractures or dislocations. There is straightening of the cervical lordosis with minimal listhesis at C5-C6. There is mild disc space narrowing at C5-C6 with mild uncovertebral joint arthropathy and mild facet arthropathy. Visualized superior ribs are intact. Soft tissues: Prevertebral soft tissues are normal in thickness. No paravertebral hematomas. No apical pneumothoraces. The visualized lungs redemonstrate an irregular nodule in the left upper lobe measuring up to approximately 1.2 cm which is incompletely included on the current study but appears similar to the 10/04/18 study. There are enlarged prevascular lymph nodes in the visualized mediastinum measuring up to approximately 2 cm in short axis, similar in size to the prior study. Scattered small subcentimeter left supraclavicular lymph nodes are also redemonstrated. IMPRESSION: 1. No fracture or subluxation. 2. Minimal retrolisthesis at C5-C6 likely related to degenerative changes. 3. Partially visualized left upper lobe nodule and mediastinal lymphadenopathy consistent with patient's history of lung cancer appear similar to the prior study of 10/04/18. Dictated by: Ludin Robertson M.D. on 11/21/2018 at 13:37 Approved by: Ludin Robertson M.D. on 11/21/2018 at 13:42 ECG Data Attestation: I personally reviewed and interpreted this ECG as follows: (See below) Interpretation: Twelve lead EKG performed November 21, 2018 at 12:54 p.m., as follows: Regular ventricular rhythm with a rate of 96 beats per minute OR interval 149 milliseconds QRS duration 101 millisecond QTC interval 420 millisecond No ectopy No ST or T-wave changes In summary, normal sinus rhythm, no STEMI; normal EKG as interpreted by ED MD. Critical Care Time Critical Care Time: Yes Total Critical Care Time: 30 Attestation: Critical care was necessary to provide treatment and prevent imminent and potentially life-threatening decline from the following condition: Intracranial hemorrhage. Critical care time includes interviewing and examining the patient, interviewing family members, interviewing EMS personnel, evaluating cardiac output measures, re-evaluating the patient, ordering and reviewing laboratory studies, ordering and reviewing diagnostic imaging studies, ordering and reviewing electrocardiogram and secured entrance monitor interpretation, speaking with consultants, arranging for transfer, discussing the results with the patient and family, documentation, and arranging for transfer to a higher level of care. Discharge Plan Departure Patient Disposition: [facility] Clinical Impression: Subarachnoid hemorrhage following injury with brief loss of consciousness but without open intracranial wound Discharge Date/Time: 11/21/18 16:25 Interventions: ED Discharge Assessment Last Done: 11/21/18 16:24 Prescriptions: No Action calcium citrate-vitamin D3 [Citracal Regular] 250 MG/200 IU tablet 1 tab PO QDAY Qty: 0 RF: 0 cetirizine 10 MG tablet 10 mg PO QDAY Qty: 30 RF: 3 ranitidine HCl 75 MG tablet 75 mg PO QDAY Qty: 0 RF: 0 docusate sodium [Colace] 100 MG capsule 100 mg PO QDAY Qty: 0 RF: 0 bupropion HCl [Wellbutrin SR] 150 mg tablet extended release 12 hr 150 mg PO BID Qty: 180 RF: 2 levetiracetam [Keppra] 500 mg tablet 500 mg PO BID Qty: 60 RF: 11 prednisone 2.5 mg tablet 2.5 mg PO DAILY Qty: 30 RF: 0 mirtazapine 7.5 mg tablet 7.5 mg PO DAILY Qty: 30 RF: 3 metoclopramide HCl [Reglan] 10 mg tablet 10 mg PO Q6H Qty: 30 RF: 0 albuterol sulfate [Ventolin HFA] 90 MCG/PUFF HFA aerosol inhaler 2 puff INH Q4HP PRN (Reason: Adequate Ventilation) RF: 0 melatonin 3 mg Tablet 3 mg PO BEDTIME PRN (Reason: Agitation) RF: 0 folic acid 1 mg Tablet 1 mg PO DAILY Qty: 90 RF: 1 ondansetron 8 mg Tablet,Disintegrating 8 mg PO TID PRN (Reason: Nausea) RF: 0 metoclopramide HCl [Reglan] 10 mg Tablet 10 mg PO Q6H RF: 0 levothyroxine [Synthroid] 50 mcg Tablet 100 mcg PO DAILY Qty: 60 RF: 0 prednisone [Deltasone] 20 mg Tablet 20 mg PO DAILY Qty: 60 RF: 1 Referrals: Dank Leong MD [Primary Care Provider] -
--- NOTE | 2018-11-21 13:01 | ED_ITS ---
HPI - Fall General Chief Complaint: Syncope Stated Complaint: Facial hematoma Time Seen by Provider: 11/21/18 12:44 Source: patient, family and EMS Mode of arrival: EMS Limitations: no limitations History of Present Illness HPI Narrative: Patient was brought by EMS after losing her balance and falling while negotiating a dip in the sidewalk. Patient had her head and lost consciousness, family thinks during the act of hitting her head. Patient had otherwise been awake and seemed fine even as she was falling. Patient states she does not have any recollection of the fall or hitting her head. She states she remembers being on the walk and states she did not feel bad in any way, prior to the incident. Patient states that right now, she has pain and soreness where she hit her head, but otherwise, denies any pain or feeling bad in any other way. Patient states that about a year ago she had 2 brain tumors removed after being found to have metastatic lung cancer with brain lesions. She states following that, she was on chemotherapy, and has been told that the mass in her lung is also she drinking. Patient states that she ended chemotherapy about 2 months ago, and that she feels that she has been slowly recovering since. The patient is not on radiation. No other complaints at this time. Related Data Home Medications Medication Instructions Recorded Confirmed calcium citrate-vitamin D3 1 tab PO QDAY #0 12/03/16 10/26/18 [Citracal Regular] ranitidine HCl 75 mg PO QDAY #0 12/10/17 10/26/18 docusate sodium [Colace] 100 mg PO QDAY #0 01/05/18 10/26/18 albuterol sulfate [Ventolin HFA] 2 puff INH Q4HP PRN 03/16/18 10/26/18 melatonin 3 mg PO BEDTIME PRN 04/26/18 10/26/18 ondansetron 8 mg PO TID PRN 08/02/18 10/26/18 metoclopramide HCl [Reglan] 10 mg PO Q6H 10/28/18 10/28/18 Previous Rx's Medication Instructions Recorded cetirizine 10 mg PO QDAY #30 tab 01/27/17 bupropion HCl [Wellbutrin SR] 150 mg PO BID #180 tab 04/14/18 folic acid 1 mg PO DAILY #90 tab 07/29/18 mirtazapine 7.5 mg tablet 7.5 mg PO DAILY #30 tab 09/14/18 levetiracetam 500 mg tablet 500 mg PO BID #60 10/05/18 prednisone 2.5 mg tablet 2.5 mg PO DAILY #30 tab 10/11/18 metoclopramide 10 mg tablet 10 mg PO Q6H #30 tab 10/20/18 levothyroxine [Synthroid] 100 mcg PO DAILY #60 tab 11/01/18 prednisone [Deltasone] 20 mg PO DAILY #60 tab 11/01/18 Allergies Allergy/AdvReac Type Severity Reaction Status Date / Time bacitracin Allergy Mild ITCHING Verified 11/21/18 12:50 [From NEOSPORIN ([id number])] neomycin Allergy Mild ITCHING Verified 11/21/18 12:50 [From NEOSPORIN ([id number])] polymyxin B Allergy Mild ITCHING Verified 11/21/18 12:50 [From NEOSPORIN ([id number])] diphenhydramine AdvReac Mild ELEVATED Verified 11/21/18 12:50 [DIPHENHYDRAMINE] HEART RATE erythromycin base AdvReac Mild Difficulty Verified 11/21/18 12:50 [ERYTHROMYCIN BASE] Breathing caffeine [From CAFERGOT] AdvReac Unknown ELEVATED Verified 11/21/18 12:50 HR, MIGRAINE ergotamine [From CAFERGOT] AdvReac Unknown ELEVATED Verified 11/21/18 12:50 HR, MIGRAINE Review of Systems Review of Systems All systems reviewed & are unremarkable except as noted in HPI and below Constitutional Denies chills, Denies fever(s), Denies lethargy and Denies weakness Eyes Denies change in vision, Denies eye discharge, Denies irritation and Denies loss of vision ENT Ears, Nose, Mouth, and Throat: Denies change in voice, Denies neck pain and Denies sore throat Comments: Head injury, LOC Cardiovascular Denies chest pain, Denies irregular heart rhythm, Denies lightheadedness, Denies palpitations, Denies dyspnea, Denies dyspnea on exertion and Denies orthopnea Respiratory Denies cough, Denies dyspnea, Denies dyspnea on exertion and Denies wheezing Gastrointestinal Gastrointestinal: Denies abdominal pain, Denies change in bowel habits, Denies diarrhea, Denies nausea and Denies vomiting Genitourinary Denies hematuria, Denies flank pain, Denies urinary incontinence and Denies urinary urgency Musculoskeletal Denies neck pain Integumentary/Breasts Denies pruritus, Denies erythema, Denies rash and Denies wounds Neurologic Denies confusion, Denies loss of vision and Denies weakness Psychiatric Denies anxiety, Denies confusion, Denies depression, Denies homicidal ideation and Denies suicidal ideation Endocrine Denies palpitations Hematologic/Lymphatic Denies easy bruising Allergic/Immunologic Denies wheezing Exam Initial Vital Signs Initial Vital Signs: Vital Signs Temperature 98.0 F 11/21/18 12:46 Pulse Rate 102 H 11/21/18 12:46 Respiratory Rate 20 11/21/18 12:46 Blood Pressure 150/86 H 11/21/18 12:46 Pulse Oximetry 100 11/21/18 12:46 Const General: cooperative and well developed Nutritional Appearance: well nourished Orientation: alert, awake, oriented x3 and not confused [facility] Head: normocephalic, No atraumatic (Patient has a 5 cm diameter hematoma over her left muslim and lateral orbital rim. Extraocular muscles are intact. There is no evidence of globe injury. No bony step-off or deformity.), No Alegria 's sign, hematoma (As above; no tenderness of the facial bones. No other evidence of facial trauma.) and No scalp lesion Ears: external ears normal Nose: external nose normal and No nasal discharge Face and sinus: face symmetric and No dry mucous membranes Mouth: oral mucosae normal and moist mucous membranes Teeth and gingiva: dentition normal Eyes General: appearance normal, both eyes and all related structures Eyelids: eyelids normal Conjunctivae: conjunctivae normal Sclera: sclerae normal Pupils: PERRL EOM: EOM intact bilaterally Neck Neck: normal visual inspection, trachea midline, No lymphadenopathy, No midline deformity and No JVD Lymphatic: No lymphedema Chest Chest: normal inspection of the chest Other: No rib tenderness or step-off. Resp Effort & Inspection: normal respiratory effort, able to speak in complete sentences, no respiratory distress and no use of accessory muscles Auscultation: clear to auscultation bilaterally, no rales, no rhonchi and no wheezes Cardio Rate: regular rate Rhythm: regular rhythm Heart Sounds: no click, no gallops, no murmurs and no rubs Pulses: normal peripheral pulses GI Inspection: non-distended Palpation: soft, no hepatosplenomegaly, No guarding, No pulsatile mass and No tender Auscultation: normal bowel sounds Back/Spine/Pelvis Back: No CVA tenderness Thoracic/Lumbar Spine: thoracic and lumbar spine normal to inspection Other: No tenderness or step-off any level of the patient's spine. Range of motion of the cervical spine not tested, due to C-spine precautions. No tenderness with AP or medial lateral compression of the patient's pelvic bone. 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) Secondary malignant neoplasm of brain (Chronic) Hyperlipidemia (Chronic) Chronic major depressive disorder (Chronic) Current smoker (Chronic 06/15/14) Essential hypertension (Chronic 01/28/17) 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) Weakness of left lower extremity (Chronic 11/25/17) Non-small cell carcinoma of lung (Chronic 02/11/18) Anxiety (Acute) Chronic back pain (Acute) Depression (Acute) Dyspnea (Acute) History of anemia (Acute) History of headache (Acute) Hypertension (Acute) Hypothyroidism (Acute) Peripheral vision loss (Acute) Port-a-cath in place (Acute) Postmenopausal (Acute) Recurrent sinusitis (Acute) Thrombus (Acute) Worsening headaches (Acute) Hyperlipidemia (Chronic) Chicken pox (Resolved) Measles (Resolved) Surgical History History of brain surgery (Acute) Status post tubal ligation Family History Brother Age: 63 Heart disease Diabetes mellitus Father Age: 91 Hypertension Hyperlipidemia Obese Diabetes mellitus Sister Age: 59 Leukemia Hong's thyroiditis Diabetes mellitus Social History marital status: household members: friend(s) and caregiver Smoking Status: Former smoker alcohol intake: never substance use type: does not use Course Course Narrative: Patient was worked up with had labs and CT scans of the head and neck, as well as a 12 lead EKG. She was given a 1 L bolus of 0.9 normal saline while in the emergency department. Her symptoms sounded most consistent , in light of the history, with a concussion with LOC, as opposed to a syncopal episode causing the fall. Patient was found on CT scan to have a small right frontal subarachnoid hemorrhage. I spoke with Neurosurgery at [facility], where patient had had her craniotomy, and neurosurgeon felt patient should be transferred and observed in the Neuro ICU. I spoke with Dr. Lundberg, the neuro air analysis technician, who did accept the patient in transfer for admission to the ICU. Patient was advised that she would need transfer, and was also advised of her CT findings. Patient remained neurologically intact throughout her stay in the emergency department. Patient was transferred to the neuro ICU at [facility] in critical condition. Orders Ordered: ED Orders 11/21/18 12:58 CT cervical spine wo con Stat CT head/brain wo con Stat 11/21/18 13:25 Complete Blood Count AUTO DIFF Stat Comprehensive Metabolic Panel Stat 11/21/18 15:03 Urine Culture Stat Urine Microscopic Stat Discontinued Medications Sodium Chloride (Normal Saline 0.9%) 1,000 mls @ 1,000 mls/hr IV BOLUS ONE Stop: 11/21/18 13:57 Last Infusion: 11/21/18 16:23 Dose: 0 mls/hr Admin: 11/21/18 13:42 Dose: 1,000 mls/hr Vital Signs - 8 hr 11/21/18 14:00 11/21/18 14:30 11/21/18 15:56 Pulse Rate 93 H 90 96 H Respiratory Rate 13 13 12 Blood Pressure [Left Arm] 144/70 H 136/74 133/73 Pulse Oximetry 99 97 100 MDM - Fall Medical Records Attestation: I reviewed the patient's medical records. Lab Data Attestation: I reviewed the patient's lab results. Result diagrams: 11/21/18 13:25 11/21/18 13:25 Lab Results 11/21/18 11/21/18 11/21/18 Range/Units 13:25 13:25 15:03 WBC 7.3 (4.5-11.0) X10^3/uL RBC 3.43 L (4.0-5.2) X10^6/uL Hgb 11.6 L (12.0-16.0) g/dL Hct 35.6 L (36-46) % MCV 103.8 H (80-100) fL MCH 33.9 (26-34) PG MCHC 32.7 (30-36) % RDW 15.0 H (11.6-14.8) % Plt Count 304 (150-400) X10^3/uL Neut % (Auto) 80.9 H (50-75) % Lymph % (Auto) 15.5 L (25-40) % [place] % (Auto) 2.5 L (3-14) % Eos % (Auto) 0.1 L (2-4) % Baso % (Auto) 1.0 (0-2) % Neut # (Auto) 5900 (3359-7335) /uL Sodium 138 (137-145) mmol/L Potassium 5.1 (3.4-5.1) mmol/L Chloride 101 (98-107) mmol/L Carbon Dioxide 30 (22-32) mmol/L BUN 19 H (7-17) mg/dL Creatinine 0.90 (0.52-1.04) mg/dL Estimated GFR > 60.0 (>60) mL/min BUN/Creatinine Ratio 21.1 (6-22) Glucose 105 (80-110) mg/dL Calcium 10.2 (8.4-10.2) mg/dL Total Bilirubin 0.3 (0.2-1.3) mg/dL AST 28 (14-36) IU/L ALT 25 (9-52) IU/L Alkaline Phosphatase 47 (38-126) U/L Total Protein 6.8 (6.3-8.2) g/dL Albumin 4.0 (3.5-5.0) g/dL Globulin 2.8 (1.7-4.1) g/dL Albumin/Globulin Ratio 1.4 (1.0-2.8) Urine RBC None seen (0-5/HPF) Urine WBC 1-5/hpf (0-5/HPF) Ur Squamous Epith Cells 1-5 /hpf Urine Bacteria Few (2-10) H (None) Ur Culture Indicated? Specimen cultured Micro UA Comment Not Reportable Urine Dip Bedside Urine Glucose Negative Bedside Urine Bilirubin - Negative Bedside Urine Ketone - Negative Urine Specific [place] 1.015 Bedside Urine Occult Blood - Negative Bedside Urine pH 8.0 Bedside Urine Protein - Negative Bedside Urine Urobilinogen - Negative Bedside Urine Nitrite - Negative Bedside Urine Leukocytes +/- [address] scan - head: Attestation: I personally reviewed and interpreted this imaging study as follows: My impression: Right frontal subarachnoid hemorrhage Radiologist's impression: PROCEDURE: CT HEAD/BRAIN WO CON INDICATIONS: head injury with LOC TECHNIQUE: Noncontrast 4.5 mm thick angled axial sections acquired from the foramen magnum to the vertex, with coronal and sagittal reformats. For radiation dose reduction, the following was used: automated exposure control, adjustment of mA and/or kV according to patient size. COMPARISON: [facility], CT, CT HEAD/BRAIN WO CON, 09/25/2018, 13:09. FINDINGS: Image quality: Excellent. CSF spaces: Basal cisterns are patent. No extra-axial fluid collections. The ventricles are unchanged in size and shape. There is mild generalized cerebral volume loss, with resultant ventricular and sulcal prominence. Brain: There is a small amount of subarachnoid hemorrhage along the right frontal lobe medially. Postsurgical changes are redemonstrated in the posterior right frontal and parietal lobes status post prior resection. There are subcortical, periventricular and deep white matter hypodensities consistent with mild chronic small vessel ischemic changes. There is intracranial internal carotid artery atherosclerosis. Skull and face: There is left periorbital and left frontal scalp soft tissue swelling with a subcutaneous or subgaleal scalp hematoma. Calvarium and visualized facial bones demonstrate no acute fractures. There are post craniotomy changes in the posterior frontal and parietal bones redemonstrated. Sinuses: Visualized sinuses and mastoids are clear. IMPRESSION: 1. Small amount of right frontal subarachnoid hemorrhage. 2. Left frontal and periorbital soft tissue swelling with a subcutaneous or subgaleal scalp hematoma without associated acute fractures. 3. Post surgical changes redemonstrated in the posterior right frontal and parietal lobes. Findings discussed with Dr. Ford on 11/21/18 at 1:32 PM. Dictated by: Ludin Robertson M.D. on 11/21/2018 at 13:30 Approved by: Ludin Robertson M.D. on 11/21/2018 at 13:36 CT C-spine: Attestation: I personally reviewed and interpreted this imaging study as follows: My impression: No acute disease Radiologist's impression: PROCEDURE: CT CERVICAL SPINE WO CON INDICATIONS: fall/head/neck injury TECHNIQUE: Noncontrast 3 mm thick sections acquired from the skull base to the T4 level. Sagittal and coronal reformats were then constructed. For radiation dose reduction, the following was used: automated exposure control, adjustment of mA and/or kV according to patient size. COMPARISON: [facility], CT, CT CHEST ABD PEL W CON, 07/01/2018, 7:49. [facility], CT, CT CHEST ABD PEL W CON, 10/04/2018, 11:12. FINDINGS: Image quality: Excellent. Bones: No fractures or dislocations. There is straightening of the cervical lordosis with minimal listhesis at C5-C6. There is mild disc space narrowing at C5-C6 with mild uncovertebral joint arthropathy and mild facet arthropathy. Visualized superior ribs are intact. Soft tissues: Prevertebral soft tissues are normal in thickness. No paravertebral hematomas. No apical pneumothoraces. The visualized lungs redemonstrate an irregular nodule in the left upper lobe measuring up to approximately 1.2 cm which is incompletely included on the current study but appears similar to the 10/04/18 study. There are enlarged prevascular lymph nodes in the visualized mediastinum measuring up to approximately 2 cm in short axis, similar in size to the prior study. Scattered small subcentimeter left supraclavicular lymph nodes are also redemonstrated. IMPRESSION: 1. No fracture or subluxation. 2. Minimal retrolisthesis at C5-C6 likely related to degenerative changes. 3. Partially visualized left upper lobe nodule and mediastinal lymphadenopathy consistent with patient's history of lung cancer appear similar to the prior study of 10/04/18. Dictated by: Ludin Robertson M.D. on 11/21/2018 at 13:37 Approved by: Ludin Robertson M.D. on 11/21/2018 at 13:42 ECG Data Attestation: I personally reviewed and interpreted this ECG as follows: (See below) Interpretation: Twelve lead EKG performed November 21, 2018 at 12:54 p.m., as follows: Regular ventricular rhythm with a rate of 96 beats per minute MI interval 149 milliseconds QRS duration 101 millisecond QTC interval 420 millisecond No ectopy No ST or T-wave changes In summary, normal sinus rhythm, no STEMI; normal EKG as interpreted by ED MD. Critical Care Time Critical Care Time: Yes Total Critical Care Time: 30 Attestation: Critical care was necessary to provide treatment and prevent imminent and potentially life-threatening decline from the following condition: Intracranial hemorrhage. Critical care time includes interviewing and examining the patient, interviewing family members, interviewing EMS personnel, evaluating cardiac output measures, re-evaluating the patient, ordering and reviewing laboratory studies, ordering and reviewing diagnostic imaging studies , ordering and reviewing electrocardiogram and phototypesetting equipment monitor interpretation, speaking with consultants, arranging for transfer, discussing the results with the patient and family, documentation, and arranging for transfer to a higher level of care. Discharge Plan Departure Patient Disposition: [facility] Clinical Impression: Subarachnoid hemorrhage following injury with brief loss of consciousness but without open intracranial wound Discharge Date/Time: 11/21/18 16:25 Interventions: ED Discharge Assessment Last Done: 11/21/18 16:24 Prescriptions: No Action calcium citrate-vitamin D3 [Citracal Regular] 250 MG/200 IU tablet 1 tab PO QDAY Qty: 0 RF: 0 cetirizine 10 MG tablet 10 mg PO QDAY Qty: 30 RF: 3 ranitidine HCl 75 MG tablet 75 mg PO QDAY Qty: 0 RF: 0 docusate sodium [Colace] 100 MG capsule 100 mg PO QDAY Qty: 0 RF: 0 bupropion HCl [Wellbutrin SR] 150 mg tablet extended release 12 hr 150 mg PO BID Qty: 180 RF: 2 levetiracetam [Keppra] 500 mg tablet 500 mg PO BID Qty: 60 RF: 11 prednisone 2.5 mg tablet 2.5 mg PO DAILY Qty: 30 RF: 0 mirtazapine 7.5 mg tablet 7.5 mg PO DAILY Qty: 30 RF: 3 metoclopramide HCl [Reglan] 10 mg tablet 10 mg PO Q6H Qty: 30 RF: 0 albuterol sulfate [Ventolin HFA] 90 MCG/PUFF HFA aerosol inhaler 2 puff INH Q4HP PRN (Reason: Adequate Ventilation) RF: 0 melatonin 3 mg Tablet 3 mg PO BEDTIME PRN (Reason: Agitation) RF: 0 folic acid 1 mg Tablet 1 mg PO DAILY Qty: 90 RF: 1 ondansetron 8 mg Tablet,Disintegrating 8 mg PO TID PRN (Reason: Nausea) RF: 0 metoclopramide HCl [Reglan] 10 mg Tablet 10 mg PO Q6H RF: 0 levothyroxine [Synthroid] 50 mcg Tablet 100 mcg PO DAILY Qty: 60 RF: 0 prednisone [Deltasone] 20 mg Tablet 20 mg PO DAILY Qty: 60 RF: 1 Referrals: Dank Leong MD [Primary Care Provider] -
[2018-11-21 13:34] LABS: Add Manual Diff / Slide Review NO; Eosinophils Percent Auto 0.1 % (2-4); Hematocrit 35.6 % (36-46); Hemoglobin 11.6 g/dL (12.0-16.0); Lymphocytes Percent Auto 15.5 % (25-40); Mean Corpuscular HGB Conc 32.7 % (30-36); Mean Corpuscular Hemoglobin 33.9 PG (26-34); Mean Corpuscular Volume 103.8 fL (80-100); Monocytes Percent Auto 2.5 % (3-14); Neutrophils Absolute Auto 5900 /uL (1500-7000); Neutrophils Percent Auto 80.9 % (50-75); Platelet Count 304 X10^3/uL (150-400); Red Blood Cell Count 3.43 X10^6/uL (4.0-5.2); White Blood Cell Count 7.3 X10^3/uL (4.5-11.0)
[2018-11-21] MEDS: SODIUM CHLORIDE 0.9% 1,000 ML 1000 ML IV (13:42)
[2018-11-21 13:43] LABS: Alanine Aminotransferase 25 IU/L (9-52); Albumin Globulin Ratio 1.4 (1.0-2.8); Alkaline Phosphatase 47 U/L (38-126); Aspartate Aminotransferase 28 IU/L (14-36); BUN Creatinine Ratio 21.1 (6-22); Bilirubin Total 0.3 mg/dL (0.2-1.3); Blood Urea Nitrogen 19 mg/dL (7-17); Calcium 10.2 mg/dL (8.4-10.2); Carbon Dioxide 30 mmol/L (22-32); Chloride 101 mmol/L (98-107); Estimated Glomerular Filt Rate > 60.0 mL/min (>60); Globulin 2.8 g/dL (1.7-4.1); Glucose 105 mg/dL (80-110); HEMOLYSIS 16 (0-50); Potassium 5.1 mmol/L (3.4-5.1); Sodium 138 mmol/L (137-145); Total Protein 6.8 g/dL (6.3-8.2)
--- NOTE | 2018-11-21 13:50 | PC.NURSE ---
Pt fell while walking down a slope. Pt states she does not recall anything that happened before the event. Pt has hematoma on left side of head, and bruise on right knee. Denies pain and hitting anywhere else. Pt A/O x4. no weakness or other symptoms noted
[2018-11-21 14:00] VITALS: BP 144/70; PULSE 93; RESP 13; O2SAT 99
[2018-11-21 14:30] VITALS: BP 136/74; PULSE 90; RESP 13; O2SAT 97
[2018-11-21 15:22] LABS: Bacteria Urine Few (2-10); Culture Indicated Urine Specimen Cultured; RBC Urine None Seen (0-5/HPF); Squamous Epithelial Cell Urine 1-5 /HPF; WBC Urine 1-5/HPF (0-5/HPF)
[2018-11-21 15:56] VITALS: BP 133/73; PULSE 96; RESP 12; O2SAT 100
== END 2018-11-21 16:25 | disposition short-term general hospital (02) ==
PROVIDERS: Emergency Provider Emergency Medicine; Family Provider Family Medicine; PCP Family Medicine
DX: S06.6X9A Traumatic subarachnoid hemorrhage with loss of consciousness of unspecified duration, initial encounter (principal); S01.90XA Unspecified open wound of unspecified part of head, initial encounter; W19.XXXA Unspecified fall, initial encounter
CPT/HCPCS: 36415; 70450; 72125; 80053; 81003; 81015; 85025; 87077; 87086; 93005; 96360; 96361; 99283; 99285